=== PATIENT | female | born 1965 | race Hispanic/Latino ===

== ENCOUNTER 2016-06-18 15:50 | Inpatient (IN) | payer MEDICAID ==
[2016-06-18 15:51] VITALS: BMI 28.1
[2016-06-18 17:27] LABS: BASO # 0.1 K/uL (0.0-0.2); BASO % 0.8 % (0.0-2.0); EOS # 0.1 K/uL (0.0-0.7); EOS % 0.7 % (0.0-4.0); HEMATOCRIT 25.2 % (34.0-47.0); LYMPH # 2.2 K/uL (1.0-4.3); LYMPH % 13.2 % (20.0-40.0); MEAN CORPUSCULAR HEMOGLOBIN 32.7 pg (27.0-31.0); MEAN CORPUSCULAR HGB CONC 31.8 g/dL (33.0-37.0); MEAN PLATELET VOLUME 8.5 fL (7.2-11.7); MONO # 1.1 K/uL (0.0-0.8); MONO % 6.5 % (0.0-10.0); RED CELL DISTRIBUTION WIDTH 19.4 % (11.5-14.5)
--- NOTE | 2016-06-18 17:27 | C.PDOC ---
History Of Present Illness 50 year old female with a history of ESRD, DM, HTN, anemia, and CHF, presents to the ED after being sent from [facility] by Dr. Martinez for a hemoglobin of 7.3. Nursing notes also febrile T-max 99.2 and treated with Tylenol. Did not get dialysis today. PT axo x 2, limited information. Pt states she feels "good. " Time Seen by Provider: 06/18/16 16:32 Chief Complaint (Nursing): Abnormal Labs History Per: Other ([facility] papers) History/Exam Limitations: clinical condition Onset/Duration Of Symptoms: Days Current Symptoms Are (Timing): Still Present Severity: Mild Past Medical History Reviewed: Historical Data, Nursing Documentation, Vital Signs Vital Signs: Last Vital Signs Temp 98.1 F 06/18/16 17:55 Pulse 82 06/18/16 17:55 Resp 20 06/18/16 17:55 BP 159/91 H 06/18/16 17:55 Pulse Ox 97 06/18/16 18:13 - Medical History PMH: Anemia, Anxiety, CHF, Dementia, Depression, Diabetes, HTN, Hypercholesterolemia, Peripheral Edema (+2), Pneumonia, End Stage Renal Disease (DIALYSIS MWF), Chronic Kidney Disease Surgical History: Cholecystectomy (04/02/13) - [facility] Procedures BONE MARROW BIOPSY (02/10/13) DILATION OF LEFT CEPHALIC VEIN, PERCUTANEOUS APPROACH (08/20/15) EXTIRPATION OF MATTER FROM LEFT CEPHALIC VEIN, PERC APPROACH (08/20/15) FLUOROSCOPY OF DIALYSIS SHUNT/FISTULA USING OTHER CONTRAST (08/20/15) INJECT ANTICOAGULANT (03/02/14) INSERT INFUSION DEV IN R INT JUGULAR VEIN, PERC (08/20/15) LAPAROSCOPIC CHOLECYSTECTOMY (03/18/13) MAGNETIC RESONANCE IMAGING OF BRAIN AND BRAIN STEM (03/13/06) NEBULIZER THERAPY (01/27/07) OTHER ENDOSCOPY OF SM INTEST (02/10/13) OTHER SKIN & SUBQ I D (07/08/04) PACKED CELL TRANSFUSION (03/02/14) PERFORMANCE OF URINARY FILTRATION, MULTIPLE (08/20/15) PERFORMANCE OF URINARY FILTRATION, SINGLE (02/15/16) TETANUS TOXOID ADMINIST (07/08/04) ULTRASONOGRAPHY OF RIGHT JUGULAR VEINS, GUIDANCE (08/20/15) Family History: States: Unknown Family Hx - Social History Hx Tobacco Use: No Hx Alcohol Use: No Hx Substance Use: No - Immunization History Hx Tetanus Toxoid Vaccination: No Hx Influenza Vaccination: No (04/2015) Hx Pneumococcal Vaccination: Yes (03/2014) Review Of Systems Constitutional: Positive for: Fever, Other (Abnormal labs) Cardiovascular: Negative for: Chest Pain Respiratory: Negative for: Shortness of Breath Gastrointestinal: Negative for: Vomiting, Diarrhea Physical Exam - Physical Exam Appears: Non-toxic, No Acute Distress Skin: Warm, Dry, Other (+Erythematous sacral ulcer- stage 2) Head: Atraumatic, Normacephalic Eye(s): bilateral: Normal Inspection, EOMI Nose: Normal Oral Mucosa: Moist Chest: Symmetrical Cardiovascular: Rhythm Regular Respiratory: Normal Breath Sounds, No Accessory Muscle Use, No Rales, No Rhonchi , No Wheezing Gastrointestinal/Abdominal: Soft, No Tenderness, No Distention, No Guarding, No Rebound Extremity: Other (+Contracture to the left upper extremity) Neurological/Psych: Other (+Alert and oriented x2.) ED Course And Treatment - Laboratory Results Result Diagrams: 06/18/16 17:15 06/18/16 17:15 ECG: Interpreted By Me, Viewed By Me ECG Rhythm: Sinus Rhythm Interpretation Of ECG: No peaked T waves. Rate From EC O2 Sat by Pulse Oximetry: 97 (Room air) Pulse Ox Interpretation: Normal Progress Note: Blood work and urinalysis ordered and reviewed. She is a patient of Dr. Eldridge and will be admitted to the Hospitalist. Case discussed with Dr. Thomas who agreed with plan and admission. Disposition - Disposition Disposition: HOSPITALIZED Disposition Time: 19:22 Condition: STABLE - Clinical Impression Clinical Impression: ESRD (end stage renal disease) on dialysis, Hyperkalemia, Leukocytosis, Sacral decubitus ulcer, stage II - PA / INSPECTOR MECHANICAL / Resident Statement MD/DO has reviewed & agrees with the documentation as recorded. - Scribe Statement The provider has reviewed the documentation as recorded by the Scribe Mildred Yee. All medical record entries made by the Scribe were at my direction and personally dictated by me. I have reviewed the chart and agree that the record accurately reflects my personal performance of the history, physical exam, medical decision making, and the department course for this patient. I have also personally directed, reviewed, and agree with the discharge instructions and disposition.
[2016-06-18 17:34] LABS: POTASSIUM 5.9 mmol/L (3.6-5.2)
[2016-06-18 17:36] LABS: BILIRUBIN,TOTAL 1.1 mg/dL (0.2-1.3); MEAN CELL VOLUME 102.9 fL (81.0-99.0); WHITE BLOOD COUNT 16.8 K/uL (4.8-10.8)
[2016-06-18 17:37] LABS: ALB/GLOB RATIO 1.1 (1.0-2.1); CALCIUM 10.7 mg/dl (8.6-10.4); TOTAL PROTEIN 7.5 g/dL (6.3-8.3)
[2016-06-18 19:59] LABS: IRON 38 ug/dL (37-170)
--- NOTE | 2016-06-18 20:16 | CP.PCM.HP ---
<Sal Napier - Last Filed: 06/18/16 20:11> History of Present Illness - History of Present Illness History of Present Illness: cc: unable to obtain HPI: Patient is a 50 year old female with PMHx of depression, ESRD on HD, htn, HLD, DM, hx of CVAs, hx of Seizures, presenting to the ED after being brought in from [facility] for low grade fever (99.2), leukocytosis, and anemia of 7.3. Patient is a poor historian, AAO x1, disoriented to time and place. Patient does not appear to be in any acute distress and only complains of some dryness in her mouth. Patient is unaware of why she is here. As documented in previous records All: NKDA PMD: Dr. Eldridge, Dr. Mi (nephro) PMH: depression, ESRD on HD, HTN, hyperlipidemia, DM II, old CVA, hx of seizures PSH: cholecystectomy in 2013 Soc Hx: quit tobacco/etoh use in 2010 Present on Admission - Present on Admission Any Indicators Present on Admission: No Review of Systems - Constitutional Constitutional: absent: Chills, Fever, Weight Loss, Weakness - EENT Eyes: absent: Blurred Vision, Other Visual Disturbances, Loss of Vision Nose/Mouth/Throat: Dry Mouth - Cardiovascular Cardiovascular: absent: Chest Pain, Claudication, Irregular Heart Rhythm, Leg Edema, Palpitations, Pedal Edema - Respiratory Respiratory: absent: Cough, Dyspnea, Dyspnea on Exertion, Wheezing - Gastrointestinal Gastrointestinal: absent: Abdominal Pain, Constipation, Diarrhea, Nausea, Vomiting - Musculoskeletal Musculoskeletal: absent: Atrophy, Myalgias, Numbness, Tingling - Integumentary Integumentary: absent: Change in Hair, Skin Ulcer, Sores, Striae, Wounds - Neurological Neurological: absent: Abnormal Movements, Tingling, Weakness - Psychiatric Psychiatric: absent: Anxiety, Panic Attacks, Suicidal Ideation - Endocrine Endocrine: absent: Fatigue, Palpitations Past Patient History - Infectious Disease Hx of Infectious Diseases: None - Tetanus Immunizations Tetanus Immunization: Unknown - Past Medical History & Family History Past Medical History?: Yes - Past Social History Smoking Status: Former Smoker Chewing Tobacco Use: No Cigar Use: No Alcohol: None - CARDIAC Hx Congestive Heart Failure: Yes Hx Hypercholesterolemia: Yes Hx Hypertension: Yes Hx Peripheral Edema: Yes (+2) - PULMONARY Hx Pneumonia: Yes - NEUROLOGICAL Hx Dementia: Yes - HEENT Hx HEENT Problems: Yes (poor vision, blurred right eye) - RENAL Hx Chronic Kidney Disease: Yes - ENDOCRINE/METABOLIC Hx Hyperthyroidism: No Hx Hypothyroidism: No - HEMATOLOGICAL/ONCOLOGICAL Hx Anemia: Yes - INTEGUMENTARY Hx Dermatological Problems: No - MUSCULOSKELETAL/RHEUMATOLOGICAL Hx Arthritis: No Hx Fractures: No Hx Osteoporosis: No - GASTROINTESTINAL Hx Crohn's Disease: No Hx Diverticulitis: No Hx Gall Bladder Disease: No Hx Pancreatitis: No - GENITOURINARY/GYNECOLOGICAL Hx Sexually Transmitted Disorders: No - PSYCHIATRIC Hx Anxiety: Yes Hx Depression: Yes Hx Substance Use: No - SURGICAL HISTORY Hx Cholecystectomy: Yes (04/02/13) - ANESTHESIA Hx Anesthesia: Yes Hx Anesthesia Reactions: No Hx Malignant Hyperthermia: No Meds Allergies/Adverse Reactions: Allergies Allergy/AdvReac Type Severity Reaction Status Date / Time No Known Allergies Allergy Verified 06/18/16 16:03 Physical Exam - Constitutional Appears: Non-toxic, No Acute Distress, Older Than Stated Age - Head Exam Head Exam: ATRAUMATIC, NORMAL INSPECTION, NORMOCEPHALIC - Eye Exam Pupil Exam: NORMAL ACCOMODATION - ENT Exam ENT Exam: Mucous Membranes Dry, Mucous Membranes Moist - Respiratory Exam Respiratory Exam: Clear to Auscultation Bilateral, NORMAL BREATHING PATTERN. absent: Prolonged Expiratory Phase, Rales, Rhonchi, Wheezes - Cardiovascular Exam Cardiovascular Exam: REGULAR RHYTHM, +S1, +S2 - GI/Abdominal Exam GI & Abdominal Exam: Normal Bowel Sounds, Soft. absent: Distended, Firm, Tenderness - Extremities Exam Extremities exam: Positive for: normal capillary refill, pedal pulses present - Neurological Exam Neurological exam: Alert, CN II-XII Intact, Oriented x3 - Psychiatric Exam Psychiatric exam: Normal Affect, Normal Mood - Skin Skin Exam: Dry, Intact, Normal Color, Warm Results - Vital Signs Recent Vital Signs: Last Vital Signs Temp 98.6 F 06/18/16 18:15 Pulse 80 06/18/16 18:15 Resp 18 06/18/16 18:15 BP 173/87 H 06/18/16 18:15 Pulse Ox 97 06/18/16 19:23 - Labs Result Diagrams: 06/18/16 17:15 06/18/16 17:15 Labs: Laboratory Results - last 24 hr 06/18/16 19:42 Iron 38 Assessment & Plan (1) Leukocytosis Status: Acute Comment: WBC 16.8. Afebrile. Tylenol Q6h PRN for fevers. Collected 2 sets of blood cultures. f/u UA, Urine culture, C diff. CXR- followup official read. Repeat CXR tomorrow AM. Given Vanco 1gm IVPB today, started on Vanco 500mg IVPB MWF. started on Zosyn 2.25gm IVPB Q8h. started on Florastor 250mg PO BID (2) Anemia Status: Acute Comment: Hgb 8.0. MCV 102.9. stool occult neg. f/u B12, folate, iron studies , retic. Compared to past records, patients Hgb is relatively stable, will continue to monitor and transfuse as needed (3) Hyperkalemia Status: Acute Comment: K+ 5.9 on admission. Will undergo dialysis. Repeat BMP for later tonight. (4) ESRD (end stage renal disease) on dialysis Status: Chronic Comment: consult nephro- Dr. Mi. HD MWF (5) HTN (hypertension) Status: Chronic Comment: Continue home meds: Norvasc 10mg PO Daily. If elevated, will consider starting clonidine, as [facility] she [facility] on PRN clonidine 0.1mg (6) Hypercholesteremia Status: Chronic Comment: started on Crestor 10mg PO HS (7) Hypercalcemia associated with chronic dialysis Status: Acute Comment: Ca- 10.7. Likely due to prison dialysis. Bone density survey- 12/24- shows patchy demineralization seen at the skull and bilateral femurs and bilateral humeri (Please see full report) (8) Seizure Status: Acute Comment: Continue Trileptal 300mg PO BID. Seizure precautions (9) History of CVA (cerebrovascular accident) Status: Chronic Comment: Continue Plavix 75mg PO Daily. Continue Asa 81mg PO Daily (10) Sacral decubitus ulcer Status: Acute Comment: Wound care nurse referral. Turn pt Q2h (11) History of CHF (congestive heart failure) Status: Acute Comment: ordered 2d echo (12) Prophylactic measure Status: Chronic Comment: Pepcid 20mg PO BID. SCDs. Heparin 5000U SC Q8h <Dorie Murphy V - Last Filed: 06/19/16 07:52> Results - Vital Signs Recent Vital Signs: Last Vital Signs Temp 97.7 F 06/19/16 02:20 Pulse 64 06/19/16 03:00 Resp 20 06/19/16 02:20 BP 125/79 06/19/16 02:20 Pulse Ox 97 06/19/16 02:20 - Labs Result Diagrams: 06/19/16 06:56 06/19/16 06:56 Labs: Laboratory Results - last 24 hr 06/18/16 06/18/16 06/19/16 19:42 22:31 06:18 WBC RBC Hgb Hct MCV MCH MCHC RDW Plt Count MPV Neut % (Auto) Lymph % (Auto) [place] % (Auto) Eos % (Auto) Baso % (Auto) Neut # Lymph # [place] # Eos # Baso # Retic Count Sodium Potassium Chloride POC Glucose (mg/dL) 120 H 107 Iron 38 TIBC 265 % Saturation 15 L Albumin Cholesterol 06/19/16 06:56 WBC 15.3 H RBC 2.49 L Hgb 8.2 L Hct 25.5 L MCV 102.2 H MCH 32.7 H MCHC 32.0 L RDW 19.4 H Plt Count 295 MPV 8.5 Neut % (Auto) 75.4 H Lymph % (Auto) 14.7 L [place] % (Auto) 7.4 Eos % (Auto) 1.4 Baso % (Auto) 1.1 Neut # 11.6 H Lymph # 2.3 [place] # 1.1 H Eos # 0.2 Baso # 0.2 Retic Count 4.3 H D Sodium 138 Potassium 3.9 Chloride 91 L POC Glucose (mg/dL) Iron TIBC % Saturation Albumin 3.7 Cholesterol 157 Attending/Attestation - Attestation I have personally seen and examined this patient.: Yes I have fully participated in the care of the patient.: Yes I have reviewed all pertinent clinical information: Yes Notes (Text): This is late computer entry for 06/18/16 seen during her dialysis session at approximately 6:30PM. Patient is a poor historian unable to explain why she was brought to the hospital. Per transfer paperwork, patient transferred from her [facility] dialysis wherein she had an elevated temperature of 99.2F and anemia of hgb: 7.3. Patient reports she does not feel good. Patient reports she feels dry and does not have much of an appetite. Per review of patient's transfer paperwork and review of EMR, patient has history of diabetes, seizures, ESRD, hyperlipidemia, anemia of chronic disease, and congestive heart failure. Patient unable to tell me if she has taken her medications today. Patient is a poor historian and no family with her at bedside. Upon physical exam, patient is warm to touch, appears dry with white thrush over oral mucosa, heart sounds appear normal and lung sounds appear to have good airway exchange no apparent lung sounds, and pulse is palpable. Unable to turn patient during her dialysis to observe sacral decub noted by ER; will assess patient post dialysis. Upon review of labs, patient comes in with leukocytosis, afebrile, mild anemia but strongly suspecting relating to anemia of chronic disease, and hypekalemia. Patient receiving dialysis at bedside which should correct potassium. Discussed admitting orders with the resident; and transferred patient to telemetry given hyperkalemia and history of congestive heart failure. Nephrology consult (Dr. Martinez/Shmuel) on board Assessment/Plan (1) Leukocytosis Status: Acute Comment: WBC 16.8. Afebrile. Tylenol Q6h PRN for fevers. In the ED, patient had 2 blood cultures collected; repeat blood cultures taken during dialysis f/u UA, Urine culture, C diff. CXR- followup official read. Repeat CXR tomorrow AM post dialysis Given Vanco 1gm IVPB X1 today, Started on Vanco 500mg IVPB MW on dialysis days. Started on Zosyn 2.25gm IVPB Q8h. started on Florastor 250mg PO BID (2) Anemia Status: Acute Comment: Hgb 8.0. MCV 102.9. stool occult neg. f/u B12, folate, iron studies, retic. Compared to past records, patients Hgb is relatively stable, will continue to monitor and transfuse as needed (her prior blood work from 06/14/16 with her on the chart) (3) Hyperkalemia Status: Acute Comment: K+ 5.9 on admission. Will undergo dialysis. Repeat BMP for later tonight. Patient to be monitor on telemetry (4) ESRD (end stage renal disease) on dialysis Status: Chronic Comment: consult nephro- Dr. Mi. HD MWF (5) HTN (hypertension) Status: Chronic Comment: Continue home meds; per review of EMR and transfer paperwork there is discrepancy in her blood pressure medications. Patient undergoing dialysis today. Patient started on Norvasc 10mg PO daily will monitor for rebound hypertension given she [facility] (6) Hypercholesteremia Status: Chronic Comment: started on Crestor 10mg PO HS. Fasting lipid in AM. Lipitor not available on formulary. (7) Hypercalcemia associated with chronic dialysis Status: Acute Comment: Ca- 10.7. Likely due to termination clerk dialysis. Bone density survey- 02/18/16- shows patchy demineralization seen at the skull and bilateral femurs and bilateral humeri (Please see full report) Will follow-up with nephrology Monitor on telemetry (8) Seizure Status: Chronic Comment: Continue Trileptal 300mg PO BID. Seizure precautions (9) History of CVA (cerebrovascular accident) Status: Chronic Comment: Continue Plavix 75mg PO Daily. Continue Asa 81mg PO Daily, continue Crestor 10mg POqHS PT/OT eval (10) Sacral decubitus ulcer Status: Acute Comment: Wound care nurse referral. Turn pt Q2h; will need to monitor site post -dialysis given she currently connected to the dialysis machine rule out sources for leukocytosis (11) History of CHF (congestive heart failure) Status: Chronic Comment: ordered 2d echo for baseline EF Patient started on Aspirin, Plavix, Statin, and currently on norvasc. Monitor daily weights Intake and outputs (12) Prophylactic measure Status: Chronic Comment: Pepcid 20mg PO daily. SCDs. Heparin 5000U SC Q12h PT/OT
[2016-06-18] MEDS: Nystatin 100,000 Units/ml Oral Susp 5 ml UD PO SCH (22:07)
[2016-06-19] MEDS ORDERED: Sodium Chloride 0.9% 1,000 ML IV SCH (01:00)
[2016-06-19] MEDS: Piperacill/Tazo 2.25gm in Dex 50 ML IVPB SCH ×4 (03:00→19:00)
[2016-06-19 07:20] LABS: MEAN PLATELET VOLUME 8.5 fL (7.2-11.7); MONO # 1.1 K/uL (0.0-0.8)
[2016-06-19 07:36] LABS: CHLORIDE 91 mmol/L (98-107); POTASSIUM 3.9 mmol/L (3.6-5.2); SODIUM 138 mmol/L (132-148)
[2016-06-19 07:37] LABS: BASO # 0.2 K/uL (0.0-0.2); BASO % 1.1 % (0.0-2.0); EOS # 0.2 K/uL (0.0-0.7); EOS % 1.4 % (0.0-4.0); HEMATOCRIT 25.5 % (34.0-47.0); LYMPH # 2.3 K/uL (1.0-4.3); LYMPH % 14.7 % (20.0-40.0); MEAN CELL VOLUME 102.2 fL (81.0-99.0); MEAN CORPUSCULAR HEMOGLOBIN 32.7 pg (27.0-31.0); MONO % 7.4 % (0.0-10.0); RED CELL DISTRIBUTION WIDTH 19.4 % (11.5-14.5); RETIC% 4.3 % (0.5-1.5); WHITE BLOOD COUNT 15.3 K/uL (4.8-10.8)
[2016-06-19 07:38] LABS: ALB/GLOB RATIO 1.3 (1.0-2.1); ALKALINE PHOSPHATASE 143 U/L (38-126); AST/SGOT 22 U/L (14-36); BILIRUBIN,TOTAL 0.6 mg/dL (0.2-1.3); BLOOD UREA NITROGEN 28 mg/dL (7-17); CARBON DIOXIDE 27 mmol/L (22-30); CHOLESTEROL 157 mg/dL (0-199); GFR AFRICAN-AMERICAN 16; GLUCOSE,RANDOM 80 mg/dL (65-105); TOTAL PROTEIN 6.6 g/dL (6.3-8.3)
[2016-06-19 07:39] LABS: ALT/SGPT 28 U/L (9-52); CALCIUM 10.1 mg/dl (8.6-10.4)
--- NOTE | 2016-06-19 08:27 | RAD ---
PROCEDURE: CHEST RADIOGRAPH, 1 VIEW HISTORY: fever COMPARISON: 02/15/2016 FINDINGS: LUNGS: Left central venous catheter tip extending into the distal right atrium. No focal infiltrate or effusion. PLEURA: No pneumothorax or pleural fluid seen. CARDIOVASCULAR: Normal. OSSEOUS STRUCTURES: No significant abnormalities. VISUALIZED UPPER ABDOMEN: Normal. OTHER FINDINGS: None. IMPRESSION: Left central venous catheter tip extending into the distal right atrium. No focal infiltrate or effusion.
[2016-06-19 08:29] LABS: FOLATE > 20.0 ng/mL
--- NOTE | 2016-06-19 09:03 | RAD ---
HISTORY: fevers COMPARISON: 06/18/2016 FINDINGS: LUNGS: Lines and tubes in stable position. Mild venous congestion. Right hilar prominence. PLEURA: No significant pleural effusion identified, no pneumothorax apparent. CARDIOVASCULAR: Normal. OSSEOUS STRUCTURES: No significant abnormalities. VISUALIZED UPPER ABDOMEN: Normal. OTHER FINDINGS: None. IMPRESSION: Lines and tubes in stable position. Mild venous congestion. Right hilar prominence.
--- NOTE | 2016-06-19 09:40 | CP.PCM.PN ---
<Nallely Beck - Last Filed: 06/19/16 13:15> Subjective - Date & Time of Evaluation Date of Evaluation: 06/19/16 Time of Evaluation: 09:38 - Subjective Subjective: Patient seen and examined at bedside. Full review of systems unable to be obtained as patient oriented only to herself. She does not know the year, her age, or why she was brought into the hospital. She states she feels horrible but denies fever, chills, chest pain, shortness of breath, abdominal pain, nausea, vomiting, diarrhea, and constipation. Patient states she makes some urine; however, she is notably distended on exam. Objective - Vital Signs/Intake and Output Vital Signs (last 24 hours): Temp Pulse Resp BP Pulse Ox 98.1 F 64 20 171/78 H 98 06/19/16 07:00 06/19/16 09:09 06/19/16 07:00 06/19/16 07:00 06/19/16 07:00 Intake and Output: 06/19/16 06/19/16 06:59 18:59 Intake Total 0 Balance 0 - Medications Medications: Current Medications Acetaminophen (Tylenol 325mg Tab) 650 mg PO Q6 PRN PRN Reason: Fever >100.4 F Amlodipine Besylate (Norvasc) 10 mg PO DAILY [facility] Aspirin (Ecotrin) 81 mg PO DAILY [facility] Clopidogrel Bisulfate (Plavix) 75 mg PO DAILY [facility] Famotidine (Pepcid) 20 mg PO DAILY [facility] Gabapentin (Neurontin) 100 mg PO TID [facility] Heparin Sodium (Porcine) (Heparin) 5,000 units SC Q12 [facility] Piperacillin Sod/Tazobactam Sod (Zosyn 2.25 Gm Iv Premix) 50 mls @ 100 mls/hr IVPB Q8H [facility] Last Admin: 06/19/16 03:00 Dose: Not Given Vancomycin HCl 500 mg/ Sodium (Chloride) 100 mls @ 100 mls/hr IVPB MWF [facility] Sodium Chloride (Sodium Chloride 0.9%) 1,000 mls @ 50 mls/hr IV .Q20H [facility] Last Admin: 06/19/16 00:22 Dose: 50 mls/hr Nystatin (Nystatin Oral Susp) 5 ml PO QID [facility] Last Admin: 06/18/16 22:07 Dose: Not Given Oxcarbazepine (Trileptal) 300 mg PO BID [facility] Rosuvastatin Calcium (Crestor) 10 mg PO HS [facility] Last Admin: 06/18/16 22:04 Dose: 10 mg Saccharomyces Boulardii (Florastor) 250 mg PO BID [facility] - Labs Labs: 06/19/16 06:56 06/19/16 06:56 PT 10.8 SECONDS (9.7-12.2) 06/18/16 17:15 INR 1.0 06/18/16 17:15 APTT 23 SECONDS (21-34) 06/18/16 17:15 - Constitutional Appears: Non-toxic, No Acute Distress, Older Than Stated Age - Head Exam Head Exam: ATRAUMATIC, NORMAL INSPECTION, NORMOCEPHALIC - Eye Exam Eye Exam: PERRL Additional comments: left strabismus. Unable to follow command to perform H in space. - ENT Exam ENT Exam: Mucous Membranes Moist Additional comments: white film noted on dorsum of tongue - Neck Exam Neck Exam: Normal Inspection - Respiratory Exam Respiratory Exam: Clear to Ausculation Bilateral, NORMAL BREATHING PATTERN. absent: Rales, Rhonchi, Wheezes - Cardiovascular Exam Cardiovascular Exam: +S1, +S2. absent: Tachycardia, Murmur - GI/Abdominal Exam GI & Abdominal Exam: Distended, Tenderness, Normal Bowel Sounds Additional comments: bladder distended - Extremities Exam Additional comments: 3/5 strength bilaterally to upper extremities, 2/5 strength bilaterally to lower extremities. Pulses intact , 2+ throughout - Neurological Exam Neurological Exam: Alert Neuro motor strength exam: Left Upper Extremity: 3, Right Upper Extremity: 3, Left Lower Extremity: 2/1, Right Lower Extremity: 2/1 Additional comments: patient only oriented to self - Psychiatric Exam Psychiatric exam: Normal Affect, Normal Mood - Skin Additional comments: Stage I/II Sacral Ulcer Assessment and Plan - Assessment and Plan (Free Text) Assessment: (1) Leukocytosis Status: Acute Likely secondary to urinary tract infection secondary to retention. Patient noted to be distended on exam. Stat order placed for straight cath. Follow-up UA and culture. Procalcitonin 1.49 WBC improved from 16.8 to 15.3. Afebrile. Tylenol Q6h PRN for fevers. In the ED, patient had 2 blood cultures collected; repeat blood cultures taken during dialysis. Will follow-up. C diff. negative CXR (06/18/16)-No focal infiltrate Repeat CXR (06/19/16)-mild venous congestion. Right hilar prominence. Given Vanco 1gm IVPB X1 today, Continue on Vanco 500mg IVPB MW on dialysis days. Continue on Zosyn 2.25gm IVPB Q8h. Continue on Florastor 250mg PO BID (2) Anemia Status: Acute Comment: Hgb improved from 8.0 to 8.2. MCV 102.9. RDW 19.4 tool occult neg. Retic count 4.3, Iron 38, TIBC 265, % Saturation 11, Ferritin 1350 Vit B12 >1000, folate >20.0 Compared to past records, patients Hgb is relatively stable, will continue to monitor and transfuse as needed (her prior blood work from 06/14/16 with her on the chart) Per nephrology, Dr. Mi, will start Epoetin brian 10,000 unit SC MWF (3) Hyperkalemia Status: Acute Comment: Resolved K+ 5.9 on admission. Patient to be monitor on telemetry (4) ESRD (end stage renal disease) on dialysis Status: Chronic Hemodialysis on MWF (5) HTN (hypertension) Status: Chronic Patient undergoing dialysis today. Continue Norvasc 10mg PO daily will monitor for rebound hypertension given she was being given PRN clonidine at the skilled nursing (6) Hypercholesteremia Status: Chronic Comment: Continue Crestor 10mg PO HS. Triglycerides 225 (7) Hypercalcemia associated with chronic dialysis Status: Acute Comment: Ca- 10.7. Likely due to [facility] dialysis. Bone density survey- 02/18/16- shows patchy demineralization seen at the skull and bilateral femurs and bilateral humeri (Please see full report) Will follow-up with nephrology Monitor on telemetry (8) Seizure Status: Chronic Comment: Continue Trileptal 300mg PO BID. Seizure precautions (9) History of CVA (cerebrovascular accident) Status: Chronic Comment: Continue Plavix 75mg PO Daily. Continue Asa 81mg PO Daily, continue Crestor 10mg POqHS PT/OT eval (10) Sacral decubitus ulcer Status: Acute Stage I/II sacral ulcer Wound care nurse referral. Turn pt Q2h; will need to monitor site post- dialysis given she currently connected to the dialysis machine rule out sources for leukocytosis (11) Thrush Status: Acute Continue Nystatin 5 ml po QID (12) History of CHF (congestive heart failure) Status: Chronic Will follow-up echo for baseline EF Patient started on Aspirin, Plavix, Statin, and currently on norvasc. Monitor daily weights Intake and outputs (13) Prophylactic measure Status: Chronic Pepcid 20mg PO daily SCDs Heparin 5000U SC Q12h PT/OT <Dorie Murphy V - Last Filed: 06/20/16 16:34> Objective - Vital Signs/Intake and Output Vital Signs (last 24 hours): Temp Pulse Resp BP Pulse Ox 97.9 F 71 18 149/82 99 06/20/16 15:41 06/20/16 15:41 06/20/16 15:41 06/20/16 15:41 06/20/16 15:41 Intake and Output: 06/20/16 06/20/16 06:59 18:59 Intake Total 24 Balance 24 - Medications Medications: Current Medications Acetaminophen (Tylenol 325mg Tab) 650 mg PO Q6 PRN PRN Reason: Fever >100.4 F Amlodipine Besylate (Norvasc) 10 mg PO DAILY [facility] Last Admin: 06/20/16 12:12 Dose: Not Given Aspirin (Ecotrin) 81 mg PO DAILY [facility] Last Admin: 06/20/16 09:47 Dose: Not Given Clopidogrel Bisulfate (Plavix) 75 mg PO DAILY [facility] Last Admin: 06/20/16 09:48 Dose: Not Given Epoetin Brian (Procrit) 10,000 unit IV MWF [facility] Last Admin: 06/20/16 12:19 Dose: 10,000 unit Famotidine (Pepcid) 20 mg PO DAILY [facility] Last Admin: 06/20/16 09:48 Dose: Not Given Gabapentin (Neurontin) 100 mg PO TID [facility] Last Admin: 06/20/16 14:07 Dose: 100 mg Heparin Sodium (Porcine) (Heparin) 5,000 units SC Q12 [facility] Last Admin: 06/20/16 09:47 Dose: Not Given Piperacillin Sod/Tazobactam Sod (Zosyn 2.25 Gm Iv Premix) 50 mls @ 100 mls/hr IVPB Q8H [facility] Last Admin: 06/20/16 12:13 Dose: Not Given Vancomycin HCl 500 mg/ Sodium (Chloride) 100 mls @ 100 mls/hr IVPB MWF [facility] Last Admin: 06/20/16 10:00 Dose: Not Given Nystatin (Nystatin Oral Susp) 5 ml PO QID [facility] Last Admin: 06/20/16 14:06 Dose: 5 ml Oxcarbazepine (Trileptal) 300 mg PO BID [facility] Last Admin: 06/20/16 09:48 Dose: Not Given Rosuvastatin Calcium (Crestor) 10 mg PO HS [facility] Last Admin: 06/19/16 21:29 Dose: 10 mg Saccharomyces Boulardii (Florastor) 250 mg PO BID [facility] Last Admin: 06/20/16 09:47 Dose: Not Given - Labs Labs: 06/20/16 10:20 06/20/16 10:00 PT 10.8 SECONDS (9.7-12.2) 06/18/16 17:15 INR 1.0 06/18/16 17:15 APTT 23 SECONDS (21-34) 06/18/16 17:15 Attending/Attestation - Attestation I have personally seen and examined this patient.: Yes I have fully participated in the care of the patient.: Yes I have reviewed all pertinent clinical information, including history, physical exam and plan: Yes Notes (Text): This is late computer entry for 06/19/16. Patient seen, examined, and case discussed with day-time resident. Patient is oriented to self only. On physical exam, on patient's bladder appears distended. Patient unable to tell me if she makes urine or not. Advised nursing to straight cath and if unable to perform Bladder scan to see if patient is retaining or not. Visualized patient's sacral ulcer: erythemaous over the gluteal cleft and finger area of whiteness. No bone visualized. Wound care orders advised. Sacral wound growth: gram negative konstantin awaiting speciation; awaiting urine studies. Patient is currently on IV empiric antibiotic therapy until cultures result. Completed echocardiogram today Potassium normalized following dialysis yesterday. Unlikely this is an acute drop in patient's hemoglobin; suspecting anemia of chronic disease Assessment/Plan (1) Leukocytosis Status: Acute Comment: WBC 16.8-->15.3 Tylenol Q6h PRN for fevers. In the ED, patient had 2 blood cultures collected; repeat blood cultures taken during dialysis f/u UA, Urine culture, C diff. CXR (06/19/16): left central venous catheter tip extending into the distal right atrium. No focal infiltrate or effusion. CXR (06/19/16): lines and tubes in stable position. mild venous congestion. right hilar prominence Given Vanco 1gm IVPB X1 on admission Started on Vanco 500mg IVPB MWF on dialysis days. Started on Zosyn 2.25gm IVPB Q8h (active since 06/18/16) started on Florastor 250mg PO BID Procalcitonin: 1.49 (bacterial) Sacral wound: gram negative konstantin prelim (2) Anemia Status: Acute Comment: Hgb 8.2. MCV 102.9. stool occult neg. B12 >1000 Folate: 20.0 Reticulocyte count: 4.3 low percent iron, iron:38, TIBC: 265, high ferritin, occult negative Compared to past records, patients Hgb is relatively stable, will continue to monitor and transfuse as needed (her prior blood work from 06/14/16 with her on the chart) (3) Hyperkalemia Status: Acute Comment: K+ 5.9 on admission; underwent dialysis and normalized Patient to be monitor on telemetry (4) ESRD (end stage renal disease) on dialysis Status: Chronic Comment: consult nephro- Dr. Mi. HD MWF (5) HTN (hypertension) Status: Chronic Comment: Continue home meds; per review of EMR and transfer paperwork there is discrepancy in her blood pressure medications. Patient undergoing dialysis today. Patient started on Norvasc 10mg PO daily will monitor for rebound hypertension given she was being given PRN clonidine at the skilled nursing (6) Hypercholesteremia Status: Chronic Comment: started on Crestor 10mg PO HS. T, chol: 157, LDL: 61, and HDL:49 (7) Hypercalcemia associated with chronic dialysis Status: Acute Comment: Ca- 10.1. Likely due to [facility] dialysis. Bone density survey- 02/18/16- shows patchy demineralization seen at the skull and bilateral femurs and bilateral humeri (Please see full report) Will follow-up with nephrology Monitor on telemetry (8) Seizure Status: Chronic Comment: Continue Trileptal 300mg PO BID. Seizure precautions (9) History of CVA (cerebrovascular accident) Status: Chronic Comment: Continue Plavix 75mg PO Daily. Continue Asa 81mg PO Daily, continue Crestor 10mg POqHS PT/OT eval (10) Sacral decubitus ulcer Status: Acute Comment: Wound care nurse referral. Turn pt Q2h; will need to monitor site post -dialysis given she currently connected to the dialysis machine rule out sources for leukocytosis Sacral wound: gram negative konstantin prelim (11) History of CHF (congestive heart failure) Status: Chronic Comment: Patient started on Aspirin, Plavix, Statin, and currently on norvasc. Monitor daily weights Intake and outputs Echocardiogram (06/19/16): mild concentric left ventricular hypertrophy. left ventricle systolic function is normal EF >70% (12) Prophylactic measure Status: Chronic Comment: Pepcid 20mg PO daily. SCDs. Heparin 5000U SC Q12h PT/OT eval wound care referral
[2016-06-19] MEDS: Saccharomyces Boulardi 250 mg Cap PO SCH ×2 (10:30→18:00)
[2016-06-19] MEDS: Nystatin 100,000 Units/ml Oral Susp 5 ml UD PO SCH ×4 (10:30→21:29)
--- NOTE | 2016-06-19 10:47 | CP.PCM.CON ---
History of Present Illness - History of Present Illness History of Present Illness: 50 y/o female with Hx/o ESRD on maintenance HD, MWF, HTN,DM.,CVA corey disorter was sent to ER from Dialysis center because Pt appeared very weak & pale. Pt had stated that she did not feel well. Pts Hb on out patient blood work was 7.3. Two wks ago Hb was 10.3 Pt also has Hx/o hypercalcemia. Had w/u in the past but etiology remains unclear. Past Patient History - Infectious Disease Hx of Infectious Diseases: None - Tetanus Immunizations Tetanus Immunization: Unknown - Past Medical History & Family History Past Medical History?: Yes - Past Social History Smoking Status: Former Smoker - CARDIAC Hx Congestive Heart Failure: Yes Hx Hypercholesterolemia: Yes Hx Hypertension: Yes Hx Peripheral Edema: Yes (+2) - PULMONARY Hx Pneumonia: Yes - NEUROLOGICAL Hx Dementia: Yes - HEENT Hx HEENT Problems: Yes (poor vision, blurred right eye) - RENAL Hx Chronic Kidney Disease: Yes Type of Dialysis Access: left IJ cath Date of Last Dialysis Treatment: 06/18/16 Hx Renal Failure: Yes - ENDOCRINE/METABOLIC Hx Diabetes Mellitus Type 2: Yes Hx Hyperthyroidism: No Hx Hypothyroidism: No - HEMATOLOGICAL/ONCOLOGICAL Hx Anemia: Yes - INTEGUMENTARY Hx Dermatological Problems: No - MUSCULOSKELETAL/RHEUMATOLOGICAL Hx Falls: No Other/Comment: wheelchairbound - GASTROINTESTINAL Hx Crohn's Disease: No Hx Diverticulitis: No Hx Gall Bladder Disease: No Hx Pancreatitis: No - GENITOURINARY/GYNECOLOGICAL Hx Sexually Transmitted Disorders: No - PSYCHIATRIC Hx Anxiety: Yes Hx Substance Use: No - SURGICAL HISTORY Hx Cholecystectomy: Yes (04/02/13) - ANESTHESIA Hx Anesthesia: Yes Hx Anesthesia Reactions: No Hx Malignant Hyperthermia: No Meds Allergies/Adverse Reactions: Allergies Allergy/AdvReac Type Severity Reaction Status Date / Time No Known Allergies Allergy Verified 06/18/16 16:03 - Medications Medications: Current Medications Acetaminophen (Tylenol 325mg Tab) 650 mg PO Q6 PRN PRN Reason: Fever >100.4 F Amlodipine Besylate (Norvasc) 10 mg PO DAILY [facility] Last Admin: 06/19/16 10:30 Dose: 10 mg Aspirin (Ecotrin) 81 mg PO DAILY [facility] Last Admin: 06/19/16 10:30 Dose: 81 mg Clopidogrel Bisulfate (Plavix) 75 mg PO DAILY [facility] Last Admin: 06/19/16 10:31 Dose: 75 mg Famotidine (Pepcid) 20 mg PO DAILY [facility] Last Admin: 06/19/16 10:30 Dose: 20 mg Gabapentin (Neurontin) 100 mg PO TID [facility] Last Admin: 06/19/16 10:30 Dose: 100 mg Heparin Sodium (Porcine) (Heparin) 5,000 units SC Q12 [facility] Last Admin: 06/19/16 10:30 Dose: 5,000 units Piperacillin Sod/Tazobactam Sod (Zosyn 2.25 Gm Iv Premix) 50 mls @ 100 mls/hr IVPB Q8H [facility] Last Admin: 06/19/16 10:33 Dose: 100 mls/hr Vancomycin HCl 500 mg/ Sodium (Chloride) 100 mls @ 100 mls/hr IVPB MWF [facility] Sodium Chloride (Sodium Chloride 0.9%) 1,000 mls @ 50 mls/hr IV .Q20H [facility] Last Admin: 06/19/16 00:22 Dose: 50 mls/hr Nystatin (Nystatin Oral Susp) 5 ml PO QID [facility] Last Admin: 06/19/16 10:30 Dose: 5 ml Oxcarbazepine (Trileptal) 300 mg PO BID [facility] Last Admin: 06/19/16 10:31 Dose: 300 mg Rosuvastatin Calcium (Crestor) 10 mg PO HS [facility] Last Admin: 06/18/16 22:04 Dose: 10 mg Saccharomyces Boulardii (Florastor) 250 mg PO BID [facility] Last Admin: 06/19/16 10:30 Dose: 250 mg Physical Exam - Constitutional Appears: No Acute Distress - Head Exam Head Exam: ATRAUMATIC, NORMOCEPHALIC - Eye Exam Additional comments: No icterus - ENT Exam ENT Exam: Mucous Membranes Dry - Neck Exam Additional comments: Neck supple - Respiratory Exam Respiratory Exam: NORMAL BREATHING PATTERN Additional comments: Lungs clear - Cardiovascular Exam Cardiovascular Exam: REGULAR RHYTHM - GI/Abdominal Exam Additional comments: Abdomen is soft , nontender - Extremities Exam Additional comments: No edema or cyanosis Results - Vital Signs Recent Vital Signs: Last Vital Signs Temp 98.1 F 06/19/16 07:00 Pulse 64 06/19/16 09:09 Resp 20 06/19/16 07:00 BP 171/78 H 06/19/16 07:00 Pulse Ox 98 06/19/16 07:00 - Labs Result Diagrams: 06/19/16 06:56 06/19/16 06:56 Labs: Laboratory Results - last 24 hr 06/18/16 06/18/16 06/19/16 19:42 22:31 06:18 WBC RBC Hgb Hct MCV MCH MCHC RDW Plt Count MPV Neut % (Auto) Lymph % (Auto) Maries % (Auto) Eos % (Auto) Baso % (Auto) Neut # Lymph # Maries # Eos # Baso # Retic Count Sodium Potassium Chloride Carbon Dioxide Anion Gap BUN Creatinine Est GFR ( Amer) Est GFR (Non-Af Amer) POC Glucose (mg/dL) 120 H 107 Random Glucose Hemoglobin A1c Calcium Iron 38 TIBC 265 % Saturation 15 L Ferritin Total Bilirubin AST ALT Alkaline Phosphatase Total Protein Albumin Globulin Albumin/Globulin Ratio Triglycerides Cholesterol LDL Cholesterol Direct HDL Cholesterol Vitamin B12 Folate 06/19/16 06:56 WBC 15.3 H RBC 2.49 L Hgb 8.2 L Hct 25.5 L MCV 102.2 H MCH 32.7 H MCHC 32.0 L RDW 19.4 H Plt Count 295 MPV 8.5 Neut % (Auto) 75.4 H Lymph % (Auto) 14.7 L Maries % (Auto) 7.4 Eos % (Auto) 1.4 Baso % (Auto) 1.1 Neut # 11.6 H Lymph # 2.3 Maries # 1.1 H Eos # 0.2 Baso # 0.2 Retic Count 4.3 H D Sodium 138 Potassium 3.9 Chloride 91 L Carbon Dioxide 27 Anion Gap 24 H BUN 28 H Creatinine 3.7 H Est GFR ( Amer) 16 Est GFR (Non-Af Amer) 13 POC Glucose (mg/dL) Random Glucose 80 Hemoglobin A1c 5.8 Calcium 10.1 Iron TIBC % Saturation 11 L Ferritin 1350.0 Total Bilirubin 0.6 AST 22 ALT 28 Alkaline Phosphatase 143 H Total Protein 6.6 Albumin 3.7 Globulin 2.9 Albumin/Globulin Ratio 1.3 Triglycerides 225 H D Cholesterol 157 LDL Cholesterol Direct 61 HDL Cholesterol 49 Vitamin B12 > 1000 H Folate > 20.0 Assessment & Plan - Assessment and Plan (Free Text) Assessment: ESRD on HD Fever & Leukocytosis r/o sepsis Anemia HTN DM Plan: Blood cultures were done & pt was given loading dose of Vanco. Continue vanco 500 mg with MWF Start Epogen, cannot start venofer because of high Ferritin
--- NOTE | 2016-06-19 12:02 | CARD ---
APPROVED REPORT EKG Measurement Heart [id number] <Conclusion> Normal sinus rhythm Left axis deviation Cannot rule out Anterior infarct, age undetermined Abnormal ECG
--- NOTE | 2016-06-19 13:11 | CARD ---
APPROVED REPORT EXAM: Two-dimensional and M-mode echocardiogram with Doppler and color Doppler. Other Information Quality : GoodRhythm : NSR INDICATION Syncope Congestive Heart Failure ESRD, ANEMIA, HYPERKALEMIA SAC RISK FACTORS Hypertension Hyperlipidemia Diabetes M-Mode DIMENSIONS RVDd1.62 (2.1-3.2cm)Left Atrium (MM)4.06 (2.5-4.0cm) IVSd1.07 (0.7-1.1cm)Aortic Root2.91 (2.2-3.7cm) LVDd4.13 (4.0-5.6cm)Aortic Cusp Exc.1.18 (1.5-2.0cm) PWd1.73 (0.7-1.1cm)FS (%) 38 % LVDs2.54 (2.0-3.8cm)LVEF (%)69 (>50%) Aortic Valve AoV Peak Hxvrdwgq140.5cm/Akash Peak GR.15mmHg Mitral Valve MV E Ibvequbq93.8cm/sMV A Efuifaub612.5cm/sE/A ratio0.7 TDI E/Lateral E'0.0E/Medial E'0.0 Tricuspid Valve TR Peak Nmevgwzk112rl/sTR Peak Gr.[id number] LEFT VENTRICLE The left ventricle is normal size. There is mild concentric left ventricular hypertrophy. Left ventricle systolic function is normal. The Ejection Fraction is >70%. There is normal LV segmental wall motion. Transmitral Doppler flow pattern is Grade I-abnormal relaxation pattern. There is no ventricular septal defect visualized. RIGHT VENTRICLE The right ventricle is normal size. The right ventricular systolic function is normal. ATRIA The left atrium is mildly dilated. The right atrium size is normal. AORTIC VALVE The aortic valve is mildly to moderately sclerotic. The aortic valve is tri-cuspid. No aortic regurgitation is present. There is no aortic valvular stenosis. MITRAL VALVE The mitral valve is normal in structure. There is no evidence of mitral valve prolapse. There is no mitral valve regurgitation noted. TRICUSPID VALVE The tricuspid valve is normal in structure. There is trace tricuspid regurgitation. Right ventricular systolic pressure is estimated at less than 30 mmHg. There is no pulmonary hypertension. PULMONIC VALVE The pulmonic valve is not well visualized. There is no pulmonic valvular regurgitation. GREAT VESSELS The IVC is normal in size and collapses >50% with inspiration. PERICARDIAL EFFUSION There is no pericardial effusion. <Conclusion> There is mild concentric left ventricular hypertrophy. Left ventricle systolic function is normal. The Ejection Fraction is >70%. Transmitral Doppler flow pattern is Grade I-abnormal relaxation pattern.
[2016-06-20] MEDS: Piperacill/Tazo 2.25gm in Dex 50 ML IVPB SCH ×3 (02:28→18:17)
[2016-06-20] MEDS ORDERED: EPOETIN ALFA 10,000 UNIT/ML ML SC SCH (09:00)
[2016-06-20] MEDS: Nystatin 100,000 Units/ml Oral Susp 5 ml UD PO SCH ×4 (09:47→21:11)
[2016-06-20] MEDS: Saccharomyces Boulardi 250 mg Cap PO SCH ×2 (09:47→17:05)
[2016-06-20] MEDS ORDERED: Albumin Human 25% (12.5 gm/50 ml) IV STA ×2 (10:29→10:35)
[2016-06-20 10:30] LABS: BASO # 0.1 K/uL (0.0-0.2); BASO % 0.7 % (0.0-2.0); EOS # 0.2 K/uL (0.0-0.7); EOS % 2.8 % (0.0-4.0); HEMATOCRIT 21.5 % (34.0-47.0); LYMPH # 1.5 K/uL (1.0-4.3); LYMPH % 18.6 % (20.0-40.0); MEAN CELL VOLUME 101.6 fL (81.0-99.0); MEAN CORPUSCULAR HEMOGLOBIN 33.9 pg (27.0-31.0); MEAN CORPUSCULAR HGB CONC 33.3 g/dL (33.0-37.0); MEAN PLATELET VOLUME 8.1 fL (7.2-11.7); MONO # 0.6 K/uL (0.0-0.8); MONO % 7.2 % (0.0-10.0); RED CELL DISTRIBUTION WIDTH 18.5 % (11.5-14.5); WHITE BLOOD COUNT 7.8 K/uL (4.8-10.8)
[2016-06-20 10:32] LABS: POTASSIUM 2.9 mmol/L (3.6-5.2)
[2016-06-20 10:34] LABS: BILIRUBIN,TOTAL 0.4 mg/dL (0.2-1.3); TOTAL PROTEIN 6.3 g/dL (6.3-8.3)
[2016-06-20 10:35] LABS: CALCIUM 8.9 mg/dl (8.6-10.4); MAGNESIUM 2.2 mg/dL (1.6-2.3)
[2016-06-20] MEDS ORDERED: Epoetin Alfa 10,000 unit/ml Dialysis SC SCH (11:00)
--- NOTE | 2016-06-20 11:37 | CP.PCM.PN ---
<Hugo Beckelle - Last Filed: 06/20/16 17:01> Subjective - Date & Time of Evaluation Date of Evaluation: 06/20/16 Time of Evaluation: 11:34 - Subjective Subjective: Patient seen and examined at bedside. Per nurse, no acute events overnight. Full review of symptoms unable to be obtained as patient only oriented to herself. Patient has no complaints. She denies fever, chills, chest pain, palpitations, shortness of breath, abdominal pain, nausea, vomiting, constipation, and diarrhea. Patient is incontinent. Objective - Vital Signs/Intake and Output Vital Signs (last 24 hours): Temp Pulse Resp BP Pulse Ox 96.9 F L 59 L 16 82/50 L 99 06/20/16 09:20 06/20/16 09:20 06/20/16 09:20 06/20/16 10:15 06/20/16 09:20 Intake and Output: 06/20/16 06/20/16 06:59 18:59 Intake Total 24 Balance 24 - Medications Medications: Current Medications Acetaminophen (Tylenol 325mg Tab) 650 mg PO Q6 PRN PRN Reason: Fever >100.4 F Amlodipine Besylate (Norvasc) 10 mg PO DAILY [facility] Last Admin: 06/19/16 10:30 Dose: 10 mg Aspirin (Ecotrin) 81 mg PO DAILY [facility] Last Admin: 06/20/16 09:47 Dose: Not Given Clopidogrel Bisulfate (Plavix) 75 mg PO DAILY [facility] Last Admin: 06/20/16 09:48 Dose: Not Given Epoetin Brian (Procrit) 10,000 unit IV MWF [facility] Famotidine (Pepcid) 20 mg PO DAILY [facility] Last Admin: 06/20/16 09:48 Dose: Not Given Gabapentin (Neurontin) 100 mg PO TID [facility] Last Admin: 06/20/16 09:47 Dose: Not Given Heparin Sodium (Porcine) (Heparin) 5,000 units SC Q12 [facility] Last Admin: 06/20/16 09:47 Dose: Not Given Piperacillin Sod/Tazobactam Sod (Zosyn 2.25 Gm Iv Premix) 50 mls @ 100 mls/hr IVPB Q8H [facility] Last Admin: 06/20/16 02:28 Dose: 100 mls/hr Vancomycin HCl 500 mg/ Sodium (Chloride) 100 mls @ 100 mls/hr IVPB MWF [facility] Nystatin (Nystatin Oral Susp) 5 ml PO QID [facility] Last Admin: 06/20/16 09:47 Dose: Not Given Oxcarbazepine (Trileptal) 300 mg PO BID [facility] Last Admin: 06/20/16 09:48 Dose: Not Given Rosuvastatin Calcium (Crestor) 10 mg PO HS [facility] Last Admin: 06/19/16 21:29 Dose: 10 mg Saccharomyces Boulardii (Florastor) 250 mg PO BID [facility] Last Admin: 06/20/16 09:47 Dose: Not Given - Labs Labs: 06/20/16 10:20 06/20/16 10:00 PT 10.8 SECONDS (9.7-12.2) 06/18/16 17:15 INR 1.0 06/18/16 17:15 APTT 23 SECONDS (21-34) 06/18/16 17:15 - Constitutional Appears: Non-toxic, No Acute Distress - Head Exam Head Exam: ATRAUMATIC, NORMAL INSPECTION, NORMOCEPHALIC - Eye Exam Eye Exam: EOMI, Normal appearance, PERRL - ENT Exam ENT Exam: Mucous Membranes Moist - Neck Exam Neck Exam: Normal Inspection - Respiratory Exam Respiratory Exam: Clear to Ausculation Bilateral, NORMAL BREATHING PATTERN. absent: Rales, Rhonchi, Wheezes - Cardiovascular Exam Cardiovascular Exam: +S1, +S2. absent: Tachycardia - GI/Abdominal Exam GI & Abdominal Exam: Soft, Normal Bowel Sounds. absent: Firm, Guarding, Tenderness - Extremities Exam Extremities Exam: Normal Inspection. absent: Tenderness Additional comments: trace edema to bilateral lower extremities - Neurological Exam Neurological Exam: Alert, Awake. absent: Oriented x3 Additional comments: Oriented to self Left Upper Extremity: 3, Right Upper Extremity: 3, Left Lower Extremity: 2/1, Right Lower Extremity: 2/1 - Psychiatric Exam Psychiatric exam: Normal Affect, Normal Mood - Skin Additional comments: Sacral ulcer present to coccyx Assessment and Plan - Assessment and Plan (Free Text) Assessment: (1) Leukocytosis Status: Acute 06/20/16: Patient is not distended on exam today. Blood work taken 45 minutes into dialysis. WBC 7.8 down from 15.3. Patient is afebrile Will recheck CBC after dialysis. Procalcitonin ordered for tomorrow. Infection possibly urinary tract infection vs. sacral ulcer infection. 06/19/16: Likely secondary to urinary tract infection secondary to retention. Patient noted to be distended on exam Stat order placed for straight cath. Follow-up UA and culture. Procalcitonin 1.49 WBC improved from 16.8 to 15.3. Afebrile. Tylenol Q6h PRN for fevers. In the ED, patient had 2 blood cultures collected; repeat blood cultures taken during dialysis. Will follow-up. C diff. negative CXR (06/18/16)-No focal infiltrate Repeat CXR (06/19/16)-mild venous congestion. Right hilar prominence. Given Vanco 1gm IVPB X1 today, Continue on Vanco 500mg IVPB MW on dialysis days. Continue on Zosyn 2.25gm IVPB Q8h. Continue on Florastor 250mg PO BID (2) Anemia Status: Acute Comment: 06/20/16: Hemoglobin 7.2 down from 8.2. Will recheck CBC. Hgb improved from 8.0 to 8.2. MCV 102.9. RDW 19.4 tool occult neg. Retic count 4.3, Iron 38, TIBC 265, % Saturation 11, Ferritin 1350 Vit B12 >1000, folate >20.0 Compared to past records, patients Hgb is relatively stable, will continue to monitor and transfuse as needed (her prior blood work from 06/14/16 with her on the chart) Per nephrology, Dr. Mi, will start Epoetin brian 10,000 unit SC [facility] (3) Hyperkalemia Status: Acute Comment: K+ 5.9 on admission. Patient to be monitor on telemetry (4) ESRD (end stage renal disease) on dialysis Status: Chronic Hemodialysis today. Hemodialysis on [facility] Nephrology, Dr. Mi on case. (5) HTN (hypertension) Status: Chronic Patient undergoing dialysis today. Continue Norvasc 10mg PO daily will monitor for rebound hypertension given she [facility] (6) Hypercholesteremia Status: Chronic Comment: Continue Crestor 10mg PO HS. Triglycerides 225 (7) Hypercalcemia associated with chronic dialysis Status: Acute Comment: Ca- 10.7. Likely due to intermediate frame tender dialysis. Bone density survey- 02/18/16- shows patchy demineralization seen at the skull and bilateral femurs and bilateral humeri (Please see full report) Will follow-up with nephrology Monitor on telemetry (8) Seizure Status: Chronic Comment: Continue Trileptal 300mg PO BID. Seizure precautions (9) History of CVA (cerebrovascular accident) Status: Chronic Comment: Continue Plavix 75mg PO Daily. Continue Asa 81mg PO Daily, continue Crestor 10mg POqHS PT/OT eval (10) Sacral decubitus ulcer Status: Acute Stage I/II sacral ulcer 06/20: Wound care nurse to evaluate today. Wound Gram stain positive for gram negative konstantin. Pending final. Wound care nurse referral. Turn pt Q2h; will need to monitor site post- dialysis given she currently connected to the dialysis machine rule out sources for leukocytosis (11) Thrush Status: Acute Continue Nystatin 5 ml po QID (12) History of CHF (congestive heart failure) Status: Chronic Will follow-up echo for baseline EF Continue on Aspirin, Plavix, Statin, and norvasc. Monitor daily weights Intake and outputs (13) Prophylactic measure Status: Chronic Pepcid 20mg PO daily [facility] Heparin 5000U SC Q12h PT/OT <Dorie Murphy V - Last Filed: 06/21/16 18:03> Objective - Vital Signs/Intake and Output Vital Signs (last 24 hours): Temp Pulse Resp BP Pulse Ox 97.9 F 72 18 142/83 100 06/21/16 16:00 06/21/16 16:00 06/21/16 16:00 06/21/16 16:00 06/21/16 16:00 Intake and Output: 06/21/16 06/21/16 06:59 18:59 Intake Total 310 250 Balance 310 250 - Medications Medications: Current Medications Acetaminophen (Tylenol 325mg Tab) 650 mg PO Q6 PRN PRN Reason: Fever >100.4 F Aspirin (Ecotrin) 81 mg PO DAILY [facility] Last Admin: 06/21/16 09:26 Dose: 81 mg Clopidogrel Bisulfate (Plavix) 75 mg PO DAILY [facility] Last Admin: 06/21/16 09:26 Dose: 75 mg Epoetin Brian (Procrit) 10,000 unit IV MWF [facility] Last Admin: 06/20/16 12:19 Dose: 10,000 unit Famotidine (Pepcid) 20 mg PO DAILY [facility] Last Admin: 06/21/16 09:26 Dose: 20 mg Gabapentin (Neurontin) 100 mg PO TID [facility] Last Admin: 06/21/16 13:41 Dose: 100 mg Heparin Sodium (Porcine) (Heparin) 5,000 units SC Q12 [facility] Last Admin: 06/21/16 09:27 Dose: 5,000 units Piperacillin Sod/Tazobactam Sod (Zosyn 2.25 Gm Iv Premix) 50 mls @ 100 mls/hr IVPB Q8H [facility] Last Admin: 06/21/16 10:42 Dose: 100 mls/hr Vancomycin HCl 500 mg/ Sodium (Chloride) 100 mls @ 100 mls/hr IVPB MWF [facility] Last Admin: 06/20/16 17:05 Dose: 100 mls/hr Nystatin (Nystatin Oral Susp) 5 ml PO QID [facility] Last Admin: 06/21/16 13:41 Dose: 5 ml Oxcarbazepine (Trileptal) 300 mg PO BID [facility] Last Admin: 06/21/16 09:27 Dose: 300 mg Rosuvastatin Calcium (Crestor) 10 mg PO HS [facility] Last Admin: 06/20/16 21:11 Dose: 10 mg Saccharomyces Boulardii (Florastor) 250 mg PO BID [facility] Last Admin: 06/21/16 09:26 Dose: 250 mg - Labs Labs: 06/21/16 07:04 06/21/16 07:04 PT 10.8 SECONDS (9.7-12.2) 06/18/16 17:15 INR 1.0 06/18/16 17:15 APTT 23 SECONDS (21-34) 06/18/16 17:15 Attending/Attestation - Attestation I have personally seen and examined this patient.: Yes I have fully participated in the care of the patient.: Yes I have reviewed all pertinent clinical information, including history, physical exam and plan: Yes Notes (Text): This is late computer entry for 06/20/16. Patient seen, examined, and case discussed with day-time resident. Patient seen and evaluated during dialysis. Patient recalls me from yesterday and understands she is at the hospital. Sacral wound: gram negative konstantin awaiting speciation and sensitivity. Discussed with wound care nurseinder who will see the patient. Labs drawn during dialysis appeared questionable given improving white count and hypokalemia; put in for repeat blood work for today.\ Discontinued Norvasc given patient was mildly hypotensive during the day but improved after order of albumin by nephrology. Will continue IV abx given elevated procalcitonin likely secondary to sacral wound Asssessment/Plan (1) Leukocytosis Status: Acute Comment: WBC 16.8-->15.3--7.8 Tylenol Q6h PRN for fevers. In the ED, patient had 2 blood cultures collected; repeat blood cultures taken during dialysis f/u UA, Urine culture, C diff. CXR (06/19/16): left central venous catheter tip extending into the distal right atrium. No focal infiltrate or effusion. CXR (06/19/16): lines and tubes in stable position. mild venous congestion. right hilar prominence Blood cultures: negative for 24 hours X2 Given Vanco 1gm IVPB X1 on admission Started on Vanco 500mg IVPB MWF on dialysis days. Started on Zosyn 2.25gm IVPB Q8h (active since 06/18/16) started on Florastor 250mg PO BID Procalcitonin: 1.49 (bacterial) (2) Anemia Status: Chronic Comment: stool occult neg. B12 >1000 Folate: 20.0 Reticulocyte count: 4.3 low percent iron, iron:38, TIBC: 265, high ferritin, occult negative Compared to past records, patients Hgb is relatively stable, will continue to monitor and transfuse as needed (her prior blood work from 06/14/16 with her on the chart) hgb: 7.2 Procrit 10,000 unit IV MWF (3) Hyperkalemia Status: Acute Comment: Hypokalemia but drawn during her dialysis; repeat blood work order Patient to be monitor on telemetry (4) ESRD (end stage renal disease) on dialysis Status: Chronic Comment: consult nephro- Dr. Mi. HD MWF (5) HTN (hypertension) Status: Chronic Comment: Continue home meds; per review of EMR and transfer paperwork there is discrepancy in her blood pressure medications. Patient undergoing dialysis today. discontinued Norvasc 10mg PO daily will monitor for rebound hypertension given she [facility] (6) Hypercholesteremia Status: Chronic Comment: started on Crestor 10mg PO HS. T, chol: 157, LDL: 61, and HDL:49 (7) Hypercalcemia associated with chronic dialysis Status: Chronic Comment: Ca- 10.1. Likely due to intermediate frame tender dialysis. Bone density survey- 02/18/16- shows patchy demineralization seen at the skull and bilateral femurs and bilateral humeri (Please see full report) Will follow-up with nephrology Monitor on telemetry (8) Seizure Status: Chronic Comment: Continue Trileptal 300mg PO BID. Seizure precautions (9) History of CVA (cerebrovascular accident) Status: Chronic Comment: Continue Plavix 75mg PO Daily. Continue Asa 81mg PO Daily, continue Crestor 10mg POqHS PT/OT eval (10) Sacral decubitus ulcer Status: Acute Comment: Wound care nurse referral. Turn pt Q2h; will need to monitor site post -dialysis given she currently connected to the dialysis machine rule out sources for leukocytosis Sacral wound: gram negative konstantin prelim On IV antibiotics (11) History of CHF (congestive heart failure) Status: Chronic Comment: Patient started on Aspirin, Plavix, Statin, and currently on norvasc. Monitor daily weights Intake and outputs Echocardiogram (06/19/16): mild concentric left ventricular hypertrophy. left ventricle systolic function is normal EF >70% (12) Prophylactic measure Status: Chronic Comment: Pepcid 20mg PO daily. SCDs. Heparin 5000U SC Q12h PT/OT eval wound care referral
[2016-06-20] MEDS: Epoetin Alfa 10,000 unit/ml Dialysis IV SCH (12:19)
--- NOTE | 2016-06-20 16:02 | CP.PCM.PN ---
Subjective - Date & Time of Evaluation Date of Evaluation: 06/20/16 Time of Evaluation: 03:25 - Subjective Subjective: Appears more comfortable today Objective - Vital Signs/Intake and Output Vital Signs (last 24 hours): Temp Pulse Resp BP Pulse Ox 97.9 F 71 18 149/82 99 06/20/16 15:41 06/20/16 15:41 06/20/16 15:41 06/20/16 15:41 06/20/16 15:41 Intake and Output: 06/20/16 06/20/16 06:59 18:59 Intake Total 24 Balance 24 - Medications Medications: Current Medications Acetaminophen (Tylenol 325mg Tab) 650 mg PO Q6 PRN PRN Reason: Fever >100.4 F Amlodipine Besylate (Norvasc) 10 mg PO DAILY [facility] Last Admin: 06/20/16 12:12 Dose: Not Given Aspirin (Ecotrin) 81 mg PO DAILY [facility] Last Admin: 06/20/16 09:47 Dose: Not Given Clopidogrel Bisulfate (Plavix) 75 mg PO DAILY [facility] Last Admin: 06/20/16 09:48 Dose: Not Given Epoetin Nemesio (Procrit) 10,000 unit IV MWF [facility] Last Admin: 06/20/16 12:19 Dose: 10,000 unit Famotidine (Pepcid) 20 mg PO DAILY [facility] Last Admin: 06/20/16 09:48 Dose: Not Given Gabapentin (Neurontin) 100 mg PO TID [facility] Last Admin: 06/20/16 14:07 Dose: 100 mg Heparin Sodium (Porcine) (Heparin) 5,000 units SC Q12 [facility] Last Admin: 06/20/16 09:47 Dose: Not Given Piperacillin Sod/Tazobactam Sod (Zosyn 2.25 Gm Iv Premix) 50 mls @ 100 mls/hr IVPB Q8H [facility] Last Admin: 06/20/16 12:13 Dose: Not Given Vancomycin HCl 500 mg/ Sodium (Chloride) 100 mls @ 100 mls/hr IVPB MWF [facility] Last Admin: 06/20/16 10:00 Dose: Not Given Nystatin (Nystatin Oral Susp) 5 ml PO QID [facility] Last Admin: 06/20/16 14:06 Dose: 5 ml Oxcarbazepine (Trileptal) 300 mg PO BID [facility] Last Admin: 06/20/16 09:48 Dose: Not Given Rosuvastatin Calcium (Crestor) 10 mg PO [facility] Last Admin: 06/19/16 21:29 Dose: 10 mg Saccharomyces Boulardii (Florastor) 250 mg PO BID [facility] Last Admin: 06/20/16 09:47 Dose: Not Given - Labs Labs: 06/20/16 10:20 06/20/16 10:00 PT 10.8 SECONDS (9.7-12.2) 06/18/16 17:15 INR 1.0 06/18/16 17:15 APTT 23 SECONDS (21-34) 06/18/16 17:15 - Respiratory Exam Additional comments: Lungs clear - Cardiovascular Exam Cardiovascular Exam: REGULAR RHYTHM - Extremities Exam Additional comments: No edema Assessment and Plan - Assessment and Plan (Free Text) Assessment: ESRD/HDD Infected decubitus wound ( E.coli) Anemia Plan: Completed dialysis today Labs to be repeated today
[2016-06-20 19:52] LABS: POTASSIUM 3.5 mmol/L (3.6-5.2)
[2016-06-20 19:56] LABS: CALCIUM 8.9 mg/dl (8.6-10.4)
[2016-06-21] MEDS: Piperacill/Tazo 2.25gm in Dex 50 ML IVPB SCH ×2 (02:19→10:42)
[2016-06-21 07:28] LABS: BASO # 0.1 K/uL (0.0-0.2); BASO % 0.7 % (0.0-2.0); EOS # 0.2 K/uL (0.0-0.7); EOS % 2.7 % (0.0-4.0); HEMATOCRIT 23.9 % (34.0-47.0); LYMPH # 2.3 K/uL (1.0-4.3); LYMPH % 30.1 % (20.0-40.0); MEAN CELL VOLUME 101.7 fL (81.0-99.0); MEAN CORPUSCULAR HGB CONC 32.4 g/dL (33.0-37.0); MEAN PLATELET VOLUME 8.4 fL (7.2-11.7); MONO # 0.8 K/uL (0.0-0.8); MONO % 9.9 % (0.0-10.0); NRBC % 0.1 % (0.0-2.0); RED CELL DISTRIBUTION WIDTH 18.2 % (11.5-14.5); WHITE BLOOD COUNT 7.6 K/uL (4.8-10.8)
[2016-06-21 07:58] LABS: POTASSIUM 3.7 mmol/L (3.6-5.2)
[2016-06-21 08:00] LABS: ALB/GLOB RATIO 1.2 (1.0-2.1); BILIRUBIN,TOTAL 0.5 mg/dL (0.2-1.3); TOTAL PROTEIN 6.1 g/dL (6.3-8.3)
[2016-06-21 08:01] LABS: CALCIUM 9.2 mg/dl (8.6-10.4); MAGNESIUM 2.3 mg/dL (1.6-2.3)
[2016-06-21] MEDS: Saccharomyces Boulardi 250 mg Cap PO SCH ×2 (09:26→17:52)
[2016-06-21] MEDS: Nystatin 100,000 Units/ml Oral Susp 5 ml UD PO SCH ×4 (09:36→21:25)
--- NOTE | 2016-06-21 11:25 | CP.PCM.PN ---
Subjective - Date & Time of Evaluation Date of Evaluation: 06/21/16 Time of Evaluation: 11:15 - Subjective Subjective: Appears comfortable Objective - Vital Signs/Intake and Output Vital Signs (last 24 hours): Temp Pulse Resp BP Pulse Ox 98.3 F 80 20 154/81 H 97 06/21/16 08:00 06/21/16 08:00 06/21/16 08:00 06/21/16 08:00 06/21/16 08:00 Intake and Output: 06/21/16 06/21/16 06:59 18:59 Intake Total 310 Balance 310 - Medications Medications: Current Medications Acetaminophen (Tylenol 325mg Tab) 650 mg PO Q6 PRN PRN Reason: Fever >100.4 F Aspirin (Ecotrin) 81 mg PO DAILY [facility] Last Admin: 06/21/16 09:26 Dose: 81 mg Clopidogrel Bisulfate (Plavix) 75 mg PO DAILY [facility] Last Admin: 06/21/16 09:26 Dose: 75 mg Epoetin Nemesio (Procrit) 10,000 unit IV MWF [facility] Last Admin: 06/20/16 12:19 Dose: 10,000 unit Famotidine (Pepcid) 20 mg PO DAILY [facility] Last Admin: 06/21/16 09:26 Dose: 20 mg Gabapentin (Neurontin) 100 mg PO TID [facility] Last Admin: 06/21/16 09:26 Dose: 100 mg Heparin Sodium (Porcine) (Heparin) 5,000 units SC Q12 [facility] Last Admin: 06/21/16 09:27 Dose: 5,000 units Piperacillin Sod/Tazobactam Sod (Zosyn 2.25 Gm Iv Premix) 50 mls @ 100 mls/hr IVPB Q8H [facility] Last Admin: 06/21/16 10:42 Dose: 100 mls/hr Vancomycin HCl 500 mg/ Sodium (Chloride) 100 mls @ 100 mls/hr IVPB MWF [facility] Last Admin: 06/20/16 17:05 Dose: 100 mls/hr Nystatin (Nystatin Oral Susp) 5 ml PO QID [facility] Last Admin: 06/21/16 09:36 Dose: 5 ml Oxcarbazepine (Trileptal) 300 mg PO BID [facility] Last Admin: 06/21/16 09:27 Dose: 300 mg Rosuvastatin Calcium (Crestor) 10 mg PO HS [facility] Last Admin: 06/20/16 21:11 Dose: 10 mg Saccharomyces Boulardii (Florastor) 250 mg PO BID [facility] Last Admin: 06/21/16 09:26 Dose: 250 mg - Labs Labs: 06/21/16 07:04 06/21/16 07:04 PT 10.8 SECONDS (9.7-12.2) 06/18/16 17:15 INR 1.0 06/18/16 17:15 APTT 23 SECONDS (21-34) 06/18/16 17:15 - Respiratory Exam Respiratory Exam: NORMAL BREATHING PATTERN Additional comments: Lungd clear - Extremities Exam Additional comments: No edema Assessment and Plan - Assessment and Plan (Free Text) Assessment: ESRD Anemia Hb remains low. Needs transfusion Infected decubitus wound Plan: HD as ordered. Transfuse with HD
--- NOTE | 2016-06-21 12:44 | CP.PCM.PN ---
<DevonteNallely boston - Last Filed: 06/21/16 12:59> Subjective - Date & Time of Evaluation Date of Evaluation: 06/21/16 Time of Evaluation: 12:45 - Subjective Subjective: Patient seen and examined at bedside. Per nursing, no acute events overnight. Patient is emotional today and wanting to leave hospital. She is unaware that she is in hospital and only oriented to her name. She denies all symptoms, however, full review of symptoms cannot be performed due to patient status. Of note, patient sacral ulcer wound culture positive for proteus mirabilis and corynebacterium species. Objective - Vital Signs/Intake and Output Vital Signs (last 24 hours): Temp Pulse Resp BP Pulse Ox 98.3 F 80 20 154/81 H 97 06/21/16 08:00 06/21/16 08:00 06/21/16 08:00 06/21/16 08:00 06/21/16 08:00 Intake and Output: 06/21/16 06/21/16 06:59 18:59 Intake Total 310 Balance 310 - Medications Medications: Current Medications Acetaminophen (Tylenol 325mg Tab) 650 mg PO Q6 PRN PRN Reason: Fever >100.4 F Aspirin (Ecotrin) 81 mg PO DAILY [facility] Last Admin: 06/21/16 09:26 Dose: 81 mg Clopidogrel Bisulfate (Plavix) 75 mg PO DAILY [facility] Last Admin: 06/21/16 09:26 Dose: 75 mg Epoetin Brian (Procrit) 10,000 unit IV MWF [facility] Last Admin: 06/20/16 12:19 Dose: 10,000 unit Famotidine (Pepcid) 20 mg PO DAILY [facility] Last Admin: 06/21/16 09:26 Dose: 20 mg Gabapentin (Neurontin) 100 mg PO TID [facility] Last Admin: 06/21/16 09:26 Dose: 100 mg Heparin Sodium (Porcine) (Heparin) 5,000 units SC Q12 [facility] Last Admin: 06/21/16 09:27 Dose: 5,000 units Piperacillin Sod/Tazobactam Sod (Zosyn 2.25 Gm Iv Premix) 50 mls @ 100 mls/hr IVPB Q8H [facility] Last Admin: 06/21/16 10:42 Dose: 100 mls/hr Vancomycin HCl 500 mg/ Sodium (Chloride) 100 mls @ 100 mls/hr IVPB MWF [facility] Last Admin: 06/20/16 17:05 Dose: 100 mls/hr Nystatin (Nystatin Oral Susp) 5 ml PO QID [facility] Last Admin: 06/21/16 09:36 Dose: 5 ml Oxcarbazepine (Trileptal) 300 mg PO BID [facility] Last Admin: 06/21/16 09:27 Dose: 300 mg Rosuvastatin Calcium (Crestor) 10 mg PO HS [facility] Last Admin: 06/20/16 21:11 Dose: 10 mg Saccharomyces Boulardii (Florastor) 250 mg PO BID [facility] Last Admin: 06/21/16 09:26 Dose: 250 mg - Labs Labs: 06/21/16 07:04 06/21/16 07:04 PT 10.8 SECONDS (9.7-12.2) 06/18/16 17:15 INR 1.0 06/18/16 17:15 APTT 23 SECONDS (21-34) 06/18/16 17:15 - Constitutional Appears: Non-toxic, No Acute Distress - Head Exam Head Exam: ATRAUMATIC, NORMAL INSPECTION, NORMOCEPHALIC - Eye Exam Eye Exam: EOMI, Normal appearance, PERRL - ENT Exam ENT Exam: Mucous Membranes Moist - Neck Exam Neck Exam: Normal Inspection - Respiratory Exam Respiratory Exam: Clear to Ausculation Bilateral, NORMAL BREATHING PATTERN. absent: Rales, Rhonchi, Wheezes - Cardiovascular Exam Cardiovascular Exam: +S1, +S2 - GI/Abdominal Exam GI & Abdominal Exam: Soft, Normal Bowel Sounds. absent: Guarding, Rigid, Tenderness - Extremities Exam Extremities Exam: absent: Pedal Edema, Tenderness - Neurological Exam Neurological Exam: Alert, Awake. absent: Oriented x3 Additional comments: oriented to self - Psychiatric Exam Psychiatric exam: Normal Affect, Normal Mood - Skin Additional comments: sacral decubitis ulcer Assessment and Plan - Assessment and Plan (Free Text) Assessment: (1) Leukocytosis Status: Acute 06/21/16: Leukocytosis decreased to 7.6. Source of infection: sacral decubitus ulcer culture positive for Proteus Mirabilis and Corynebacterium species . Will check sensitivity to Zosyn. 06/20/16: Patient is not distended on exam today. Blood work taken 45 minutes into dialysis. WBC 7.8 down from 15.3. Patient is afebrile Will recheck CBC after dialysis. Procalcitonin ordered for tomorrow. Infection possibly urinary tract infection vs. sacral ulcer infection. 06/19/16: Likely secondary to urinary tract infection secondary to retention. Patient noted to be distended on exam Stat order placed for straight cath. Follow-up UA and culture. Procalcitonin 1.49 WBC improved from 16.8 to 15.3. Afebrile. Tylenol Q6h PRN for fevers. In the ED, patient had 2 blood cultures collected; repeat blood cultures taken during dialysis. Will follow-up. C diff. negative CXR (06/18/16)-No focal infiltrate Repeat CXR (06/19/16)-mild venous congestion. Right hilar prominence. Given Vanco 1gm IVPB X1 today, Continue on Vanco 500mg IVPB MW on dialysis days. Continue on Zosyn 2.25gm IVPB Q8h. Continue on Florastor 250mg PO BID (2) Anemia Status: Acute Comment: 06/21/16: Hemoglobin of 7.7. Plan to transfuse patient on hemodialysis tomorrow. 06/20/16: Hemoglobin 7.2 down from 8.2. Will recheck CBC. Hgb improved from 8.0 to 8.2. MCV 102.9. RDW 19.4 tool occult neg. Retic count 4.3, Iron 38, TIBC 265, % Saturation 11, Ferritin 1350 Vit B12 >1000, folate >20.0 Compared to past records, patients Hgb is relatively stable, will continue to monitor and transfuse as needed (her prior blood work from 06/14/16 with her on the chart) Per nephrology, Dr. Mi, will start Epoetin brian 10,000 unit SC [facility] (3) Hyperkalemia Status: Acute Comment: Resolved K+ 5.9 on admission. Patient to be monitor on telemetry (4) ESRD (end stage renal disease) on dialysis Status: Chronic Will transfuse patient tomorrow during hemodialysis Hemodialysis on [facility] Nephrology, Dr. Mi on case. (5) HTN (hypertension) Status: Chronic Continue Norvasc 10mg PO daily will monitor for rebound hypertension given she was being given PRN clonidine at the [facility] (6) Hypercholesteremia Status: Chronic Comment: Continue Crestor 10mg PO HS. Triglycerides 225 (7) Hypercalcemia associated with chronic dialysis Status: Acute Comment: Ca- 10.7. Likely due to snf dialysis. Bone density survey- 02/18/16- shows patchy demineralization seen at the skull and bilateral femurs and bilateral humeri (Please see full report) Will follow-up with nephrology Monitor on telemetry (8) Seizure Status: Chronic Comment: Continue Trileptal 300mg PO BID. Seizure precautions (9) History of CVA (cerebrovascular accident) Status: Chronic Comment: Continue Plavix 75mg PO Daily. Continue Asa 81mg PO Daily, continue Crestor 10mg POqHS PT/OT eval (10) Sacral decubitus ulcer Status: Acute Stage I/II sacral ulcer 06/21: Sacral decubitus ulcer culture positive for Proteus Mirabilis and Corynebacterium species . Will check sensitivity to Zosyn. 06/20: Wound care nurse to evaluate today. Wound Gram stain positive for gram negative konstantin. Pending final. Wound care nurse referral. Turn pt Q2h; will need to monitor site post- dialysis given she currently connected to the dialysis machine rule out sources for leukocytosis (11) Thrush Status: Acute Continue Nystatin 5 ml po QID (12) History of CHF (congestive heart failure) Status: Chronic Will follow-up echo for baseline EF Continue on Aspirin, Plavix, Statin, and norvasc. Monitor daily weights Intake and outputs (13) Prophylactic measure Status: Chronic Pepcid 20mg PO daily [facility] Heparin 5000U SC Q12h PT/OT <Dorie Murphy V - Last Filed: 06/21/16 18:08> Objective - Vital Signs/Intake and Output Vital Signs (last 24 hours): Temp Pulse Resp BP Pulse Ox 97.9 F 72 18 142/83 100 06/21/16 16:00 06/21/16 16:00 06/21/16 16:00 06/21/16 16:00 06/21/16 16:00 Intake and Output: 06/21/16 06/21/16 06:59 18:59 Intake Total 310 250 Balance 310 250 - Medications Medications: Current Medications Acetaminophen (Tylenol 325mg Tab) 650 mg PO Q6 PRN PRN Reason: Fever >100.4 F Aspirin (Ecotrin) 81 mg PO DAILY [facility] Last Admin: 06/21/16 09:26 Dose: 81 mg Clopidogrel Bisulfate (Plavix) 75 mg PO DAILY [facility] Last Admin: 06/21/16 09:26 Dose: 75 mg Epoetin Brian (Procrit) 10,000 unit IV MWF [facility] Last Admin: 06/20/16 12:19 Dose: 10,000 unit Famotidine (Pepcid) 20 mg PO DAILY [facility] Last Admin: 06/21/16 09:26 Dose: 20 mg Gabapentin (Neurontin) 100 mg PO TID [facility] Last Admin: 06/21/16 17:52 Dose: 100 mg Heparin Sodium (Porcine) (Heparin) 5,000 units SC Q12 [facility] Last Admin: 06/21/16 09:27 Dose: 5,000 units Piperacillin Sod/Tazobactam Sod (Zosyn 2.25 Gm Iv Premix) 50 mls @ 100 mls/hr IVPB Q8H [facility] Last Admin: 06/21/16 10:42 Dose: 100 mls/hr Vancomycin HCl 500 mg/ Sodium (Chloride) 100 mls @ 100 mls/hr IVPB MWF [facility] Last Admin: 06/20/16 17:05 Dose: 100 mls/hr Nystatin (Nystatin Oral Susp) 5 ml PO QID [facility] Last Admin: 06/21/16 17:53 Dose: 5 ml Oxcarbazepine (Trileptal) 300 mg PO BID [facility] Last Admin: 06/21/16 17:53 Dose: 300 mg Rosuvastatin Calcium (Crestor) 10 mg PO HS [facility] Last Admin: 06/20/16 21:11 Dose: 10 mg Saccharomyces Boulardii (Florastor) 250 mg PO BID [facility] Last Admin: 06/21/16 17:52 Dose: 250 mg - Labs Labs: 06/21/16 07:04 06/21/16 07:04 PT 10.8 SECONDS (9.7-12.2) 06/18/16 17:15 INR 1.0 06/18/16 17:15 APTT 23 SECONDS (21-34) 06/18/16 17:15 Attending/Attestation - Attestation I have personally seen and examined this patient.: Yes I have fully participated in the care of the patient.: Yes I have reviewed all pertinent clinical information, including history, physical exam and plan: Yes Notes (Text): Patient seen, examined, and case discussed with day-time resident. Patient seen and evaluated. Patient remembers me but not well. Patient upset she is still in the hospital. Explained that she is likely sick from her sacral infection which is why she is here. Sacral wound finalized; Klbsiella and Corneybacterium-->sensitive to everything ; will change to Ciprofloxcin given better JULIETA Will continue IV abx given elevated procalcitonin likely secondary to sacral wound Patient to be transfused one 1 unit of PRBC during dialysis tomorrow. Asssessment/Plan (1) Leukocytosis Status: Acute Comment: WBC 16.8-->15.3--7.8-->7.2 Tylenol Q6h PRN for fevers. In the ED, patient had 2 blood cultures collected; repeat blood cultures taken during dialysis f/u UA, Urine culture, C diff. CXR (06/19/16): left central venous catheter tip extending into the distal right atrium. No focal infiltrate or effusion. CXR (06/19/16): lines and tubes in stable position. mild venous congestion. right hilar prominence Blood cultures: negative for 48 hours X2 Given Vanco 1gm IVPB X1 on admission Started on Vanco 500mg IVPB MWF on dialysis days. Started on Zosyn 2.25gm IVPB Q8h (active since 06/18/16) started on Florastor 250mg PO BID Procalcitonin: 1.49 (bacterial)-->1.85 (2) Anemia Status: Chronic Comment: stool occult neg. B12 >1000 Folate: 20.0 Reticulocyte count: 4.3 low percent iron, iron:38, TIBC: 265, high ferritin, occult negative Compared to past records, patients Hgb is relatively stable, will continue to monitor and transfuse as needed (her prior blood work from 06/14/16 with her on the chart) hgb: 7.7 Procrit 10,000 unit IV MWF Will transfuse 1 unit of PRBC during dialysis tomorrow (3) Hyperkalemia Status: Acute Comment: normalized Patient to be monitor on telemetry (4) ESRD (end stage renal disease) on dialysis Status: Chronic Comment: consult nephro- Dr. Mi. HD MWF (5) HTN (hypertension) Status: Chronic Comment: Continue home meds; per review of EMR and transfer paperwork there is discrepancy in her blood pressure medications. Patient undergoing dialysis today. discontinued Norvasc 10mg PO daily will monitor for rebound hypertension given she was being given PRN clonidine at the [facility] (6) Hypercholesteremia Status: Chronic Comment: started on Crestor 10mg PO HS. T, chol: 157, LDL: 61, and HDL:49 (7) Hypercalcemia associated with chronic dialysis Status: Chronic Comment: Ca- 9.2. Likely due to snf dialysis. Bone density survey- 02/18/16- shows patchy demineralization seen at the skull and bilateral femurs and bilateral humeri (Please see full report) Will follow-up with nephrology Monitor on telemetry (8) Seizure Status: Chronic Comment: Continue Trileptal 300mg PO BID. Seizure precautions (9) History of CVA (cerebrovascular accident) Status: Chronic Comment: Continue Plavix 75mg PO Daily. Continue Asa 81mg PO Daily, continue Crestor 10mg POqHS PT/OT eval (10) Sacral decubitus ulcer Status: Acute Comment: Wound care nurse referral. Turn pt Q2h; will need to monitor site post -dialysis given she currently connected to the dialysis machine rule out sources for leukocytosis Sacral wound: gram negative konstantin prelim On IV antibiotics (11) History of CHF (congestive heart failure) Status: Chronic Comment: Patient started on Aspirin, Plavix, Statin, and currently on norvasc. Monitor daily weights Intake and outputs Echocardiogram (06/19/16): mild concentric left ventricular hypertrophy. left ventricle systolic function is normal EF >70% (12) Prophylactic measure Status: Chronic Comment: Pepcid 20mg PO daily. SCDs. Heparin 5000U SC Q12h PT/OT eval wound care referral
[2016-06-21] MEDS: Ciprofloxacin 400mg/200ml D5W 200 ML IVPB SCH (19:13)
[2016-06-22 07:27] LABS: BASO # 0.1 K/uL (0.0-0.2); BASO % 1.1 % (0.0-2.0); EOS # 0.2 K/uL (0.0-0.7); EOS % 2.9 % (0.0-4.0); HEMATOCRIT 23.1 % (34.0-47.0); LYMPH # 1.7 K/uL (1.0-4.3); LYMPH % 21.9 % (20.0-40.0); MEAN CELL VOLUME 101.2 fL (81.0-99.0); MEAN CORPUSCULAR HEMOGLOBIN 33.7 pg (27.0-31.0); MEAN CORPUSCULAR HGB CONC 33.3 g/dL (33.0-37.0); MEAN PLATELET VOLUME 8.5 fL (7.2-11.7); MONO # 0.6 K/uL (0.0-0.8); RED CELL DISTRIBUTION WIDTH 17.9 % (11.5-14.5)
[2016-06-22 07:56] LABS: POTASSIUM 4.1 mmol/L (3.6-5.2)
[2016-06-22 07:58] LABS: BILIRUBIN,TOTAL 0.5 mg/dL (0.2-1.3)
[2016-06-22 07:59] LABS: MAGNESIUM 2.3 mg/dL (1.6-2.3); TOTAL PROTEIN 6.2 g/dL (6.3-8.3)
[2016-06-22 08:11] LABS: ALB/GLOB RATIO 1.3 (1.0-2.1)
[2016-06-22] MEDS: Saccharomyces Boulardi 250 mg Cap PO SCH ×3 (09:07→19:00)
[2016-06-22] MEDS: Nystatin 100,000 Units/ml Oral Susp 5 ml UD PO SCH ×5 (09:08→22:08)
--- NOTE | 2016-06-22 11:37 | CP.PCM.PN ---
Subjective - Date & Time of Evaluation Date of Evaluation: 06/22/16 Time of Evaluation: 10:40 - Subjective Subjective: Appears comfortable in bed Objective - Vital Signs/Intake and Output Vital Signs (last 24 hours): Temp Pulse Resp BP Pulse Ox 97.6 F 78 20 138/80 97 06/22/16 07:00 06/22/16 07:00 06/22/16 07:00 06/22/16 07:00 06/22/16 07:00 Intake and Output: 06/22/16 06/22/16 06:59 18:59 Intake Total 750 Balance 750 - Medications Medications: Current Medications Acetaminophen (Tylenol 325mg Tab) 650 mg PO Q6 PRN PRN Reason: Fever >100.4 F Aspirin (Ecotrin) 81 mg PO DAILY [facility] Last Admin: 06/22/16 09:07 Dose: 81 mg Clopidogrel Bisulfate (Plavix) 75 mg PO DAILY [facility] Last Admin: 06/22/16 09:07 Dose: 75 mg Epoetin Nemesio (Procrit) 10,000 unit IV MWF [facility] Last Admin: 06/20/16 12:19 Dose: 10,000 unit Famotidine (Pepcid) 20 mg PO DAILY [facility] Last Admin: 06/22/16 09:07 Dose: 20 mg Gabapentin (Neurontin) 100 mg PO TID [facility] Last Admin: 06/22/16 09:07 Dose: 100 mg Heparin Sodium (Porcine) (Heparin) 5,000 units SC Q12 [facility] Last Admin: 06/22/16 09:07 Dose: 5,000 units Ciprofloxacin (Cipro 400mg/200ml Dsw) 200 mls @ 133 mls/hr IVPB Q24H [facility] Last Admin: 06/21/16 19:13 Dose: 133 mls/hr Nystatin (Nystatin Oral Susp) 5 ml PO QID [facility] Last Admin: 06/22/16 09:08 Dose: 5 ml Oxcarbazepine (Trileptal) 300 mg PO BID [facility] Last Admin: 06/22/16 10:52 Dose: 300 mg Rosuvastatin Calcium (Crestor) 10 mg PO HS [facility] Last Admin: 06/21/16 21:24 Dose: 10 mg Saccharomyces Boulardii (Florastor) 250 mg PO BID [facility] Last Admin: 06/22/16 09:07 Dose: 250 mg - Labs Labs: 06/22/16 07:00 06/22/16 07:00 PT 10.8 SECONDS (9.7-12.2) 06/18/16 17:15 INR 1.0 06/18/16 17:15 APTT 23 SECONDS (21-34) 06/18/16 17:15 - Respiratory Exam Additional comments: Lungs clear - Cardiovascular Exam Cardiovascular Exam: REGULAR RHYTHM - Extremities Exam Additional comments: No edema Assessment and Plan - Assessment and Plan (Free Text) Assessment: ESRD on HD Anemia for transfusion with HD HTN Infected decubitus ulcer Plan: Continue HD per schedule Increase UF goal Monitor Hb
--- NOTE | 2016-06-22 16:24 | CP.PCM.PN ---
<Joy Denney - Last Filed: 06/22/16 16:21> Subjective - Date & Time of Evaluation Date of Evaluation: 06/22/16 Time of Evaluation: 07:50 - Subjective Subjective: Internal medicine progress note for Hospitalist service- Joy Denney, PGY-1 Pt S & E at bedside. Pt w/o complaints overnight. Per nursing- pt with verbalizations at night, possibly . Denies N/V/F/C, SOB, CP, abdominal pain. For HD today. Objective - Vital Signs/Intake and Output Vital Signs (last 24 hours): Temp Pulse Resp BP Pulse Ox 97.8 F 69 18 128/75 98 06/22/16 15:39 06/22/16 15:39 06/22/16 15:39 06/22/16 15:45 06/22/16 14:15 Intake and Output: 06/22/16 06/22/16 06:59 18:59 Intake Total 750 350 Balance 750 350 - Medications Medications: Current Medications Acetaminophen (Tylenol 325mg Tab) 650 mg PO Q6 PRN PRN Reason: Fever >100.4 F Albumin Human (Albumin Human 25% (12.5 Gm/50 Ml)) 12.5 gm IV MWF [facility] Aspirin (Ecotrin) 81 mg PO DAILY [facility] Last Admin: 06/22/16 09:07 Dose: 81 mg Clopidogrel Bisulfate (Plavix) 75 mg PO DAILY [facility] Last Admin: 06/22/16 09:07 Dose: 75 mg Epoetin Nemesio (Procrit) 10,000 unit IV MWF [facility] Last Admin: 06/20/16 12:19 Dose: 10,000 unit Famotidine (Pepcid) 20 mg PO DAILY [facility] Last Admin: 06/22/16 09:07 Dose: 20 mg Gabapentin (Neurontin) 100 mg PO TID [facility] Last Admin: 06/22/16 13:25 Dose: 100 mg Heparin Sodium (Porcine) (Heparin) 5,000 units SC Q12 [facility] Last Admin: 06/22/16 09:07 Dose: 5,000 units Ciprofloxacin (Cipro 400mg/200ml Dsw) 200 mls @ 133 mls/hr IVPB Q24H [facility] Last Admin: 06/21/16 19:13 Dose: 133 mls/hr Nystatin (Nystatin Oral Susp) 5 ml PO QID [facility] Last Admin: 06/22/16 13:25 Dose: 5 ml Oxcarbazepine (Trileptal) 300 mg PO BID [facility] Last Admin: 06/22/16 10:52 Dose: 300 mg Rosuvastatin Calcium (Crestor) 10 mg PO HS [facility] Last Admin: 06/21/16 21:24 Dose: 10 mg Saccharomyces Boulardii (Florastor) 250 mg PO BID [facility] Last Admin: 06/22/16 09:07 Dose: 250 mg - Labs Labs: 06/22/16 07:00 06/22/16 07:00 PT 10.8 SECONDS (9.7-12.2) 06/18/16 17:15 INR 1.0 06/18/16 17:15 APTT 23 SECONDS (21-34) 06/18/16 17:15 - Constitutional Appears: Non-toxic, No Acute Distress - Head Exam Head Exam: ATRAUMATIC, NORMAL INSPECTION, NORMOCEPHALIC - Eye Exam Eye Exam: EOMI, Normal appearance, PERRL Pupil Exam: NORMAL ACCOMODATION, PERRL - ENT Exam ENT Exam: Mucous Membranes Moist, Normal Exam - Neck Exam Neck Exam: Full ROM, Normal Inspection - Respiratory Exam Respiratory Exam: Clear to Ausculation Bilateral, NORMAL BREATHING PATTERN. absent: Rales, Rhonchi, Wheezes, Respiratory Distress, Stridor - Cardiovascular Exam Cardiovascular Exam: REGULAR RHYTHM, +S1, +S2 - GI/Abdominal Exam GI & Abdominal Exam: Soft, Normal Bowel Sounds. absent: Distended, Firm, Guarding, Rigid, Tenderness - Extremities Exam Extremities Exam: Pedal Edema (slight B/L). absent: Full ROM, Normal Inspection (pt w/contracture of left hand) - Neurological Exam Neurological Exam: Alert, Awake. absent: Oriented x3 (AOx 1 (self)) - Psychiatric Exam Psychiatric exam: Normal Affect, Normal Mood - Skin Skin Exam: Dry, Intact, Normal Color, Warm Assessment and Plan - Assessment and Plan (Free Text) Assessment: Leukocytosis - resolved No leukocytosis Afebrile over 24H Wound care recs as per wound care nursing: Optiform and medihoney daily to sacral DU Sacral wound pos for Proteus Mirabilis and Corynebacterium species Tylenol Q6h PRN fevers. C diff. negative Cont cipro Vanc d/c'd Cont Florastor 250mg PO BID Anemia Hgb 7.7 Given 1 unit pRBcs during dialysis today Adam FU CBC in AM ESRD (end stage renal disease) on dialysis HD MWF Nephrology, Dr. Mi following HTN (hypertension) Continue Norvasc 10mg PO daily Hypercholesteremia Continue Crestor 10mg PO HS. Triglycerides 225 Hypercalcemia associated with chronic dialysis- resolved Ca 9 Bone density survey- 02/18/16- shows patchy demineralization seen at the skull and bilateral femurs and bilateral humeri (Please see full report) Monitor on telemetry Seizure d/o Continue Trileptal 300mg PO BID. Seizure precautions Hx CVA (cerebrovascular accident) Continue Plavix 75mg PO Daily. Continue Asa 81mg PO Daily, continue Crestor 10mg POqHS PT/OT eval Sacral decubitus ulcer Stage I/II sacral ulcer Wound care as per wound care nursing recs- medihoney daily with optiform Thrush Continue Nystatin 5 ml po QID History of CHF (congestive heart failure) Will follow-up echo for baseline EF Continue on Aspirin, Plavix, Statin, and norvasc. Monitor daily weights Intake and outputs Prophylactic measure Pepcid 20mg PO daily SCDs Heparin 5000U SC Q12h PT/OT Dispo Transfer pt to LTAC tomorrow after CBC DW attending <Dorie Murphy V - Last Filed: 06/22/16 20:46> Objective - Vital Signs/Intake and Output Vital Signs (last 24 hours): Temp Pulse Resp BP Pulse Ox 97.9 F 72 18 120/81 98 06/22/16 17:15 06/22/16 17:15 06/22/16 17:15 06/22/16 17:15 06/22/16 17:15 Intake and Output: 06/22/16 06/23/16 18:59 06:59 Intake Total 725 Balance 725 - Medications Medications: Current Medications Acetaminophen (Tylenol 325mg Tab) 650 mg PO Q6 PRN PRN Reason: Fever >100.4 F Albumin Human (Albumin Human 25% (12.5 Gm/50 Ml)) 12.5 gm [place] [facility] [place]irin (Ecotrin) 81 mg PO DAILY [facility] Last Admin: 06/22/16 09:07 Dose: 81 mg Clopidogrel Bisulfate (Plavix) 75 mg PO DAILY [facility] Last Admin: 06/22/16 09:07 Dose: 75 mg Epoetin Nemesio (Procrit) 10,000 unit IV MWF [facility] Last Admin: 06/22/16 16:30 Dose: 10,000 unit Famotidine (Pepcid) 20 mg PO DAILY [facility] Last Admin: 06/22/16 09:07 Dose: 20 mg Gabapentin (Neurontin) 100 mg PO TID [facility] Last Admin: 06/22/16 18:42 Dose: 100 mg Heparin Sodium (Porcine) (Heparin) 5,000 units SC Q12 [facility] Last Admin: 06/22/16 09:07 Dose: 5,000 units Ciprofloxacin (Cipro 400mg/200ml Dsw) 200 mls @ 133 mls/hr IVPB Q24H [facility] Last Admin: 06/22/16 18:40 Dose: 133 mls/hr Nystatin (Nystatin Oral Susp) 5 ml PO QID [facility] Last Admin: 06/22/16 18:42 Dose: 5 ml Oxcarbazepine (Trileptal) 300 mg PO BID [facility] Last Admin: 06/22/16 18:43 Dose: 300 mg Rosuvastatin Calcium (Crestor) 10 mg PO HS [facility] Last Admin: 06/21/16 21:24 Dose: 10 mg Saccharomyces Boulardii (Florastor) 250 mg PO BID [facility] Last Admin: 06/22/16 18:42 Dose: 250 mg - Labs Labs: 06/22/16 07:00 06/22/16 07:00 PT 10.8 SECONDS (9.7-12.2) 06/18/16 17:15 INR 1.0 06/18/16 17:15 APTT 23 SECONDS (21-34) 06/18/16 17:15 Attending/Attestation - Attestation I have personally seen and examined this patient.: Yes I have fully participated in the care of the patient.: Yes I have reviewed all pertinent clinical information, including history, physical exam and plan: Yes Notes (Text): Patient seen, examined, and case discussed with day-time resident. Patient seen and evaluated. Patient remembers me. Patient upset she is still in the hospital. Explained that she is likely sick from her sacral infection which is why she is here. Sacral wound finalized; Klbsiella and Corneybacterium-->sensitive to everything ; Patient is currently on IV Ciprofloxocin. Repeat procalcitonin tomorrow Transfused one 1 unit of PRBC during dialysis via administrative consent; unable to reach family inspite of multiple attempts throughout the day; hgb: 7.7 (prior has been high as 10; in light of cardiac hx) Asssessment/Plan (1) Leukocytosis Status: Acute Comment: WBC 16.8-->15.3--7.8-->7.2--> 8.0 Tylenol Q6h PRN for fevers. In the ED, patient had 2 blood cultures collected; repeat blood cultures taken during dialysis f/u UA, Urine culture, C diff. CXR (06/19/16): left central venous catheter tip extending into the distal right atrium. No focal infiltrate or effusion. CXR (06/19/16): lines and tubes in stable position. mild venous congestion. right hilar prominence Blood cultures: negative for 3 days; 4 days Given Vanco 1gm IVPB X1 on admission discontinue Vanco 500mg IVPB MWF on dialysis days. Started Ciprofloxcin 400mg IV qdaily (active since 06/21/16) started on Florastor 250mg PO BID Procalcitonin: 1.49 (bacterial)-->1.85 (2) Anemia Status: Chronic Comment: stool occult neg. B12 >1000 Folate: 20.0 Reticulocyte count: 4.3 low percent iron, iron:38, TIBC: 265, high ferritin, occult negative hgb: 7.7 Procrit 10,000 unit IV MWF Transfused 1 unit of PRBC today via administrative consent (3) Hyperkalemia Status: Acute Comment: normalized Patient to be monitor on telemetry (4) ESRD (end stage renal disease) on dialysis Status: Chronic Comment: consult nephro- Dr. Mi. HD MWF (5) HTN (hypertension) Status: Chronic Comment: Continue home meds; per review of EMR and transfer paperwork there is discrepancy in her blood pressure medications. Patient undergoing dialysis today. discontinued Norvasc 10mg PO daily will monitor for rebound hypertension given she was being given PRN clonidine at the senior living (6) Hypercholesteremia Status: Chronic Comment: started on Crestor 10mg PO HS. T, chol: 157, LDL: 61, and HDL:49 (7) Hypercalcemia associated with chronic dialysis Status: Chronic Comment: Ca- 9.2. Likely due to termite helper dialysis. Bone density survey- 02/18/16- shows patchy demineralization seen at the skull and bilateral femurs and bilateral humeri (Please see full report) Will follow-up with nephrology Monitor on telemetry (8) Seizure Status: Chronic Comment: Continue Trileptal 300mg PO BID. Seizure precautions (9) History of CVA (cerebrovascular accident) Status: Chronic Comment: Continue Plavix 75mg PO Daily. Continue Asa 81mg PO Daily, continue Crestor 10mg POqHS PT/OT eval (10) Sacral decubitus ulcer Status: Acute Comment: Wound care nurse referral. Turn pt Q2h; will need to monitor site post -dialysis given she currently connected to the dialysis machine rule out sources for leukocytosis Sacral wound finalized; Kelbsiella and Corneybacterium--->Ciprofloxcin 400mg IV qdaily (active since 06/21/16) On IV antibiotics (11) History of CHF (congestive heart failure) Status: Chronic Comment: Patient started on Aspirin, Plavix, Statin, off norvasc given hypotension Monitor daily weights Intake and outputs Echocardiogram (06/19/16): mild concentric left ventricular hypertrophy. left ventricle systolic function is normal EF >70% (12) Prophylactic measure Status: Chronic Comment: Pepcid 20mg PO daily. SCDs. Heparin 5000U SC Q12h PT/OT eval wound care referral 06/22/16 20:44 06/22/16 20:45
[2016-06-22] MEDS: Epoetin Alfa 10,000 unit/ml Dialysis IV SCH (16:30)
[2016-06-22] MEDS: Ciprofloxacin 400mg/200ml D5W 200 ML IVPB SCH ×2 (18:40→19:00)
[2016-06-23 00:59] VITALS: RESP 20
[2016-06-23 02:40] LABS: TOTAL PROTEIN, SERUM 5.8 g/dL (6.1-8.1)
[2016-06-23 06:37] LABS: BASO # 0.1 K/uL (0.0-0.2); BASO % 1.3 % (0.0-2.0); EOS # 0.2 K/uL (0.0-0.7); EOS % 2.7 % (0.0-4.0); HEMATOCRIT 27.8 % (34.0-47.0); LYMPH # 2.5 K/uL (1.0-4.3); MEAN CELL VOLUME 97.8 fL (81.0-99.0); MEAN CORPUSCULAR HEMOGLOBIN 32.5 pg (27.0-31.0); MEAN CORPUSCULAR HGB CONC 33.2 g/dL (33.0-37.0); MEAN PLATELET VOLUME 8.5 fL (7.2-11.7); MONO # 0.9 K/uL (0.0-0.8); MONO % 10.5 % (0.0-10.0); RED CELL DISTRIBUTION WIDTH 20.5 % (11.5-14.5); WHITE BLOOD COUNT 8.7 K/uL (4.8-10.8)
[2016-06-23 06:59] LABS: POTASSIUM 4.2 mmol/L (3.6-5.2)
[2016-06-23 07:01] LABS: ALB/GLOB RATIO 1.2 (1.0-2.1); TOTAL PROTEIN 6.7 g/dL (6.3-8.3)
[2016-06-23 07:02] LABS: CALCIUM 8.8 mg/dl (8.6-10.4); MAGNESIUM 2.1 mg/dL (1.6-2.3)
[2016-06-23] MEDS: Saccharomyces Boulardi 250 mg Cap PO SCH ×2 (10:19→18:17)
[2016-06-23] MEDS: Nystatin 100,000 Units/ml Oral Susp 5 ml UD PO SCH ×3 (10:20→18:18)
--- NOTE | 2016-06-23 11:32 | CP.PCM.PN ---
<Joy Denney - Last Filed: 06/23/16 11:25> Subjective - Date & Time of Evaluation Date of Evaluation: 06/23/16 Time of Evaluation: 07:00 - Subjective Subjective: Internal medicine progress note for Hospitalist service- Joy Denney, PGY-1 Pt S & E at bedside. Pt w/o complaints overnight. Denies N/V/F/C, SOB, CP, abdominal pain. Had HD yesterday w/1 unit pRBcs transfused. Objective - Vital Signs/Intake and Output Vital Signs (last 24 hours): Temp Pulse Resp BP Pulse Ox 98.5 F 72 20 148/83 97 06/23/16 08:46 06/23/16 08:46 06/23/16 08:46 06/23/16 08:46 06/23/16 08:46 Intake and Output: 06/23/16 06/23/16 06:59 18:59 Intake Total 0 Output Total 1 Balance -1 - Medications Medications: Current Medications Acetaminophen (Tylenol 325mg Tab) 650 mg PO Q6 PRN PRN Reason: Fever >100.4 F Albumin Human (Albumin Human 25% (12.5 Gm/50 Ml)) 12.5 gm IV MWF [facility] Aspirin (Ecotrin) 81 mg PO DAILY [facility] Last Admin: 06/23/16 10:18 Dose: 81 mg Clopidogrel Bisulfate (Plavix) 75 mg PO DAILY [facility] Last Admin: 06/23/16 10:18 Dose: 75 mg Epoetin Nemesio (Procrit) 10,000 unit IV MWF [facility] Last Admin: 06/22/16 16:30 Dose: 10,000 unit Famotidine (Pepcid) 20 mg PO DAILY [facility] Last Admin: 06/23/16 10:18 Dose: 20 mg Gabapentin (Neurontin) 100 mg PO TID [facility] Last Admin: 06/23/16 10:18 Dose: 100 mg Heparin Sodium (Porcine) (Heparin) 5,000 units SC Q12 [facility] Last Admin: 06/23/16 10:18 Dose: 5,000 units Ciprofloxacin (Cipro 400mg/200ml Dsw) 200 mls @ 133 mls/hr IVPB Q24H [facility] Last Admin: 06/22/16 19:00 Dose: Not Given Nystatin (Nystatin Oral Susp) 5 ml PO QID [facility] Last Admin: 06/23/16 10:20 Dose: 5 ml Oxcarbazepine (Trileptal) 300 mg PO BID [facility] Last Admin: 06/23/16 10:19 Dose: 300 mg Rosuvastatin Calcium (Crestor) 10 mg PO HS [facility] Last Admin: 06/22/16 22:08 Dose: 10 mg Saccharomyces Boulardii (Florastor) 250 mg PO BID [facility] Last Admin: 06/23/16 10:19 Dose: 250 mg - Labs Labs: 06/23/16 06:28 06/23/16 06:28 PT 10.8 SECONDS (9.7-12.2) 06/18/16 17:15 INR 1.0 06/18/16 17:15 APTT 23 SECONDS (21-34) 06/18/16 17:15 - Constitutional Appears: Non-toxic, No Acute Distress - Head Exam Head Exam: ATRAUMATIC, NORMAL INSPECTION, NORMOCEPHALIC - Eye Exam Eye Exam: EOMI, Normal appearance, PERRL Pupil Exam: NORMAL ACCOMODATION, PERRL - ENT Exam ENT Exam: Mucous Membranes Moist, Normal Exam - Neck Exam Neck Exam: Full ROM, Normal Inspection - Respiratory Exam Respiratory Exam: Clear to Ausculation Bilateral, NORMAL BREATHING PATTERN - Cardiovascular Exam Cardiovascular Exam: REGULAR RHYTHM, +S1, +S2 - GI/Abdominal Exam GI & Abdominal Exam: Soft, Normal Bowel Sounds. absent: Tenderness - Extremities Exam Extremities Exam: absent: Full ROM (decreased ROM), Normal Inspection (B/L hands are contracted), Pedal Edema, Tenderness - Neurological Exam Neurological Exam: Alert, Awake. absent: Oriented x3 (only oriented to self) - Psychiatric Exam Psychiatric exam: Normal Affect, Normal Mood - Skin Skin Exam: Dry, Intact, Normal Color, Warm Assessment and Plan - Assessment and Plan (Free Text) Assessment: Leukocytosis - resolved No leukocytosis Afebrile over 24H Wound care recs as per wound care nursing: Optiform and medihoney daily to sacral DU Sacral wound pos for Proteus Mirabilis and Corynebacterium species Tylenol Q6h PRN fevers. C diff. negative Cont cipro Cont Florastor 250mg PO BID Anemia- resolving Hgb 9.2 from 7.7 s/p 1 unit pRBcs during HD on 06/22 ESRD (end stage renal disease) on dialysis HD MWF Nephrology, Dr. Mi following HTN (hypertension) Continue Norvasc 10mg PO daily Hypercholesteremia Continue Crestor 10mg PO HS. Triglycerides 225 Hypercalcemia associated with chronic dialysis- resolved Ca 8.8 Bone density survey- 02/18/16- shows patchy demineralization seen at the skull and bilateral femurs and bilateral humeri (Please see full report) Monitor on telemetry Seizure d/o Continue Trileptal 300mg PO BID. Seizure precautions Hx CVA (cerebrovascular accident) Continue Plavix 75mg PO Daily. Continue Asa 81mg PO Daily, continue Crestor 10mg POqHS PT/OT eval Sacral decubitus ulcer Stage I/II sacral ulcer Wound care as per wound care nursing recs- medihoney daily with optifoam dressing Continue Nystatin 5 ml po QID History of CHF (congestive heart failure) Echo w/findings of EF >70%, mild concentric LVH, LV systolic function normal Continue on Aspirin, Plavix, Statin, and norvasc. Monitor daily weights Intake and outputs Prophylactic measure Pepcid 20mg PO daily SCDs Heparin 5000U SC Q12h PT/OT Dispo SW eval for discharge planning back to LTAC Per SW - pt needs ins auth prior to transfer back - closed on weekends WIll follow until pt can be transferred back on Saturday DW attending <Dorie Murphy V - Last Filed: 06/23/16 15:22> Objective - Vital Signs/Intake and Output Vital Signs (last 24 hours): Temp Pulse Resp BP Pulse Ox 98.5 F 72 20 148/83 97 06/23/16 08:46 06/23/16 08:46 06/23/16 08:46 06/23/16 08:46 06/23/16 08:46 Intake and Output: 06/23/16 06/23/16 06:59 18:59 Intake Total 0 480 Output Total 1 Balance -1 480 - Medications Medications: Current Medications Acetaminophen (Tylenol 325mg Tab) 650 mg PO Q6 PRN PRN Reason: Fever >100.4 F Albumin Human (Albumin Human 25% (12.5 Gm/50 Ml)) 12.5 gm IV MWF [facility] Aspirin (Ecotrin) 81 mg PO DAILY [facility] Last Admin: 06/23/16 10:18 Dose: 81 mg Ciprofloxacin (Cipro) 500 mg PO DAILY [facility] Stop: 07/04/16 10:01 Clopidogrel Bisulfate (Plavix) 75 mg PO DAILY [facility] Last Admin: 06/23/16 10:18 Dose: 75 mg Epoetin Nemesio (Procrit) 10,000 unit IV MWF [facility] Last Admin: 06/22/16 16:30 Dose: 10,000 unit Famotidine (Pepcid) 20 mg PO DAILY [facility] Last Admin: 06/23/16 10:18 Dose: 20 mg Gabapentin (Neurontin) 100 mg PO TID [facility] Last Admin: 06/23/16 13:14 Dose: 100 mg Heparin Sodium (Porcine) (Heparin) 5,000 units SC Q12 [facility] Last Admin: 06/23/16 10:18 Dose: 5,000 units Nystatin (Nystatin Oral Susp) 5 ml PO QID [facility] Last Admin: 06/23/16 13:15 Dose: 5 ml Oxcarbazepine (Trileptal) 300 mg PO BID [facility] Last Admin: 06/23/16 10:19 Dose: 300 mg Rosuvastatin Calcium (Crestor) 10 mg PO HS [facility] Last Admin: 06/22/16 22:08 Dose: 10 mg Saccharomyces Boulardii (Florastor) 250 mg PO BID [facility] Last Admin: 06/23/16 10:19 Dose: 250 mg - Labs Labs: 06/23/16 06:28 06/23/16 06:28 PT 10.8 SECONDS (9.7-12.2) 06/18/16 17:15 INR 1.0 06/18/16 17:15 APTT 23 SECONDS (21-34) 06/18/16 17:15 Attending/Attestation - Attestation I have personally seen and examined this patient.: Yes I have fully participated in the care of the patient.: Yes I have reviewed all pertinent clinical information, including history, physical exam and plan: Yes Notes (Text): Patient seen, examined, and case discussed with day-time resident. Patient seen and evaluated. Patient remembers me. Oriented to self. Appears at baseline. Patient is afebrile, normalized leukocytosis, and hemoglobin improved to 9.2 following 1 unit of PRBC during dialysis. Patient to complete 10 day course of Ciprofloxcin 500mg PO daily for sacral wound and advocated for aggresive local wound care and to have local wound care upon discharge. Asssessment/Plan (1) Leukocytosis Status: Acute Comment: WBC 16.8-->15.3--7.8-->7.2--> 8.0-->8.7 Tylenol Q6h PRN for fevers. In the ED, patient had 2 blood cultures collected; repeat blood cultures taken during dialysis CXR (06/19/16): left central venous catheter tip extending into the distal right atrium. No focal infiltrate or effusion. CXR (06/19/16): lines and tubes in stable position. mild venous congestion. right hilar prominence Blood cultures: negative for 4 days X2 Given Vanco 1gm IVPB X1 on admission discontinue Vanco 500mg IVPB MWF on dialysis days. Started Ciprofloxcin 400mg IV qdaily (active since 06/21/16)-->switched to Ciprofloxcin 500mg PO daily for ten days started on Florastor 250mg PO BID (2) Anemia Status: Chronic Comment: stool occult neg. B12 >1000 Folate: 20.0 Reticulocyte count: 4.3 low percent iron, iron:38, TIBC: 265, high ferritin, occult negative hgb: 9.2 Procrit 10,000 unit IV MWF Transfused 1 unit of PRBC 06/23 via administrative consent Will need outpatient colonoscopy upon completing abx for infected sacral wound (3) Hyperkalemia Status: Acute Comment: normalized Patient to be monitor on telemetry (4) ESRD (end stage renal disease) on dialysis Status: Chronic Comment: consult nephro- Dr. Mi. HD MWF (5) HTN (hypertension) Status: Chronic Comment: Continue home meds; per review of EMR and transfer paperwork there is discrepancy in her blood pressure medications. Patient undergoing dialysis today. discontinued Norvasc 10mg PO daily will monitor for rebound hypertension given she was being given PRN clonidine at the intermediate (6) Hypercholesteremia Status: Chronic Comment: started on Crestor 10mg PO HS. T, chol: 157, LDL: 61, and HDL:49 (7) Hypercalcemia associated with chronic dialysis Status: Chronic Comment: Ca- 9.2. Likely due to intermediate manager dialysis. Bone density survey- 02/18/16- shows patchy demineralization seen at the skull and bilateral femurs and bilateral humeri (Please see full report) Will follow-up with nephrology Monitor on telemetry (8) Seizure Status: Chronic Comment: Continue Trileptal 300mg PO BID. Seizure precautions (9) History of CVA (cerebrovascular accident) Status: Chronic Comment: Continue Plavix 75mg PO Daily. Continue Asa 81mg PO Daily, continue Crestor 10mg POqHS PT/OT eval (10) Sacral decubitus ulcer Status: improving Comment: Wound care nurse referral. Turn pt Q2h Sacral wound finalized; Kelbsiella and Corneybacterium--->Ciprofloxcin 400mg IV qdaily (active since 06/21/16) Ordered for Ciprofloxcin 500mg PO daily for ten days Aggresive local wound care patient is both incontinent to bowel and bladder (11) History of CHF (congestive heart failure) Status: Chronic Comment: Patient started on Aspirin, Plavix, Statin, off norvasc given hypotension Monitor daily weights Intake and outputs Echocardiogram (06/19/16): mild concentric left ventricular hypertrophy. left ventricle systolic function is normal EF >70% (12) Prophylactic measure Status: Chronic Comment: Pepcid 20mg PO daily. SCDs. Heparin 5000U SC Q12h PT/OT eval wound care referral
--- NOTE | 2016-06-23 14:42 | PCM.HF ---
Heart Failure Core Measure - Heart Failure Ejection Fraction: 40 % or Greater (EF >70%) JEROME Inhibitor Prescribed: No Contraindication/Reason for not providing: ESRD Beta-Cady Prescribed: None Contraindication/Reason for not providing: HYPOTENSIVE Angiotensin II Receptor Cady Prescribed: No Contraindication/Reason for not providing: LOW BP AnticoagulationTherapy for Atrial Fibrillation/Atrialflutter: No Contraindication/Reason for not providing: no afib Aldosterone Antagonist Prescribed: No Contraindication/Reason for not providing: low BP Hydralazine Nitrate Prescribed: No Contraindication/Reason for not providing: discontinued due to low BP Implantable Cardioverter Defibrillator Therapy: No Contraindication/Reason for not providing: EF>70% Cardiac Resynchronization Therapy Prescribed: No Contraindication/Reason for not providing: not indicated - Follow up Will be discharged to: Nursing Home Facility ([facility]
--- NOTE | 2016-06-23 15:03 | CP.PCM.DIS ---
<Joy Denney - Last Filed: 06/23/16 16:39> Provider - Provider Date of Admission: 06/18/16 18:24 Attending physician: Dorie Murphy DO Primary care physician: None Consults: Heme/onc- Jeanine Wound care nurse Nephgiana-Shmuel Time Spent in preparation of Discharge (in minutes): 60 Hospital Course - Lab Results Lab Results: Micro Results 06/18/16 19:00 Blood Blood Culture - Preliminary NO GROWTH AFTER 4 DAYS 06/19/16 08:45 Sacral Gram Stain - Final 06/19/16 08:45 Sacral Wound Culture - Final Proteus Mirabilis Corynebacterium Species Most Recent Lab Values WBC 8.7 K/uL (4.8-10.8) 06/23/16 06:28 RBC 2.84 Mil/uL (3.80-5.20) L 06/23/16 06:28 Hgb 9.2 g/dL (11.0-16.0) L 06/23/16 06:28 Hct 27.8 % (34.0-47.0) L 06/23/16 06:28 MCV 97.8 fL (81.0-99.0) D 06/23/16 06:28 MCH 32.5 pg (27.0-31.0) H 06/23/16 06:28 MCHC 33.2 g/dL (33.0-37.0) 06/23/16 06:28 RDW 20.5 % (11.5-14.5) H 06/23/16 06:28 Plt Count 335 K/uL (130-400) 06/23/16 06:28 MPV 8.5 fL (7.2-11.7) 06/23/16 06:28 Neut % (Auto) 56.5 % (50.0-75.0) 06/23/16 06:28 Lymph % (Auto) 29.0 % (20.0-40.0) 06/23/16 06:28 [place] % (Auto) 10.5 % (0.0-10.0) H 06/23/16 06:28 Eos % (Auto) 2.7 % (0.0-4.0) 06/23/16 06:28 Baso % (Auto) 1.3 % (0.0-2.0) 06/23/16 06:28 Neut # 4.9 K/uL (1.8-7.0) 06/23/16 06:28 Lymph # 2.5 K/uL (1.0-4.3) 06/23/16 06:28 [place] # 0.9 K/uL (0.0-0.8) H 06/23/16 06:28 Eos # 0.2 K/uL (0.0-0.7) 06/23/16 06:28 Baso # 0.1 K/uL (0.0-0.2) 06/23/16 06:28 Retic Count 4.3 % (0.5-1.5) H D 06/19/16 06:56 PT 10.8 SECONDS (9.7-12.2) 06/18/16 17:15 INR 1.0 06/18/16 17:15 APTT 23 SECONDS (21-34) 06/18/16 17:15 Sodium 134 mmol/L (132-148) 06/23/16 06:28 Potassium 4.2 mmol/L (3.6-5.2) 06/23/16 06:28 Chloride 94 mmol/L (98-107) L 06/23/16 06:28 Carbon Dioxide 27 mmol/L (22-30) 06/23/16 06:28 Anion Gap 17 (10-20) 06/23/16 06:28 BUN 20 mg/dL (7-17) H 06/23/16 06:28 Creatinine 3.0 MG/DL (0.7-1.2) H 06/23/16 06:28 Est GFR ( Amer) 20 06/23/16 06:28 Est GFR (Non-Af Amer) 17 06/23/16 06:28 POC Glucose (mg/dL) 171 mg/dL (65-110) H 06/23/16 11:26 Random Glucose 118 mg/dL (65-105) H 06/23/16 06:28 Hemoglobin A1c 5.8 % (4.2-6.5) 06/19/16 06:56 Calcium 8.8 mg/dl (8.6-10.4) 06/23/16 06:28 Magnesium 2.1 mg/dL (1.6-2.3) 06/23/16 06:28 Iron 38 ug/dL (37-170) 06/18/16 19:42 TIBC 265 ug/dL (250-450) 06/18/16 19:42 % Saturation 11 (20-55) L 06/19/16 06:56 Ferritin 1350.0 ng/mL 06/19/16 06:56 Total Bilirubin 1.0 mg/dL (0.2-1.3) 06/23/16 06:28 AST 37 U/L (14-36) H D 06/23/16 06:28 ALT 32 U/L (9-52) 06/23/16 06:28 Alkaline Phosphatase 126 U/L (38-126) 06/23/16 06:28 Total Protein 6.7 g/dL (6.3-8.3) 06/23/16 06:28 Total Protein (PEP) 5.8 g/dL (6.1-8.1) L 06/22/16 07:00 Albumin 3.7 g/dL (3.5-5.0) 06/23/16 06:28 Globulin 3.0 gm/dL (2.2-3.9) 06/23/16 06:28 Albumin/Globulin Ratio 1.2 (1.0-2.1) 06/23/16 06:28 Triglycerides 225 mg/dL (0-149) H D 06/19/16 06:56 Cholesterol 157 mg/dL (0-199) 06/19/16 06:56 LDL Cholesterol Direct 61 mg/dL (0-129) 06/19/16 06:56 HDL Cholesterol 49 mg/dL (30-70) 06/19/16 06:56 Vitamin B12 > 1000 pg/mL (239-931) H 06/19/16 06:56 Folate > 20.0 ng/mL 06/19/16 06:56 Procalcitonin 1.50 NG/ML (0.19-0.49) H 06/23/16 06:28 Stool Occult Blood Negative (NEGATIVE) 06/18/16 17:39 C. difficile Ag & Toxin Negative (NEGATIVE) 06/18/16 08:45 HIV 1&2 Antibody Screen Negative (NEGATIVE) 06/22/16 07:00 Blood Type B POSITIVE 06/21/16 12:27 Antibody Screen Negative 04/13/17 12:27 - Hospital Course Hospital Course: On hospital course Pt admitted to hospital for anemia from [facility] with fevers. Pt started on antibiotics, cultures negative. Pt seen/evaluated by nephro with continuance of dialysis. Echo done with mild concentric LVH, LV systolic functoin normal, EF >70%. Procalcitonin downtrended over course of hospitalization. Pt w/transient electrolyte imbalances - addressed with replacement and monitored. HIV and C diff were negative. Stool occult blood neg. Leukocytosis resolved over course of hospitalization with antibiotics. Pt with sacral wound, positive for Proteus Mirabilis. Pt seen/evaluated by wound care nurse with recommendations for medihoney and optifoam wound dressings daily. Pt w/anemia during hospitlization- given 1 unit pRBCs with good response. Pt medically stable for discharge back to [facility], to contine all meds and to complete a course of antibiotics. Immunological work up as per heme/onc was pending at time of discharge. On hospital discharge Patient medically stable for transfer to [facility]. Please continue all medications as specified in EMR. Per wound care nurse- please apply medihoney daily to sacral decubitus ulcer with optifoam dressing. Please follow up with your primary care physician within 1 week after discharge from hospital. Please return to hospital if you have a recurrence of symptoms. Diagnoses Leukocytosis Anemia Hyperkalemia HTN Hypercholesterolemia Hypercalcemia associated w/chronic dialysis Hx Seizure disorder Hx CVA Sacral decubitus ulcer Hx CHF Thrush Medications Ciprofloxacin [Cipro] 500 mg PO DAILY #10 tab Saccharomyces Boulardi [Florastor] 250 mg PO BID #20 cap Crestor 10mg PO HS ASA 81mg PO Daily Floraster 250mg BID Heparin 5,000 Units SC Q12 Neurontin 100mg PO TID Nystatin 5mL PO QID Pepcid 20mg PO Daily Plavix 75mg PO Daily Procrit 10,000 unit MWF oxycarbazepine 300mg PO BID Tylenol 650mg PO Q6H PRN - Date & Time of H&P Date of H&P: 06/18/16 Time of H&P: 20:11 Discharge Exam - Head Exam Head Exam: ATRAUMATIC, NORMAL INSPECTION, NORMOCEPHALIC - Eye Exam Eye Exam: EOMI, Normal appearance, PERRL Pupil Exam: NORMAL ACCOMODATION, PERRL - ENT Exam ENT Exam: Mucous Membranes Moist, Normal Exam - Neck Exam Neck exam: Full Rom, Normal Inspection - Respiratory Exam Respiratory Exam: Clear to PA & Lateral, NORMAL BREATHING PATTERN, UNREMARKABLE. absent: Accessory Muscle Use - Cardiovascular Exam Cardiovascular Exam: REGULAR RHYTHM, +S1, +S2 - GI/Abdominal Exam GI & Abdominal Exam: Normal Bowel Sounds, Soft, Unremarkable. absent: Tenderness - Extremities Exam Additional comments: Pt w/contractures of hands B/L, does not have full ROM - Neurological Exam Neurological exam: Alert Additional comments: Pt only oriented to self - Psychiatric Exam Psychiatric exam: Normal Affect, Normal Mood - Skin Skin Exam: Dry, Intact, Normal Color, Warm Discharge Plan - Discharge Medications Prescriptions: Ciprofloxacin [Cipro] 500 mg PO DAILY #10 tab Saccharomyces Boulardi [Florastor] 250 mg PO BID #20 cap - Follow Up Plan Condition: STABLE Disposition: NURSING FACILITY MEDICAID CERT Instructions: Hyperkalemia (DC), Leukocytosis (DC), Anemia (DC), End Stage Kidney Disease (DC) Additional Instructions: Patient medically stable for transfer to [facility]. Please continue all medications as specified in EMR. Per wound care nurse- please apply medihoney daily to sacral decubitus ulcer with optifoam dressing. Please follow up with your primary care physician within 1 week after discharge from hospital. Please return to hospital if you have a recurrence of symptoms. <Dorie Murphy V - Last Filed: 06/25/16 04:11> Provider - Provider Date of Admission: 06/18/16 18:24 Attending physician: Dorie Murphy, DO Hospital Course - Lab Results Lab Results: Micro Results 06/18/16 19:00 Blood Blood Culture - Final NO GROWTH AFTER 5 DAYS 06/18/16 19:00 Blood Gram Stain - Final TEST NOT PERFORMED 06/19/16 08:45 Sacral Gram Stain - Final 06/19/16 08:45 Sacral Wound Culture - Final Proteus Mirabilis Corynebacterium Species Most Recent Lab Values WBC 8.7 K/uL (4.8-10.8) 06/23/16 06:28 RBC 2.84 Mil/uL (3.80-5.20) L 06/23/16 06:28 Hgb 9.2 g/dL (11.0-16.0) L 06/23/16 06:28 Hct 27.8 % (34.0-47.0) L 06/23/16 06:28 MCV 97.8 fL (81.0-99.0) D 06/23/16 06:28 MCH 32.5 pg (27.0-31.0) H 06/23/16 06:28 MCHC 33.2 g/dL (33.0-37.0) 06/23/16 06:28 RDW 20.5 % (11.5-14.5) H 06/23/16 06:28 Plt Count 335 K/uL (130-400) 06/23/16 06:28 MPV 8.5 fL (7.2-11.7) 06/23/16 06:28 Neut % (Auto) 56.5 % (50.0-75.0) 06/23/16 06:28 Lymph % (Auto) 29.0 % (20.0-40.0) 06/23/16 06:28 [place] % (Auto) 10.5 % (0.0-10.0) H 06/23/16 06:28 Eos % (Auto) 2.7 % (0.0-4.0) 06/23/16 06:28 Baso % (Auto) 1.3 % (0.0-2.0) 06/23/16 06:28 Neut # 4.9 K/uL (1.8-7.0) 06/23/16 06:28 Lymph # 2.5 K/uL (1.0-4.3) 06/23/16 06:28 [place] # 0.9 K/uL (0.0-0.8) H 06/23/16 06:28 Eos # 0.2 K/uL (0.0-0.7) 06/23/16 06:28 Baso # 0.1 K/uL (0.0-0.2) 06/23/16 06:28 Retic Count 4.3 % (0.5-1.5) H D 06/19/16 06:56 PT 10.8 SECONDS (9.7-12.2) 06/18/16 17:15 INR 1.0 06/18/16 17:15 APTT 23 SECONDS (21-34) 06/18/16 17:15 Sodium 134 mmol/L (132-148) 06/23/16 06:28 Potassium 4.2 mmol/L (3.6-5.2) 06/23/16 06:28 Chloride 94 mmol/L (98-107) L 06/23/16 06:28 Carbon Dioxide 27 mmol/L (22-30) 06/23/16 06:28 Anion Gap 17 (10-20) 06/23/16 06:28 BUN 20 mg/dL (7-17) H 06/23/16 06:28 Creatinine 3.0 MG/DL (0.7-1.2) H 06/23/16 06:28 Est GFR ( Amer) 20 06/23/16 06:28 Est GFR (Non-Af Amer) 17 06/23/16 06:28 POC Glucose (mg/dL) 139 mg/dL (65-110) H 06/23/16 17:05 Random Glucose 118 mg/dL (65-105) H 06/23/16 06:28 Hemoglobin A1c 5.8 % (4.2-6.5) 06/19/16 06:56 Calcium 8.8 mg/dl (8.6-10.4) 06/23/16 06:28 Magnesium 2.1 mg/dL (1.6-2.3) 06/23/16 06:28 Iron 38 ug/dL (37-170) 06/18/16 19:42 TIBC 265 ug/dL (250-450) 06/18/16 19:42 % Saturation 11 (20-55) L 06/19/16 06:56 Ferritin 1350.0 ng/mL 06/19/16 06:56 Total Bilirubin 1.0 mg/dL (0.2-1.3) 06/23/16 06:28 AST 37 U/L (14-36) H D 06/23/16 06:28 ALT 32 U/L (9-52) 06/23/16 06:28 Alkaline Phosphatase 126 U/L (38-126) 06/23/16 06:28 Total Protein 6.7 g/dL (6.3-8.3) 06/23/16 06:28 Total Protein (PEP) 5.8 g/dL (6.1-8.1) L 06/22/16 07:00 Albumin 3.7 g/dL (3.5-5.0) 06/23/16 06:28 Globulin 3.0 gm/dL (2.2-3.9) 06/23/16 06:28 Albumin/Globulin Ratio 1.2 (1.0-2.1) 06/23/16 06:28 Triglycerides 225 mg/dL (0-149) H D 06/19/16 06:56 Cholesterol 157 mg/dL (0-199) 06/19/16 06:56 LDL Cholesterol Direct 61 mg/dL (0-129) 06/19/16 06:56 HDL Cholesterol 49 mg/dL (30-70) 06/19/16 06:56 Vitamin B12 > 1000 pg/mL (239-931) H 06/19/16 06:56 Folate > 20.0 ng/mL 06/19/16 06:56 Procalcitonin 1.50 NG/ML (0.19-0.49) H 06/23/16 06:28 Stool Occult Blood Negative (NEGATIVE) 06/18/16 17:39 Free [place] Light Chains 147.5 mg/L (3.3-19.4) H 06/22/16 07:00 Free [place] Light Chain 99.9 mg/L (5.7-26.3) H 06/22/16 07:00 Free [place]/Lambda Ratio 1.48 (0.26-1.65) 06/22/16 07:00 C. difficile Ag & Toxin Negative (NEGATIVE) 06/18/16 08:45 HIV 1&2 Antibody Screen Negative (NEGATIVE) 06/22/16 07:00 Blood Type B POSITIVE 06/21/16 12:27 Antibody Screen Negative 06/21/16 12:27 Attending/Attestation - Attestation I have personally seen and examined this patient.: Yes I have fully participated in the care of the patient.: Yes I have reviewed all pertinent clinical information, including history, physical exam and plan: Yes Notes (Text): This is a late computer entry for 06/23/16. Patient seen, examined, and case discussed with day-time resident. Patient is clinically stable for discharge, will need to continue PO Ciprofloxcin for sacral wound, stage 2. Note: patient is incontinent of bowel and urine which is a contributing factor and will require wound care and constant turning to help offload pressure on the wound. Patient is oriented to self at baseline. Appreciate recommendation by heme-onc. Patient's hemoglobin improved to 9.2. Patient recommended for outpatient colonoscopy. Please see details from my progress note from 06/23/16. This is a summary of patient's hospitalization. Please refer to EMR for further details
--- NOTE | 2016-06-23 17:36 | CP.PCM.CON ---
History of Present Illness - History of Present Illness History of Present Illness: Hematology Consult Referred by Dr. Murphy for evaluation of anemia HPI- Ms Carrillo is 50 y/o F with multiple medical problems including HTN, DM, CVA , seizure, ESRD on HD, depression who was admitted on 06/18 with low grade fever and leucocytosis. She was treated with UTI and WBC improved. She has chronic anemia with Hb ranging from 9 -11. During this admission, Hb had dropped to 7.2 but today is 9.2. Stool ocult was negative and no h/o bleeding. Other work up showed iron def (% iron sats of 11%), normal B12 and Folate. SPEP is pending. She is clinically stable today and will be discharged to [facility]. Review of Systems - Review of Systems All systems: reviewed and no additional remarkable complaints except Review of Systems: as listed in HPI Past Patient History - Infectious Disease Hx of Infectious Diseases: None - Tetanus Immunizations Tetanus Immunization: Unknown - Past Medical History & Family History Past Medical History?: Yes - Past Social History Smoking Status: Former Smoker - CARDIAC Hx Congestive Heart Failure: Yes Hx Hypercholesterolemia: Yes Hx Hypertension: Yes - PULMONARY Hx Pneumonia: Yes - NEUROLOGICAL HX Cerebrovascular Accident: Yes - HEENT Hx HEENT Problems: Yes (poor vision, blurred right eye) - RENAL Hx Renal Failure: Yes - ENDOCRINE/METABOLIC Hx Diabetes Mellitus Type 2: Yes - HEMATOLOGICAL/ONCOLOGICAL Hx Anemia: Yes - INTEGUMENTARY Hx Dermatological Problems: No - MUSCULOSKELETAL/RHEUMATOLOGICAL Hx Falls: No Other/Comment: wheelchairbound - GASTROINTESTINAL Hx Crohn's Disease: No Hx Diverticulitis: No Hx Gall Bladder Disease: No Hx Pancreatitis: No - GENITOURINARY/GYNECOLOGICAL Hx Sexually Transmitted Disorders: No - PSYCHIATRIC Hx Anxiety: Yes Hx Substance Use: No - SURGICAL HISTORY Hx Cholecystectomy: Yes (04/02/13) - ANESTHESIA Hx Anesthesia: Yes Hx Anesthesia Reactions: No Hx Malignant Hyperthermia: No Meds Home Medications: Home Medication List Medication Instructions Recorded Confirmed Type Aspirin [Ecotrin] 81 mg PO DAILY tabec 06/23/16 Rx Ciprofloxacin [Cipro] 500 mg PO DAILY #10 tab 06/23/16 Rx Nystatin [Nystatin Oral Susp] 5 ml PO QID udc 06/23/16 Rx Saccharomyces Boulardi [Florastor] 250 mg PO BID #20 cap 06/23/16 Rx Allergies/Adverse Reactions: Allergies Allergy/AdvReac Type Severity Reaction Status Date / Time No Known Allergies Allergy Verified 06/18/16 16:03 - Medications Medications: Current Medications Acetaminophen (Tylenol 325mg Tab) 650 mg PO Q6 PRN PRN Reason: Fever >100.4 F Albumin Human (Albumin Human 25% (12.5 Gm/50 Ml)) 12.5 gm IV MWF [facility] Aspirin (Ecotrin) 81 mg PO DAILY [facility] Last Admin: 06/23/16 10:18 Dose: 81 mg Ciprofloxacin (Cipro) 500 mg PO DAILY [facility] Stop: 07/04/16 10:01 Clopidogrel Bisulfate (Plavix) 75 mg PO DAILY [facility] Last Admin: 06/23/16 10:18 Dose: 75 mg Epoetin Nemesio (Procrit) 10,000 unit IV [facility] Last Admin: 06/22/16 16:30 Dose: 10,000 unit Famotidine (Pepcid) 20 mg PO DAILY [facility] Last Admin: 06/23/16 10:18 Dose: 20 mg Gabapentin (Neurontin) 100 mg PO TID [facility] Last Admin: 06/23/16 13:14 Dose: 100 mg Heparin Sodium (Porcine) (Heparin) 5,000 units SC Q12 [facility] Last Admin: 06/23/16 10:18 Dose: 5,000 units Nystatin (Nystatin Oral Susp) 5 ml PO QID [facility] Last Admin: 06/23/16 13:15 Dose: 5 ml Oxcarbazepine (Trileptal) 300 mg PO BID [facility] Last Admin: 06/23/16 10:19 Dose: 300 mg Rosuvastatin Calcium (Crestor) 10 mg PO HS [facility] Last Admin: 06/22/16 22:08 Dose: 10 mg Saccharomyces Boulardii (Florastor) 250 mg PO BID [facility] Last Admin: 06/23/16 10:19 Dose: 250 mg Physical Exam - Eye Exam Eye Exam: EOMI, PERRL - ENT Exam ENT Exam: Mucous Membranes Moist - Respiratory Exam Respiratory Exam: Clear to Auscultation Bilateral - Cardiovascular Exam Cardiovascular Exam: REGULAR RHYTHM - GI/Abdominal Exam GI & Abdominal Exam: Normal Bowel Sounds, Soft. absent: Tenderness - Extremities Exam Extremities exam: Negative for: pedal edema Results - Vital Signs Recent Vital Signs: Last Vital Signs Temp 98.5 F 06/23/16 08:46 Pulse 72 06/23/16 08:46 Resp 20 04/15/17 08:46 BP 148/83 06/23/16 08:46 Pulse Ox 97 06/23/16 08:46 - Labs Result Diagrams: 06/23/16 06:28 06/23/16 06:28 Labs: Laboratory Results - last 24 hr 06/22/16 06/23/16 06/23/16 07:00 06:06 06:28 WBC 8.7 RBC 2.84 L Hgb 9.2 L Hct 27.8 L MCV 97.8 D MCH 32.5 H MCHC 33.2 RDW 20.5 H Plt Count 335 MPV 8.5 Neut % (Auto) 56.5 Lymph % (Auto) 29.0 [place] % (Auto) 10.5 H Eos % (Auto) 2.7 Baso % (Auto) 1.3 Neut # 4.9 Lymph # 2.5 [place] # 0.9 H Eos # 0.2 Baso # 0.1 Sodium 134 Potassium 4.2 Chloride 94 L Carbon Dioxide 27 Anion Gap 17 BUN 20 H Creatinine 3.0 H Est GFR ( Amer) 20 Est GFR (Non-Af Amer) 17 POC Glucose (mg/dL) 128 H Random Glucose 118 H Calcium 8.8 Magnesium 2.1 Total Bilirubin 1.0 AST 37 H D ALT 32 Alkaline Phosphatase 126 Total Protein 6.7 Total Protein (PEP) 5.8 L Albumin 3.7 Globulin 3.0 Albumin/Globulin Ratio 1.2 Procalcitonin 1.50 H 06/23/16 06/23/16 11:26 17:05 WBC RBC Hgb Hct MCV MCH MCHC RDW Plt Count MPV Neut % (Auto) Lymph % (Auto) [place] % (Auto) Eos % (Auto) Baso % (Auto) Neut # Lymph # [place] # Eos # Baso # Sodium Potassium Chloride Carbon Dioxide Anion Gap BUN Creatinine Est GFR ( Amer) Est GFR (Non-Af Amer) POC Glucose (mg/dL) 171 H 139 H Random Glucose Calcium Magnesium Total Bilirubin AST ALT Alkaline Phosphatase Total Protein Total Protein (PEP) Albumin Globulin Albumin/Globulin Ratio Procalcitonin Assessment & Plan - Assessment and Plan (Free Text) Assessment: Chronic anemia Some of the differentials include iron def anemia, anemia of CKD, GI blood loss , bone marrow dysfunction (e.g. MDS), bone marrow suppression etc. I agree with procrit supplementation. We could also start her on low dose oral iron supplement (ferrous sulfate 325 mg once daily) for now. She needs screening colonoscopy if not performed recently (for iron deficiency) . F/U SPEP/SIFE Continue to routinely monitor other cell counts. In future, if anemia worsens or other cell lines get affected, we could consider bone marrow biopsy. Thank you for the consult Inocente Solorzano MD - Date & Time Date: 06/23/16 Time: 17:36
[2016-06-23 18:38] VITALS: PULSE 71; TEMP 98.1; O2SAT 100
[2016-06-23 18:56] VITALS: BP 166/92
[2016-06-25 03:01] LABS: FREE KAPPA SERUM 147.5 mg/L (3.3-19.4); FREE LAMBDA SERUM 99.9 mg/L (5.7-26.3)
[2016-06-25] MEDS ORDERED: Albumin Human 25% (12.5 gm/50 ml) IV SCH (09:00)
[2016-06-25 18:38] LABS: BETA 1 GLOBULIN 0.4 g/dL (0.4-0.6); BETA 2 GLOBULIN 0.4 g/dL (0.2-0.5); GAMMA GLOBULIN 0.8 g/dL (0.8-1.7)
== END 2016-06-23 20:06 | DRG 566 ==
LOC: C.ER 15:50 → C.9E 18:24 → C.3T 21:36 → C.6T 06-19 02:20
PROVIDERS: ADMIT Hospitalist; ATTEND Hospitalist
PROC: 5A1D60Z (ICD-10-PCS; principal; 2016-06-18)
DX: E11.622 Type 2 diabetes mellitus with other skin ulcer (principal); L89.152 Pressure ulcer of sacral region, stage 2; I13.2 Hypertensive heart and chronic kidney disease with heart failure and with stage 5 chronic kidney disease, or end stage renal disease; N18.6 End stage renal disease; B37.0 Candidal stomatitis; E83.52 Hypercalcemia; E87.5 Hyperkalemia; I50.9 Heart failure, unspecified; R32 Unspecified urinary incontinence; N39.0 Urinary tract infection, site not specified; B96.4 Proteus (mirabilis) (morganii) as the cause of diseases classified elsewhere; Z99.2 Dependence on renal dialysis; D63.1 Anemia in chronic kidney disease; E78.00 Pure hypercholesterolemia, unspecified; G40.909 Epilepsy, unspecified, not intractable, without status epilepticus; F32.9 Major depressive disorder, single episode, unspecified; Z86.73 Personal history of transient ischemic attack (TIA), and cerebral infarction without residual deficits; Z87.01 Personal history of pneumonia (recurrent); Z87.891 Personal history of nicotine dependence; H54.7 Unspecified visual loss; Z68.23 Body mass index [BMI] 23.0-23.9, adult; R33.9 Retention of urine, unspecified

== ENCOUNTER 2016-08-08 06:52 | Inpatient (IN) | payer MEDICAID ==
[2016-08-08 06:52] VITALS: BMI 28.1
[2016-08-08 07:41] LABS: BASO # 0.1 K/uL (0.0-0.2); NRBC % 0.1 % (0.0-2.0)
--- NOTE | 2016-08-08 07:49 | C.PDOC ---
History Of Present Illness Patient BERENICE from [facility] for evaluation of generalized weakness, fever. Patient has h/o CVA, DM, HTN, ESRD ON HD (M,W,F) seizure disorder. She is unable to provide history/info due to clinical condition, history is as per PA form and EMS. Time Seen by Provider: 08/08/16 07:10 Chief Complaint (Nursing): Weakness/Neurological Deficit History Per: EMS, Other (PA papers) History/Exam Limitations: clinical condition Onset/Duration Of Symptoms: Unknown Current Symptoms Are (Timing): Still Present Severity: Moderate Past Medical History Reviewed: Historical Data, Nursing Documentation, Vital Signs Vital Signs: Last Vital Signs Temp 98.7 F 08/14/16 16:00 Pulse 64 08/14/16 16:00 Resp 18 08/14/16 16:00 BP 166/71 H 08/14/16 16:00 Pulse Ox 97 08/14/16 16:00 - Medical History PMH: Anemia, Anxiety, CHF, Dementia, Depression, Diabetes, HTN, Hypercholesterolemia, Peripheral Edema (+2), Pneumonia, End Stage Renal Disease (DIALYSIS MWF), Chronic Kidney Disease Surgical History: Cholecystectomy (04/02/13) - [facility] Procedures BONE MARROW BIOPSY (02/10/13) DILATION OF LEFT CEPHALIC VEIN, PERCUTANEOUS APPROACH (08/20/15) EXTIRPATION OF MATTER FROM LEFT CEPHALIC VEIN, PERC APPROACH (08/20/15) FLUOROSCOPY OF DIALYSIS SHUNT/FISTULA USING OTHER CONTRAST (08/20/15) INJECT ANTICOAGULANT (03/02/14) INSERT INFUSION DEV IN R INT JUGULAR VEIN, PERC (08/20/15) LAPAROSCOPIC CHOLECYSTECTOMY (03/18/13) MAGNETIC RESONANCE IMAGING OF BRAIN AND BRAIN STEM (03/13/06) NEBULIZER THERAPY (01/27/07) OTHER ENDOSCOPY OF SM INTEST (02/10/13) OTHER SKIN & SUBQ I D (07/08/04) PACKED CELL TRANSFUSION (03/02/14) PERFORMANCE OF URINARY FILTRATION, MULTIPLE (06/18/16) PERFORMANCE OF URINARY FILTRATION, SINGLE (02/15/16) TETANUS TOXOID ADMINIST (07/08/04) ULTRASONOGRAPHY OF RIGHT JUGULAR VEINS, GUIDANCE (08/20/15) Family History: States: Unknown Family Hx - Social History Hx Tobacco Use: No Hx Alcohol Use: No Hx Substance Use: No - Immunization History Hx Tetanus Toxoid Vaccination: No Hx Influenza Vaccination: No (04/2015) Hx Pneumococcal Vaccination: Yes (03/2014) Review Of Systems Review Of Systems: ROS cannot be obtained secondary to pt's inabilty to answer questions. Physical Exam - Physical Exam Appears: Non-toxic, Other (awake, alert, nonverbal, moaning) Skin: Warm (warm to the touch ) Oral Mucosa: Moist Cardiovascular: Rhythm Regular (tachycardic ) Respiratory: Rales (B/L bases), No Rhonchi, No Wheezing Gastrointestinal/Abdominal: Normal Exam, Bowel Sounds, Soft, No Tenderness Extremity: Normal ROM, No Pedal Edema, No Calf Tenderness Pulses: Left Dorsalis Pedis: Normal, Right Dorsalis Pedis: Normal ED Course And Treatment - Laboratory Results Result Diagrams: 08/14/16 12:15 08/14/16 12:15 ECG: Interpreted By Me, Viewed By Me (sinus tachycardia 103 bpm, left axis deivation, no acute ST/T wave changes) ECG Interpretation: Abnormal (mild tachycardia ) O2 Sat by Pulse Oximetry: 95 (ra) Pulse Ox Interpretation: Normal - Radiology CXR: Interpreted by Me, Viewed By Me (no infiltrates/effusions) Progress Note: Blood work, EKG, CXR, UA ordered and reviewed. Patient given tylenol for fever, and broad spectrum antibiotics. 9:35am - Patient still mildly tachycardic, but BP stable, lactate WNL - stable for telemetry at this time. - Physician Consult Information Physician Contacted: Humberto Garcia Outcome Of Conversation: Discussed patient with hospitalist, agrees with admission for UTI, fever, ESRD on HD, fluid overload, AMS, tachycardia. Medical Decision Making Medical Decision Making: differential diagnoses considered: UTI, pneumonia, cellulitis/decubitus ulcer infection, intraabdominal infection, bacteremia/infected catheter, dehydration Disposition - Disposition Disposition: HOSPITALIZED Disposition Time: 09:39 Condition: FAIR - Clinical Impression Clinical Impression: Fever, UTI (urinary tract infection), ESRD (end stage renal disease) on dialysis, Altered mental status, Fluid overload Decision To Admit - Pt Status Changed To: Hospital Disposition Of: Inpatient - Admit Certification Admit to Inpatient:: After my assessment, the patient will require hospitalization for at least two midnights. This is because of the severity of symptoms shown, intensity of services needed, and/or the medical risk in this patient being treated as an outpatient. - InPatient: Physician Admission Certification: I certify that this patient requires 2 or more midnights of care for the following reason:: see notes - . Bed Request Type: Telemetry Admitting Physician: Humberto Garcia Patient Diagnosis: Fever, UTI (urinary tract infection), ESRD (end stage renal disease) on dialysis, Altered mental status, Fluid overload
[2016-08-08 07:51] LABS: BASO % 0.3 % (0.0-2.0); HEMATOCRIT 44.1 % (34.0-47.0); LYMPH # 1.3 K/uL (1.0-4.3); LYMPH % 4.3 % (20.0-40.0); MEAN CORPUSCULAR HEMOGLOBIN 32.2 pg (27.0-31.0); MEAN CORPUSCULAR HGB CONC 31.4 g/dL (33.0-37.0); MEAN PLATELET VOLUME 9.9 fL (7.2-11.7); MONO # 1.6 K/uL (0.0-0.8); MONO % 5.1 % (0.0-10.0); PLATELET COUNT 252 K/uL (130-400); RED CELL DISTRIBUTION WIDTH 16.6 % (11.5-14.5)
[2016-08-08 07:52] LABS: MEAN CELL VOLUME 102.4 fL (81.0-99.0); WHITE BLOOD COUNT 30.1 K/uL (4.8-10.8)
[2016-08-08] MEDS ORDERED: Sodium Chloride 0.9% 250 ML IV ONE ×2 (07:55→11:21)
[2016-08-08 08:11] LABS: VENOUS BLOOD GAS BASE EXCESS -8.1 mmol/L (0.0-2.0); VENOUS BLOOD GAS PCO2 37 mmHg (40-60); VENOUS BLOOD PH 7.29 (7.32-7.43)
[2016-08-08 08:21] LABS: CHLORIDE 96 mmol/L (98-107); SODIUM 140 mmol/L (132-148)
[2016-08-08 08:23] LABS: AST/SGOT 42 U/L (14-36); BILIRUBIN,TOTAL 1.6 mg/dL (0.2-1.3); CARBON DIOXIDE 18 mmol/L (22-30); GFR AFRICAN-AMERICAN 8; TOTAL PROTEIN 7.7 g/dL (6.3-8.3)
[2016-08-08 08:24] LABS: ALKALINE PHOSPHATASE 154 U/L (38-126); BLOOD UREA NITROGEN 69 mg/dL (7-17); GLUCOSE,RANDOM 296 mg/dL (65-105)
[2016-08-08 08:25] LABS: ALT/SGPT 36 U/L (9-52); CALCIUM 9.7 mg/dl (8.6-10.4)
[2016-08-08 08:29] LABS: POTASSIUM 5.6 mmol/L (3.6-5.2)
[2016-08-08 08:42] LABS: NEUTROPHIL 92 % (50-75); TOTAL CELLS COUNTED 100
[2016-08-08 08:58] LABS: RBC URINE 5 /hpf (0-3); URINE BACTERIA MOD (<OCC); URINE BILIRUBIN NEGATIVE (NEGATIVE); URINE BLOOD 1+ (NEGATIVE); URINE COLOR Yellow (YELLOW); URINE GLUCOSE (UA) 3+ mg/dL (Normal); URINE KETONE NEGATIVE (NEGATIVE); URINE LEUKOCYTE ESTERASE 3+ Leu/uL (Negative); URINE PROTEIN 2+ mg/dL (NEGATIVE); URINE UROBILINOGEN NORMAL mg/dL (0.2-1.0)
[2016-08-08 09:00] LABS: WBC URINE 106 /hpf (0-5)
[2016-08-08] MEDS ORDERED: Cefepime 1 GM in Sodium Chloride 0.9% 50 ML IVPB ONE (09:03)
[2016-08-08] MEDS ORDERED: Moxifloxacin IV 400mg/250ml NS 400 MG/250 ML BAG IV ONE (09:03)
[2016-08-08] MEDS ORDERED: Moxifloxacin IV 400mg/250ml NS 400 MG/250 ML BAG IVPB ONE (09:18)
--- NOTE | 2016-08-08 09:23 | RAD ---
PROCEDURE: CHEST RADIOGRAPH, 1 VIEW HISTORY: WEAK, FEVER COMPARISON: 06/19/2016 FINDINGS: LUNGS: Lines and tubes stable position. Mild right hilar prominence. No focal infiltrate or effusion. PLEURA: No pneumothorax or pleural fluid seen. CARDIOVASCULAR: Normal. OSSEOUS STRUCTURES: No significant abnormalities. VISUALIZED UPPER ABDOMEN: Surgical clips in the upper abdomen. Gaseous distention of bowel loops. OTHER FINDINGS: None. IMPRESSION: Lines and tubes stable position. Mild right hilar prominence. No focal infiltrate or effusion.
[2016-08-08] MEDS ORDERED: Cefepime IV 1 gm in Dextrose 1 GM/50 ML BAG IVPB ONE (12:00)
[2016-08-08] MEDS: Sodium Chloride 0.9% 1,000 ML IV SCH (12:51)
[2016-08-08] MEDS: Vancomycin 1 gm/NS 200 ml 1 GM/200 ML BAG IVPB SCH (12:51)
--- NOTE | 2016-08-08 14:03 | CP.PCM.HP ---
<Zaida Mercedes - Last Filed: 08/08/16 14:10> History of Present Illness - History of Present Illness History of Present Illness: cc: unable to obtain HPI: Patient BERENICE from [facility] for evaluation of generalized weakness, fever. Patient has h/o CVA, DM, HTN, ESRD ON HD (M,W,F) seizure disorder. She is unable to provide history/info due to clinical condition, history is as per [place] form and EMS. Call placed to Alphonse and daughter but no response received. Baseline mental stsus unknown. Coded sepsis called in ED. NG tube placed. Patient given abx IV. (As documented in previous records) All: NKDA PMD: Dr. Eldridge, Dr. Mi (nephro) PMH: depression, ESRD on HD, HTN, hyperlipidemia, DM II, old CVA, hx of seizures Meds: Asa, plavix, floraster, Repaglinide 0.5 mg AC, Oxcarbazepine 300mg PO BID , Gabapentin 100 mg PO TID, Duloxetine 60mg PO daily, Vit C 500 mg PO Daily PSH: cholecystectomy in 2013 Soc Hx: quit tobacco/etoh use in 2010 Present on Admission - Present on Admission Any Indicators Present on Admission: No Review of Systems - Review of Systems Systems not reviewed;Unavailable: Acuity of Condition, Altered Mental Status Past Patient History - Infectious Disease Hx of Infectious Diseases: None - Tetanus Immunizations Tetanus Immunization: Unknown - Past Medical History & Family History Past Medical History?: Yes - Past Social History Smoking Status: Former Smoker - CARDIAC Hx Congestive Heart Failure: Yes Hx Hypercholesterolemia: Yes Hx Hypertension: Yes Hx Peripheral Edema: Yes (+2) - PULMONARY Hx Pneumonia: Yes - NEUROLOGICAL Hx Dementia: Yes - HEENT Hx HEENT Problems: Yes (poor vision, blurred right eye) - RENAL Hx Chronic Kidney Disease: Yes - ENDOCRINE/METABOLIC Hx Hyperthyroidism: No Hx Hypothyroidism: No - HEMATOLOGICAL/ONCOLOGICAL Hx Anemia: Yes - INTEGUMENTARY Hx Dermatological Problems: No - MUSCULOSKELETAL/RHEUMATOLOGICAL Hx Arthritis: No Hx Fractures: No Hx Osteoporosis: No - GASTROINTESTINAL Hx Gall Bladder Disease: No - GENITOURINARY/GYNECOLOGICAL Hx Sexually Transmitted Disorders: No - PSYCHIATRIC Hx Anxiety: Yes Hx Depression: Yes Hx Substance Use: No - SURGICAL HISTORY Hx Cholecystectomy: Yes (04/02/13) - ANESTHESIA Hx Anesthesia: Yes Hx Anesthesia Reactions: No Hx Malignant Hyperthermia: No Meds Allergies/Adverse Reactions: Allergies Allergy/AdvReac Type Severity Reaction Status Date / Time No Known Allergies Allergy Verified 06/18/16 16:03 Physical Exam - Constitutional Appears: Toxic, In Acute Distress - Head Exam Head Exam: ATRAUMATIC, NORMAL INSPECTION - Eye Exam Eye Exam: EOMI. absent: PERRL (less reactive, no nystagmus) Pupil Exam: NORMAL ACCOMODATION - ENT Exam ENT Exam: Mucous Membranes Dry - Respiratory Exam Respiratory Exam: Clear to Auscultation Bilateral, Rales (minimal at bases), NORMAL BREATHING PATTERN. absent: Accessory Muscle Use, Respiratory Distress - Cardiovascular Exam Cardiovascular Exam: Tachycardia, REGULAR RHYTHM, +S1, +S2 - GI/Abdominal Exam GI & Abdominal Exam: Normal Bowel Sounds, Soft, Tenderness. absent: Distended, Firm, Guarding Additional comments: grimaces when abdomen is palpated - Extremities Exam Extremities exam: Positive for: normal inspection, pedal edema - Neurological Exam Additional comments: not alert not oriented or responding to questions - Skin Skin Exam: Dry, Normal Color, Warm Results - Vital Signs Recent Vital Signs: Last Vital Signs Temp 101.9 F H 08/08/16 12:53 Pulse 100 H 08/08/16 13:46 Resp 22 08/08/16 13:46 BP 103/68 08/08/16 13:46 Pulse Ox 97 08/08/16 13:46 - Labs Result Diagrams: 08/08/16 07:36 08/08/16 08:04 Labs: Laboratory Results - last 24 hr 08/08/16 13:25 Lactic Acid 1.7 Assessment & Plan - Assessment and Plan (Free Text) Assessment: Sepsis (code sepsis) with altered mental status, baseline unknown Leukocytosis 30.1 with left shit and 2 bands VBG (ph 7.29, p02 33, pC02 37, pHCo3 17.5) VBG lactate 2, repeat lactate 1.7 ID consulted, Dr. Martinez - help appreciated ICU eval , Dr. Ansari, no need for ICU admission f/u urine and blood cultures EKG - NSr tachycardia, LVH no acute changes Chest X ray - mild right hilar prominence, no infiltrates f/u Head, chest, abd, pelvis CT f/u am labs ESRD on dialysis MWF, will get dialysis today Dr. Mi consulted, help appreciated CVA hx of CVA hold home ASA and plavix until CT results Seizures Oxcarbazepine 300mg PO BID f/u serum level seizure/aspiration precautions HLD f/u lipid panel HTN controlled - normotensive monitor BP Prophylactic Measures NPO - NG tube placed on low suction hold anticoagulation until CT results Nichols in place - monitor In/Outs <Humberto Garcia H - Last Filed: 08/09/16 07:52> Results - Vital Signs Recent Vital Signs: Last Vital Signs Temp 99.7 F H 08/09/16 04:36 Pulse 98 H 08/09/16 04:36 Resp 20 08/09/16 04:36 BP 148/82 08/09/16 04:36 Pulse Ox 100 08/09/16 04:36 - Labs Result Diagrams: 08/08/16 07:36 08/08/16 08:04 Labs: Laboratory Results - last 24 hr 08/08/16 08/08/16 08/08/16 13:25 14:04 15:13 POC Glucose (mg/dL) 283 H Lactic Acid 1.7 Total Creatine Kinase 31 CK-MB (Mass) 0.29 Troponin I, Quant 0.0940 Urine Color Urine Clarity Urine pH Ur Specific Eden Urine Protein Urine Glucose (UA) Urine Ketones Urine Blood Urine Nitrate Urine Bilirubin Urine Urobilinogen Ur Leukocyte Esterase Urine WBC (Auto) Urine RBC (Auto) Urine WBC Clumps (Auto) Ur Squamous Epith Cells Ur Renal Epithelial Cell Urine Bacteria 08/08/16 08/08/16 08/08/16 15:54 21:24 21:44 POC Glucose (mg/dL) 290 H 189 H Lactic Acid Total Creatine Kinase CK-MB (Mass) Troponin I, Quant Urine Color Yellow Urine Clarity Turbid Urine pH 8.0 Ur Specific Eden 1.012 Urine Protein 2+ H Urine Glucose (UA) 3+ H Urine Ketones Negative Urine Blood 3+ H Urine Nitrate Negative Urine Bilirubin Negative Urine Urobilinogen Normal Ur Leukocyte Esterase 3+ H Urine WBC (Auto) 295 H Urine RBC (Auto) 124 H Urine WBC Clumps (Auto) Few H Ur Squamous Epith Cells 37 H Ur Renal Epithelial Cell 1 Urine Bacteria Mod H 08/08/16 21:44 POC Glucose (mg/dL) Lactic Acid Total Creatine Kinase 39 CK-MB (Mass) < 0.22 Troponin I, Quant 0.0570 Urine Color Urine Clarity Urine pH Ur Specific Eden Urine Protein Urine Glucose (UA) Urine Ketones Urine Blood Urine Nitrate Urine Bilirubin Urine Urobilinogen Ur Leukocyte Esterase Urine WBC (Auto) Urine RBC (Auto) Urine WBC Clumps (Auto) Ur Squamous Epith Cells Ur Renal Epithelial Cell Urine Bacteria Attending/Attestation - Attestation I have personally seen and examined this patient.: Yes I have fully participated in the care of the patient.: Yes I have reviewed all pertinent clinical information: Yes Notes (Text): 08/09/16 07:47 Medical attending: Patient was seen and examined by me with the medical appointment clerk in ER bed 12. Agrees the above note by medical appointment clerk. From what I understand the patient has an extensive history of strokes in the past, the CT scan done by the emergency room shows that there is a lot of changes on the right side of the brain. When compared to previous CAT scans done here as well as MRI done here it's difficult to say if she's having further changes on the right side of her brain only because in the past imaging she is ready had so much damage there it's difficult to say what her baseline mental status is, currently she was nonresponsive and nonverbal when I saw her. Per review of old notes it says that she was somewhat talking the last time she was here however she did not know who she was the place or the time. She has a very large white blood cell count with some bandemia left shift as well. She does have end-stage renal disease and recently had a hemodialysis access. Imaging of the chest suggests that it might have some difficulty with that access. There is a potential for line infection. So she may or she may not need new hemodialysis access. By the time I came down to the ER she already had a new Nichols catheter. It's not clear to me if she had a Nichols catheter at the alf. They did take a urine sample it does appear to have infection. On exam she did have abdominal pain, when pressing on her abdomen she seemed to make a lot of facial grimaces. Because the patient was nonverbal and nonresponsive and in no condition to swallow we placed NG tube down. He did a little bit of suctioning reported out about 150 mL of dark purulent like material did not appear to have any blood in it. Later on a CT scan of the abdomen and pelvis was done it suggested that she might have some impaction of feet fecal material very low in the GI tract. Received to give some fleets enema as well as a oral laxity of via the NG tube Overall the prognosis looks poor. We might get new additional MRI imaging of the brain. Furthermore we need to watch the blood cultures. She's can be on IV into biotics Resident has tried to reach out to the family member however currently we have had a response yet we'll continue to try to reach out Thank you very much Humberto Garcia
[2016-08-08] MEDS ORDERED: Albumin Human 25% (12.5 gm/50 ml) IV ONE ×2 (14:55→15:57)
--- NOTE | 2016-08-08 15:09 | CT ---
PROCEDURE: CT HEAD WITHOUT CONTRAST. HISTORY: altered mental status COMPARISON: Noncontrast head CT performed 02/15/16 TECHNIQUE: Axial computed tomography images were obtained through the head/brain without intravenous contrast. Radiation dose: Total exam DLP = 873.09 mGy-cm. This CT exam was performed using one or more of the following dose reduction techniques: Automated exposure control, adjustment of the mA and/or kV according to patient size, and/or use of iterative reconstruction technique. FINDINGS: Streak artifact from dental hardware. HEMORRHAGE: No intracranial hemorrhage. BRAIN: Moderate diffuse atrophy with prominence of the ventricles and sulci noted. No mass effect or edema. Scattered periventricular and subcortical white matter hypodensities, which are nonspecific, but often seen with chronic microvascular ischemic disease. Multiple regions of encephalomalacia noted within the right frontal lobe and right occipital lobe. Encephalomalacia is also noted within the right cerebellar hemisphere. VENTRICLES: Dilated ventricular system likely resultant from adjacent volume loss. CALVARIUM: Unremarkable. PARANASAL SINUSES: Unremarkable as visualized. No significant inflammatory changes. MASTOID AIR CELLS: Unremarkable as visualized. No inflammatory changes. OTHER FINDINGS: Partial opacification of the left external auditory canal. Partially imaged nasogastric tube Age indeterminate nondisplaced right nasal bone fracture. IMPRESSION: Multiple regions of encephalomalacia involving the right frontal lobe, right occipital lobe, and right cerebellar hemisphere. Moderate diffuse generalized atrophy. Enlargement of the ventricular system, presumed secondary to atrophy. Age indeterminate nondisplaced right nasal bone fracture. Correlate clinically. Additional findings as above. Please note that MRI with diffusion imaging is more sensitive in the detection of acute ischemic event.
--- NOTE | 2016-08-08 16:42 | CT ---
A 1 CT chest, abdomen, and pelvis without IV contrast Indication: abd tenderness, altered Technique: Contiguous axial images of the chest, abdomen, and pelvis without oral or IV contrast. Coronal and Sagittal reformats generated and reviewed. This CT exam was performed using 1 or more of the falling dose reduction techniques: Automated exposure control, adjustment of the MAA and/or kV according to patient size, and/or use of iterative reconstruction technique. Radiation dose: Total exam DLP = 1110.21 MGy-cm. Comparison: Chest x-ray performed 08/08/16, CT abdomen and pelvis without IV contrast performed 03/19/13 Findings: Nasogastric tube extends to the stomach. Left-sided dialysis catheter extends to the proximal right ventricle. Visualized portions of the inferior thyroid gland appear unremarkable. The noncontrast mediastinal and hilar vascular structures appear grossly unremarkable. The heart appears within normal limits of size. Coronary artery calcifications. Mild bibasilar atelectasis. No focal consolidation. No pleural effusion. No pneumothorax. No suspicious pulmonary nodules measuring greater than 5 mm. Cholecystectomy. Bilateral atrophic kidneys. No evidence of hydronephrosis. Numerous bilateral renal calcifications several of which appear vascular. No obstructing calculi. Mild bilateral adrenal gland hypertrophy. Atrophic pancreas. The noncontrast liver appears grossly unremarkable. 14 mm probable splenule. Numerous punctate splenic calcifications, likely granulomas. The stomach is nondistended. Lack of oral contrast limits evaluation for bowel pathology. No evidence of small bowel obstruction Severe retained colonic fecal material with evidence of impaction involving the rectosigmoid colon. No secondary signs of acute appendicitis. There is no definite free air. The uterus is present. Nichols catheter within a decompressed urinary bladder which contains air, likely secondary to instrumentation. Multilevel degenerative changes. Osseous demineralization. Impression: Left-sided dialysis catheter extends to the level of the proximal right ventricle. The should be repositioned to terminate near the cavoatrial junction. Nasogastric tube extends to the stomach. Mild bibasilar atelectasis. Cholecystectomy. Bilateral atrophic kidneys. Numerous bilateral renal calcifications several of which appear vascular. No obstructing calculi. Mild bilateral adrenal gland hypertrophy. Atrophic pancreas. Numerous punctate splenic calcifications, likely granulomas. Severe retained colonic fecal material with evidence of impaction involving the rectosigmoid colon. Nichols catheter within a decompressed urinary bladder which contains air, likely secondary to instrumentation. Emergent findings discussed with SYLVIE Lawrence on 08/08/16 at 430pm.
--- NOTE | 2016-08-08 16:50 | CP.PCM.CON ---
History of Present Illness - History of Present Illness History of Present Illness: 51 y/o female with ESRD on maintenance HD, CVA,seizures,depression & chronic hypercalcemia was sent to ER from [place] because of generalized weakness & fever Pt is on MWF schedule & receives dialysis via Lt IJ permanent catheter Work up for hypercalcemia was unremarkable in the past Past Patient History - Infectious Disease Hx of Infectious Diseases: None - Tetanus Immunizations Tetanus Immunization: Unknown - Past Medical History & Family History Past Medical History?: Yes - Past Social History Smoking Status: Former Smoker - CARDIAC Hx Congestive Heart Failure: Yes Hx Hypercholesterolemia: Yes Hx Hypertension: Yes Hx Peripheral Edema: Yes (+2) - PULMONARY Hx Pneumonia: Yes - NEUROLOGICAL Hx Dementia: Yes - HEENT Hx HEENT Problems: Yes (poor vision, blurred right eye) - RENAL Hx Chronic Kidney Disease: Yes - ENDOCRINE/METABOLIC Hx Hyperthyroidism: No Hx Hypothyroidism: No - HEMATOLOGICAL/ONCOLOGICAL Hx Anemia: Yes - INTEGUMENTARY Hx Dermatological Problems: No - MUSCULOSKELETAL/RHEUMATOLOGICAL Hx Arthritis: No Hx Fractures: No Hx Osteoporosis: No - GASTROINTESTINAL Hx Gall Bladder Disease: No - GENITOURINARY/GYNECOLOGICAL Hx Sexually Transmitted Disorders: No - PSYCHIATRIC Hx Anxiety: Yes Hx Depression: Yes Hx Substance Use: No - SURGICAL HISTORY Hx Cholecystectomy: Yes (04/02/13) - ANESTHESIA Hx Anesthesia: Yes Hx Anesthesia Reactions: No Hx Malignant Hyperthermia: No Meds Allergies/Adverse Reactions: Allergies Allergy/AdvReac Type Severity Reaction Status Date / Time No Known Allergies Allergy Verified 06/18/16 16:03 - Medications Medications: Current Medications Sodium Chloride (Sodium Chloride 0.9%) 1,000 mls @ 80 mls/hr IV .[id number] [facility] Last Admin: 08/08/16 12:51 Dose: 80 mls/hr Cefepime HCl 1 gm/ Dextrose 50 mls @ 100 mls/hr IVPB Q12H [facility] Vancomycin/Sodium Chloride (Vancocin) 1 gm in 200 mls @ 133 mls/hr IVPB DAILY [facility] Stop: 08/13/16 13:31 Last Admin: 08/08/16 12:51 Dose: Not Given Albumin Human (Albumin Human 25% (12.5 Gm/50 Ml)) 50 mls @ 50 mls/hr IV ONCE ONE Stop: 08/08/16 17:59 Last Admin: 08/08/16 16:13 Dose: 50 mls/hr Physical Exam - Constitutional Additional comments: Appears weak - Head Exam Head Exam: ATRAUMATIC, NORMOCEPHALIC - Eye Exam Additional comments: No icterus - ENT Exam ENT Exam: Mucous Membranes Dry - Respiratory Exam Additional comments: Lungs clear - Cardiovascular Exam Cardiovascular Exam: REGULAR RHYTHM - GI/Abdominal Exam GI & Abdominal Exam: Soft - Extremities Exam Additional comments: No edema Results - Vital Signs Recent Vital Signs: Last Vital Signs Temp 100.7 F H 08/08/16 14:30 Pulse 97 H 08/08/16 15:37 Resp 20 08/08/16 15:37 BP 112/79 08/08/16 15:37 Pulse Ox 100 08/08/16 14:30 - Labs Result Diagrams: 08/08/16 07:36 08/08/16 08:04 Labs: Laboratory Results - last 24 hr 08/08/16 08/08/16 08/08/16 13:25 14:04 15:13 POC Glucose (mg/dL) 283 H Lactic Acid 1.7 Total Creatine Kinase 31 CK-MB (Mass) 0.29 Troponin I, Quant 0.0940 08/08/16 15:54 POC Glucose (mg/dL) 290 H Lactic Acid Total Creatine Kinase CK-MB (Mass) Troponin I, Quant Assessment & Plan - Assessment and Plan (Free Text) Assessment: Sepsis, severe leukocytosis. R/o line infection ESRD Hypotension Hx/o CVA & seizures Plan: Blood cultures were done On Vanco & Cefepime Hd support per schedule
--- NOTE | 2016-08-08 17:17 | CP.PCM.CON ---
History of Present Illness - History of Present Illness History of Present Illness: Patient from [facility] for evaluation of generalized weakness, fever. Patient has h/o CVA, DM, HTN, ESRD ON HD (M,W,F) seizure disorder. She is unable to provide history/info due to clinical condition, history is as per [place] form and EMS. . Patient given abx IV. Vanco/Cefepime All: NKDA PMD: Dr. Eldridge, Dr. Mi (nephro) PMH: depression, ESRD on HD, HTN, hyperlipidemia, DM II, old CVA, hx of seizures Meds: Asa, plavix, floraster, Repaglinide 0.5 mg AC, Oxcarbazepine 300mg PO BID , Gabapentin 100 mg PO TID, Duloxetine 60mg PO daily, Vit C 500 mg PO Daily PSH: cholecystectomy in 2013 Soc Hx: quit tobacco/etoh use in 2010 Review of Systems - Review of Systems Systems not reviewed;Unavailable: Altered Mental Status - Constitutional Constitutional: absent: As Per HPI, Anorexia, Chills, Daytime Sleepiness, Excessive Sweating, Fatigue, Fever, Frequent Falls, Headache, Increased Appetite , Lethargy, Malaise, Night Sweats, Snoring, Sleep Apnea, Weight Gain, Weight Loss, Weakness, Other - EENT Eyes: absent: As Per HPI, Blind Spots, Blurred Vision, Change in Vision, Decreased Night Vision, Diplopia, Discharge, Dry Eye, Exophthalmos, Floaters, Irritation, Itchy Eyes, Loss of Peripheral Vision, Pain, Photophobia, Requires Corrective Lenses, Sees Flashes, Spots in Vision, Tunnel Vision, Other Visual Disturbances, Loss of Vision, Other Ears: absent: As Per HPI, Decreased Hearing, Ear Discharge, Ear Pain, Tinnitus, Abnormal Hearing, Disequilibrium, Dizziness, Other Nose/Mouth/Throat: absent: As Per HPI, Epistaxis, Nasal Congestion, Nasal Discharge, Nasal Obstruction, Nasal Trauma, Nose Pain, Post Nasal Drip, Sinus Pain, Sinus Pressure, Bleeding Gums, Change in Voice, Dental Pain, Dry Mouth, Dysphagia, Halitosis, Hoarsness, Lip Swelling, Mouth Lesions, Mouth Pain, Odynophagia, Sore Throat, Throat Swelling, Tongue Swelling, Facial Pain, Neck Pain, Neck Mass, Other - Breasts Breasts: absent: As Per HPI, Change in Shape, Mass, Pain, Nipple Discharge, Nipple Inversion, Skin Changes, Swelling, Other - Cardiovascular Cardiovascular: absent: As Per HPI, Acrocyanosis, Chest Pain, Chest Pain at Rest , Chest Pain with Activity, Claudication, Diaphoresis, Dyspnea, Dyspnea on Exertion, Edema, Irregular Heart Rhythm, Pain Radiating to Arm/Neck/Jaw, Leg Edema, Leg Ulcers, Lightheadedness, Orthopnea, Palpitations, Paroxysmal Nocturnal Dyspnea, Pedal Edema, Radiating Pain, Rapid Heart Rate, Slow Heart Rate, Syncope, Other - Respiratory Respiratory: absent: As Per HPI, Cough, Dyspnea, Hemoptysis, Dyspnea on Exertion , Wheezing, Snoring, Stridor, Pain on Inspiration, Chest Congestion, Excessive Mucous Production, Change in Mucous Color, Pain with Coughing, Other - Gastrointestinal Gastrointestinal: absent: As Per HPI, Abdominal Pain, Belching, Bloating, Change in Bowel Habits, Change in Stool Character, Coffee Ground Emesis, Constipation, Cramping, Diarrhea, Dyspepsia, Dysphagia, Early Satiety, Excessive Flatus, Fecal Incontinence, Heartburn, Hematemesis, Hematochezia, Loose Stools, Melena, Nausea, Odynophagia, Temesmus, Vomiting, Other - Genitourinary Genitourinary: absent: As Per HPI, Change in Urinary Stream, Difficulty Urinating, Dysuria, Flank Pain, Hematuria, Pyuria, Nocturia, Urinary Incontinence, Urinary Frequency, Urinary Hesitance, Urinary Urgency, Voiding Freq/Small Amts, Freq UTI, Hx Renal/Bladder Calculi, Hx /Renal Surgery, Bladder Distension, Other - Reproductive: Female Reproductive:Female: absent: As Per HPI, Amenorrhea, Amenorrhea/ Control, Currently Menstual, Cycle <21 Days, Cycle >35 Days, Cycle Variable, Menses 1-7 Days, Menses >/= 8 Days, Menses Variable, Cycle > 4 Weeks Between, No Menses for 6 Months, Heavy Menses, Light Menses, Normal Menses, Spotting Between Cycles , S/P Hysterectomy, Menopausal, Post Menopausal, Premenarche, Abnormal Vaginal Bleeding, Dysmenorrhea, Dyspareunia, Genital Lesions, Genital Pruritis, Pelvic Pain, Prolapse Symptoms, Sexual Dysfunction, Vaginal Discharge, Vaginal Dryness , Vaginal Odor, Vaginal Pruritis, Other - Menstruation Menstruation: absent: As Per HPI, Amenorrhea, Amenorrhea/ Control, Currently Menstual, Cycle <21 Days, Cycle >35 Days, Cycle Variable, Menses 1-7 Days, Menses >/= 8 Days, Menses Variable, Cycle > 4 Weeks Between, No Menses for 6 Months, Heavy Menses, Light Menses, Normal Menses, Spotting Between Cycles , S/P Hysterectomy, Menopausal, Post Menopausal, Premenarche, Abnormal Vaginal Bleeding, Dysmenorrhea, Other - Musculoskeletal Musculoskeletal: absent: As Per HPI, Abnormal Gait, Arthralgias, Atrophy, Back Pain, Deformity, Joint Swelling, Limited Range of Motion, Loss of Height, Muscle Cramps, Muscle Weakness, Myalgias, Neck Pain, Numbness, Radiating Pain into Limb, Stiffness, Tingling, Other - Integumentary Integumentary: absent: As Per HPI, Acne, Alopecia, Bleeding Lesions, Change in Hair, Change in Nails, Change in Pigmentation, Changing Lesions, Dry Skin, Erythema, Furuncle, Hirsutism, Lesions, New Lesions, Non-Healing Lesions, Photosensitivity, Pruritus, Rash, Skin Pain, Skin Ulcer, Sores, Striae, Swelling , Unusual Bruising, Wounds, Jaundice, Other - Neurological Neurological: absent: As Per HPI, Abnormal Gait, Abnormal Hearing, Abnormal Movements, Abnormal Speech, Behavioral Changes, Burning Sensations, Confusion, Convulsions, Disequilibrium, Dizziness, Numbness, Focal Weakness, Frequent Falls , Headaches, Lack of Coordination, Loss of Vision, Memory Loss, Paresthesias, Radicular Pain, Restless Legs, Sensory Deficit, Syncope, Tingling, Tremor, Vertigo, Weakness, Other Visual Disturbances, Other - Psychiatric Psychiatric: absent: As Per HPI, Abnormal Sleep Pattern, Anhedonia, Anxiety, Auditory Hallucinations, Behavioral Changes, Change in Appetite, Change in Libido, Confusion, Depression, Difficulty Concentrating, Hallucinations, Homicidal Ideation, Hopelessness, Irritability, Memory Loss, Mood Swings, Panic Attacks, Paranoia, Suicidal Ideation, Visual Hallucinations, Tactile Hallucinations, Other - Endocrine Endocrine: absent: As Per HPI, Change in Body Appearance, Change in Libido, Cold Intolorance, Deepening of Voice, Excessive Sweating, Fatigue, Flushing, Heat Intolorance, Increase in Ring/Shoe/Hat Size, Palpitations, Polydipsia, Polyphagia, Polyuria, Other - Hematologic/Lymphatic Hematologic: absent: As Per HPI, Easy Bleeding, Easy Bruising, Lymphadenopathy, Other Past Patient History - Infectious Disease Hx of Infectious Diseases: None - Tetanus Immunizations Tetanus Immunization: Unknown - Past Medical History & Family History Past Medical History?: Yes - Past Social History Smoking Status: Former Smoker - CARDIAC Hx Congestive Heart Failure: Yes Hx Hypercholesterolemia: Yes Hx Hypertension: Yes Hx Peripheral Edema: Yes (+2) - PULMONARY Hx Pneumonia: Yes - NEUROLOGICAL Hx Dementia: Yes - HEENT Hx HEENT Problems: Yes (poor vision, blurred right eye) - RENAL Hx Chronic Kidney Disease: Yes - ENDOCRINE/METABOLIC Hx Hyperthyroidism: No Hx Hypothyroidism: No - HEMATOLOGICAL/ONCOLOGICAL Hx Anemia: Yes - INTEGUMENTARY Hx Dermatological Problems: No - MUSCULOSKELETAL/RHEUMATOLOGICAL Hx Arthritis: No Hx Fractures: No Hx Osteoporosis: No - GASTROINTESTINAL Hx Gall Bladder Disease: No - GENITOURINARY/GYNECOLOGICAL Hx Sexually Transmitted Disorders: No - PSYCHIATRIC Hx Anxiety: Yes Hx Depression: Yes Hx Substance Use: No - SURGICAL HISTORY Hx Cholecystectomy: Yes (04/02/13) - ANESTHESIA Hx Anesthesia: Yes Hx Anesthesia Reactions: No Hx Malignant Hyperthermia: No Meds Allergies/Adverse Reactions: Allergies Allergy/AdvReac Type Severity Reaction Status Date / Time No Known Allergies Allergy Verified 06/18/16 16:03 - Medications Medications: Current Medications Sodium Chloride (Sodium Chloride 0.9%) 1,000 mls @ 80 mls/hr IV .[id number] [facility] Last Admin: 08/08/16 12:51 Dose: 80 mls/hr Cefepime HCl 1 gm/ Dextrose 50 mls @ 100 mls/hr IVPB Q12H [facility] Vancomycin/Sodium Chloride (Vancocin) 1 gm in 200 mls @ 133 mls/hr IVPB DAILY [facility] Stop: 08/13/16 13:31 Last Admin: 08/08/16 12:51 Dose: Not Given Albumin Human (Albumin Human 25% (12.5 Gm/50 Ml)) 50 mls @ 50 mls/hr IV ONCE ONE Stop: 08/08/16 17:59 Last Admin: 08/08/16 16:13 Dose: 50 mls/hr Physical Exam - Constitutional Appears: Toxic, Confused, Cachectic, Chronically Ill - Head Exam Head Exam: ATRAUMATIC, NORMAL INSPECTION, NORMOCEPHALIC - Eye Exam Eye Exam: PERRL. absent: Scleral icterus - ENT Exam ENT Exam: Mucous Membranes Dry, Normal External Ear Exam - Neck Exam Neck exam: Negative for: Lymphadenopathy, Thyromegaly - Respiratory Exam Respiratory Exam: Decreased Breath Sounds, Rhonchi - Cardiovascular Exam Cardiovascular Exam: Tachycardia, REGULAR RHYTHM, +S1, +S2 - GI/Abdominal Exam GI & Abdominal Exam: Diminished Bowel Sounds, Soft. absent: Tenderness - Rectal Exam Rectal Exam: Deferred - Exam Exam: NORMAL INSPECTION - Extremities Exam Extremities exam: Negative for: calf tenderness, pedal edema - Back Exam Back exam: absent: CVA tenderness (L), CVA tenderness (R) - Neurological Exam Neurological exam: Altered - Psychiatric Exam Psychiatric exam: Depressed - Skin Skin Exam: Dry Results - Vital Signs Recent Vital Signs: Last Vital Signs Temp 100.7 F H 08/08/16 14:30 Pulse 97 H 08/08/16 15:37 Resp 20 08/08/16 15:37 BP 112/79 08/08/16 15:37 Pulse Ox 100 08/08/16 14:30 - Labs Result Diagrams: 08/09/16 11:52 08/09/16 11:52 Labs: Laboratory Results - last 24 hr 08/08/16 08/08/16 08/08/16 13:25 14:04 15:13 POC Glucose (mg/dL) 283 H Lactic Acid 1.7 Total Creatine Kinase 31 CK-MB (Mass) 0.29 Troponin I, Quant 0.0940 08/08/16 15:54 POC Glucose (mg/dL) 290 H Lactic Acid Total Creatine Kinase CK-MB (Mass) Troponin I, Quant Assessment & Plan (1) AV fistula occlusion Status: Acute (2) Abdominal pain Status: Acute (3) Acute renal failure syndrome Status: Acute (4) Anemia Status: Acute (5) History of CHF (congestive heart failure) Status: Acute (6) Hypercalcemia associated with chronic dialysis Status: Acute (7) Leukocytosis Status: Acute (8) Uncontrolled diabetes mellitus with complications Status: Acute (9) ESRD (end stage renal disease) on dialysis Status: Chronic (10) HTN (hypertension) Status: Chronic (11) History of CVA (cerebrovascular accident) Status: Chronic - Assessment and Plan (Free Text) Plan: cont iv rx await cultures
[2016-08-08] MEDS ORDERED: Magnesium Oxide 400 mg Tab UD PO STA (17:23)
[2016-08-08 22:06] LABS: RBC URINE 124 /hpf (0-3); RENAL EPITHELIAL 1 /hpf (0-3); URINE BACTERIA MOD (<OCC); URINE BILIRUBIN NEGATIVE (NEGATIVE); URINE COLOR YELLOW (YELLOW); URINE GLUCOSE (UA) 3+ mg/dL (Normal); URINE KETONE NEGATIVE (NEGATIVE); URINE LEUKOCYTE ESTERASE 3+ Leu/uL (Negative); URINE PROTEIN 2+ mg/dL (NEGATIVE); URINE UROBILINOGEN NORMAL mg/dL (0.2-1.0); WBC CLUMPS FEW /hpf; WBC URINE 295 /hpf (0-5)
[2016-08-08 22:07] LABS: URINE BLOOD 3+ (NEGATIVE)
[2016-08-09] MEDS: Sodium Chloride 0.9% 1,000 ML IV SCH ×2 (00:34→02:30)
--- NOTE | 2016-08-09 01:26 | CP.PCM.CON ---
History of Present Illness - History of Present Illness History of Present Illness: Surgery: Dr. Castaneda CC: Sepsis HPI: History obtained by review of medical chart. 51F w. pmh of CVA, DM, HTN, seizure disorder, ESRD ON HD (M,W,F) via [facility] arcadio presents from [facility] for evaluation of generalized weakness, fever. She is unable to provide history /info due to clinical condition. Baseline mental status unknown. Coded sepsis called in ED. NG tube placed. Patient given abx IV. Vanco/Cefepime. Surgery has been consulted for replacement of dialysis access. PMH: depression, ESRD on HD, HTN, hyperlipidemia, DM II, old CVA, hx of seizures Meds: Asa, plavix, floraster, Repaglinide 0.5 mg AC, Oxcarbazepine 300mg PO BID , Gabapentin 100 mg PO TID, Duloxetine 60mg PO daily, Vit C 500 mg PO Daily PSH: cholecystectomy in 2013 NKDA Soc Hx: quit tobacco/etoh use in 2010 Fhx: Non-contributory Review of Systems - Review of Systems Systems not reviewed;Unavailable: Acuity of Condition, Altered Mental Status Past Patient History - Infectious Disease Hx of Infectious Diseases: None - Tetanus Immunizations Tetanus Immunization: Unknown - Past Medical History & Family History Past Medical History?: Yes - Past Social History Smoking Status: Former Smoker - CARDIAC Hx Congestive Heart Failure: Yes Hx Hypercholesterolemia: Yes Hx Hypertension: Yes Hx Peripheral Edema: Yes (+2) - PULMONARY Hx Pneumonia: Yes - NEUROLOGICAL Hx Dementia: Yes - HEENT Hx HEENT Problems: Yes (poor vision, blurred right eye) - RENAL Hx Chronic Kidney Disease: Yes - ENDOCRINE/METABOLIC Hx Hyperthyroidism: No Hx Hypothyroidism: No - HEMATOLOGICAL/ONCOLOGICAL Hx Anemia: Yes - INTEGUMENTARY Hx Dermatological Problems: No - MUSCULOSKELETAL/RHEUMATOLOGICAL Hx Arthritis: No Hx Fractures: No Hx Osteoporosis: No - GASTROINTESTINAL Hx Gall Bladder Disease: No - GENITOURINARY/GYNECOLOGICAL Hx Sexually Transmitted Disorders: No - PSYCHIATRIC Hx Anxiety: Yes Hx Depression: Yes Hx Substance Use: No - SURGICAL HISTORY Hx Cholecystectomy: Yes (04/02/13) - ANESTHESIA Hx Anesthesia: Yes Hx Anesthesia Reactions: No Hx Malignant Hyperthermia: No Has any member of the family had a problem w/ anesthesia?: No Meds Allergies/Adverse Reactions: Allergies Allergy/AdvReac Type Severity Reaction Status Date / Time No Known Allergies Allergy Verified 06/18/16 16:03 - Medications Medications: Current Medications Aspirin (Ecotrin) 81 mg PO DAILY [facility] Last Admin: 08/08/16 19:27 Dose: 81 mg Clopidogrel Bisulfate (Plavix) 75 mg PO DAILY [facility] Last Admin: 08/08/16 19:27 Dose: 75 mg Heparin Sodium (Porcine) (Heparin) 5,000 units SC Q8H [facility] Last Admin: 08/09/16 00:35 Dose: 5,000 units Sodium Chloride (Sodium Chloride 0.9%) 1,000 mls @ 80 mls/hr IV .[id number] [facility] Last Admin: 08/09/16 00:34 Dose: Not Given Cefepime HCl 1 gm/ Dextrose 50 mls @ 100 mls/hr IVPB Q12H [facility] Last Admin: 08/09/16 00:35 Dose: 100 mls/hr Vancomycin/Sodium Chloride (Vancocin) 1 gm in 200 mls @ 133 mls/hr IVPB DAILY [facility] Stop: 08/13/16 13:31 Last Admin: 08/08/16 12:51 Dose: Not Given Lactulose (Enulose) 20 gm PO TID [facility] Physical Exam - Constitutional Appears: Non-toxic, No Acute Distress, Older Than Stated Age, Confused - Head Exam Head Exam: ATRAUMATIC, NORMOCEPHALIC - Eye Exam Eye Exam: EOMI. absent: Scleral icterus - ENT Exam ENT Exam: Mucous Membranes Moist Additional comments: NGT in place, output appears feculent - Neck Exam Neck exam: Positive for: Full Rom - Respiratory Exam Respiratory Exam: NORMAL BREATHING PATTERN. absent: Accessory Muscle Use, Respiratory Distress - GI/Abdominal Exam GI & Abdominal Exam: Soft, Tenderness (mild, diffuse). absent: Distended, Firm , Guarding, Hernia, Rebound, Rigid - Extremities Exam Extremities exam: Negative for: calf tenderness, pedal edema - Neurological Exam Neurological exam: Alert Results - Vital Signs Recent Vital Signs: Last Vital Signs Temp 98 F 08/08/16 23:40 Pulse 94 H 08/08/16 23:40 Resp 20 08/08/16 23:40 BP 143/83 08/08/16 23:40 Pulse Ox 100 08/08/16 23:40 - Labs Result Diagrams: 08/08/16 07:36 08/08/16 08:04 Labs: Laboratory Results - last 24 hr 08/08/16 08/08/16 08/08/16 13:25 14:04 15:13 POC Glucose (mg/dL) 283 H Lactic Acid 1.7 Total Creatine Kinase 31 CK-MB (Mass) 0.29 Troponin I, Quant 0.0940 Urine Color Urine Clarity Urine pH Ur Specific [place] Urine Protein Urine Glucose (UA) Urine Ketones Urine Blood Urine Nitrate Urine Bilirubin Urine Urobilinogen Ur Leukocyte Esterase Urine WBC (Auto) Urine RBC (Auto) Urine WBC Clumps (Auto) Ur Squamous Epith Cells Ur Renal Epithelial Cell Urine Bacteria 08/08/16 08/08/16 08/08/16 15:54 21:24 21:44 POC Glucose (mg/dL) 290 H 189 H Lactic Acid Total Creatine Kinase CK-MB (Mass) Troponin I, Quant Urine Color Yellow Urine Clarity Turbid Urine pH 8.0 Ur Specific [place] 1.012 Urine Protein 2+ H Urine Glucose (UA) 3+ H Urine Ketones Negative Urine Blood 3+ H Urine Nitrate Negative Urine Bilirubin Negative Urine Urobilinogen Normal Ur Leukocyte Esterase 3+ H Urine WBC (Auto) 295 H Urine RBC (Auto) 124 H Urine WBC Clumps (Auto) Few H Ur Squamous Epith Cells 37 H Ur Renal Epithelial Cell 1 Urine Bacteria Mod H 08/08/16 21:44 POC Glucose (mg/dL) Lactic Acid Total Creatine Kinase 39 CK-MB (Mass) < 0.22 Troponin I, Quant 0.0570 Urine Color Urine Clarity Urine pH Ur Specific [place] Urine Protein Urine Glucose (UA) Urine Ketones Urine Blood Urine Nitrate Urine Bilirubin Urine Urobilinogen Ur Leukocyte Esterase Urine WBC (Auto) Urine RBC (Auto) Urine WBC Clumps (Auto) Ur Squamous Epith Cells Ur Renal Epithelial Cell Urine Bacteria - Imaging and Cardiology CT scan - abdomen Status: Image reviewed by me, Report reviewed by me Assessment & Plan - Assessment and Plan (Free Text) Assessment: 41F w. sepsis 2/2 permacath vs. fecal impaction -will need new dialysis access -will likely need disimpaction -continue w. current medical management -further recs per Dr. Castaneda -will d/w attending Priti PGY2
[2016-08-09 12:11] LABS: BASO % 0.2 % (0.0-2.0); LYMPH # 0.7 K/uL (1.0-4.3); LYMPH % 2.6 % (20.0-40.0); MONO # 1.1 K/uL (0.0-0.8)
[2016-08-09 12:15] LABS: CHLORIDE 100 mmol/L (98-107); POTASSIUM 3.8 mmol/L (3.6-5.2); SODIUM 142 mmol/L (132-148)
[2016-08-09 12:17] LABS: AST/SGOT 38 U/L (14-36); BILIRUBIN,TOTAL 1.1 mg/dL (0.2-1.3); CARBON DIOXIDE 24 mmol/L (22-30); CHOLESTEROL 87 mg/dL (0-199); GFR AFRICAN-AMERICAN 13; TOTAL PROTEIN 6.2 g/dL (6.3-8.3)
[2016-08-09 12:18] LABS: ALKALINE PHOSPHATASE 138 U/L (38-126); ALT/SGPT 31 U/L (9-52); BLOOD UREA NITROGEN 45 mg/dL (7-17); CALCIUM 8.5 mg/dl (8.6-10.4); GLUCOSE,RANDOM 110 mg/dL (65-105); MAGNESIUM 2.4 mg/dL (1.6-2.3); PHOSPHOROUS 9.1 mg/dL (2.5-4.5)
[2016-08-09 12:25] LABS: EOS % 0.1 % (0.0-4.0); HEMATOCRIT 36.3 % (34.0-47.0); MEAN CELL VOLUME 100.7 fL (81.0-99.0); MEAN CORPUSCULAR HEMOGLOBIN 31.5 pg (27.0-31.0); MEAN CORPUSCULAR HGB CONC 31.3 g/dL (33.0-37.0); MEAN PLATELET VOLUME 9.7 fL (7.2-11.7); MONO % 3.7 % (0.0-10.0); PLATELET COUNT 191 K/uL (130-400); RED CELL DISTRIBUTION WIDTH 16.5 % (11.5-14.5); WHITE BLOOD COUNT 28.4 K/uL (4.8-10.8)
[2016-08-09] MEDS: Vancomycin 1 gm/NS 200 ml 1 GM/200 ML BAG IVPB SCH (12:38)
[2016-08-09 12:49] LABS: THYROID STIMULATING HORMONE 0.51 mIU/L (0.46-4.68)
[2016-08-09 12:55] LABS: NEUTROPHIL 89 % (50-75); NUCLEATED RED BLOOD CELL 1 % (0-0); TOTAL CELLS COUNTED 100
[2016-08-09] MEDS ORDERED: HEPARIN-NS 5,000 UNITS/500 ML 5,000 UNIT/500 ML BAG IV ONE (12:56)
[2016-08-09] MEDS ORDERED: Lidocaine 1% Inj (20ml) ONE (12:57)
[2016-08-09] MEDS ORDERED: Rocuronium 10 mg/ml (5 ml) ONE (13:16)
[2016-08-09] MEDS ORDERED: Propofol 10 mg/ml Inj (20 ML) ONE (13:18)
--- NOTE | 2016-08-09 13:27 | CP.PCM.PN ---
<Zaida Mercedes - Last Filed: 08/09/16 13:28> Subjective - Date & Time of Evaluation Date of Evaluation: 08/09/16 Time of Evaluation: 07:15 - Subjective Subjective: Patient seen and examined at bedside this morning. She is now able to speak and is oriented to person and place but not to time. She knew her birthday and the city she grew up in. She stated she was in pain but cold not say where. Earlier she said she did not have any pain. She denies fever/chill, chest pain, SOB, or palpitations. She is weak in her extremities from old CVAs. Patient has no other complaints. Per past EMR notes the patient seems to be at baseline mental status compared to yesterday as she was not responsive. Objective - Vital Signs/Intake and Output Vital Signs (last 24 hours): Temp Pulse Resp BP Pulse Ox 99.0 F 89 20 144/56 L 100 08/09/16 08:12 08/09/16 08:12 08/09/16 08:12 08/09/16 08:12 08/09/16 08:12 Intake and Output: 08/09/16 08/09/16 06:59 18:59 Intake Total 1000 Output Total 475 Balance 525 - Medications Medications: Current Medications Aspirin (Ecotrin) 81 mg PO DAILY [facility] Last Admin: 08/09/16 11:36 Dose: Not Given Clopidogrel Bisulfate (Plavix) 75 mg PO DAILY [facility] Last Admin: 08/09/16 09:26 Dose: 75 mg Heparin Sodium (Porcine) (Heparin) 5,000 units SC Q8H [facility] Last Admin: 08/09/16 09:30 Dose: 5,000 units Sodium Chloride (Sodium Chloride 0.9%) 1,000 mls @ 80 mls/hr IV .[id number] [facility] Last Admin: 08/09/16 02:30 Dose: 80 mls/hr Cefepime HCl 1 gm/ Dextrose 50 mls @ 100 mls/hr IVPB Q12H [facility] Last Admin: 08/09/16 12:34 Dose: 100 mls/hr Vancomycin/Sodium Chloride (Vancocin) 1 gm in 200 mls @ 133 mls/hr IVPB DAILY [facility] Stop: 08/13/16 13:31 Last Admin: 08/09/16 12:38 Dose: 133 mls/hr Lactulose (Enulose) 20 gm PO TID [facility] Last Admin: 08/09/16 11:36 Dose: Not Given - Labs Labs: 08/09/16 11:52 08/09/16 11:52 - Constitutional Appears: Non-toxic, No Acute Distress, Chronically Ill - Head Exam Head Exam: ATRAUMATIC, NORMAL INSPECTION - Eye Exam Eye Exam: EOMI - ENT Exam ENT Exam: Mucous Membranes Dry - Respiratory Exam Respiratory Exam: Clear to Ausculation Bilateral, NORMAL BREATHING PATTERN. absent: Respiratory Distress - Cardiovascular Exam Cardiovascular Exam: REGULAR RHYTHM, +S1, +S2 - GI/Abdominal Exam GI & Abdominal Exam: Soft, Tenderness, Normal Bowel Sounds. absent: Distended, Firm, Guarding - Extremities Exam Extremities Exam: Normal Inspection, Pedal Edema - Back Exam Back Exam: NORMAL INSPECTION Additional comments: sacral ulcer - Neurological Exam Neurological Exam: Alert, Awake. absent: Oriented x3 Neuro motor strength exam: Left Upper Extremity: 2/1, Right Upper Extremity: 3, Left Lower Extremity: 3, Right Lower Extremity: 3 - Psychiatric Exam Psychiatric exam: Normal Affect, Normal Mood - Skin Skin Exam: Dry, Intact, Normal Color, Warm Assessment and Plan - Assessment and Plan (Free Text) Assessment: 51F w. pmh of CVA, DM, HTN, seizure disorder, ESRD ON HD (M,W,F) via L IJ permacath presents from [facility] for evaluation of generalized weakness, fever. Plan: Sepsis (code sepsis) Mental status improved. patient now able to communicate. with altered mental status on admission Leukocytosis 28.4 from 30.1 with left shit and 6 bands Blood culture + gram positive cocci - f/u sensitivity VBG (ph 7.29, p02 33, pC02 37, pHCo3 17.5) VBG lactate 2, repeat lactate 1.7 ID consulted, Dr. Martinez - help appreciated ICU eval , Dr. Ansari, no need for ICU admission Urine culture negative EKG - NSR tachycardia, LVH no acute changes Trop negative x 3 Chest X ray - mild right hilar prominence, no infiltrates Head CT - multiple regios of encephalomalacia involving the right frontal lobe, right occipital lobe, and right cerebellar hemisphere. Moderate diffuse generalized atrophy. Enlargement of ventricular system. No acute findings. Similar to previous. (please see full report) Chest/Abd/[place] CT - left sided dialysis catheter extends into right ventricle. Should be repositioned. N tube in stomach. Severe retained colonic fecal material with evidence of impaction involving the rectosigmoid colon. f/u am labs ESRD on dialysis MWF, got dialysis yesterday Dr. Mi consulted, help appreciated Chest/Abd/[place] CT - left sided dialysis catheter extends into right ventricle. Surg consulted, Dr. Castaneda - help appreciated --> for OR today for femoral cath placement Constipation with impaction Chest/Abd/Pevlis CT - left sided dialysis catheter extends into right ventricle. Should be repositioned. N tube in stomach. Severe retained colonic fecal material with evidence of impaction involving the rectosigmoid colon. Mag Oxide PO given through NG tube Fleat enema given Patient had BM Lactulose added For OR today for disimpaction with Dr. Castaneda CVA hx of CVA ASA 81 mg PO daily Plavix 75 mg PO daily Seizures Oxcarbazepine 300mg PO BID - hold f/u serum level seizure/aspiration precautions HLD Trig 154, Chol 87, LDL <30, HDL 14 HTN controlled - normotensive monitor BP Prophylactic Measures NPO - NG tube placed on low suction hold anticoagulation until CT results Nichols in place - monitor In/Outs <Humberto Garcia H - Last Filed: 08/09/16 14:49> Objective - Vital Signs/Intake and Output Vital Signs (last 24 hours): Temp Pulse Resp BP Pulse Ox 99.0 F 89 20 144/56 L 100 08/09/16 08:12 08/09/16 08:12 08/09/16 08:12 08/09/16 08:12 08/09/16 08:12 Intake and Output: 08/09/16 08/09/16 06:59 18:59 Intake Total 1000 Output Total 475 Balance 525 - Medications Medications: Current Medications Aspirin (Ecotrin) 81 mg PO DAILY [facility] Last Admin: 08/09/16 11:36 Dose: Not Given Clopidogrel Bisulfate (Plavix) 75 mg PO DAILY [facility] Last Admin: 08/09/16 09:26 Dose: 75 mg Heparin Sodium (Porcine) (Heparin) 5,000 units SC Q8H [facility] Last Admin: 08/09/16 09:30 Dose: 5,000 units Sodium Chloride (Sodium Chloride 0.9%) 1,000 mls @ 80 mls/hr IV .[id number] [facility] Last Admin: 08/09/16 02:30 Dose: 80 mls/hr Cefepime HCl 1 gm/ Dextrose 50 mls @ 100 mls/hr IVPB Q12H [facility] Last Admin: 08/09/16 12:34 Dose: 100 mls/hr Vancomycin/Sodium Chloride (Vancocin) 1 gm in 200 mls @ 133 mls/hr IVPB DAILY [facility] Stop: 08/13/16 13:31 Last Admin: 08/09/16 12:38 Dose: 133 mls/hr Lactulose (Enulose) 20 gm PO TID [facility] Last Admin: 08/09/16 11:36 Dose: Not Given - Labs Labs: 08/09/16 11:52 08/09/16 11:52 Attending/Attestation - Attestation I have personally seen and examined this patient.: Yes I have fully participated in the care of the patient.: Yes I have reviewed all pertinent clinical information, including history, physical exam and plan: Yes Notes (Text): 08/09/16 14:46 Medical attending: Patient was seen and examined by me, agrees the above note by chief medical director. Today the patient was awake and alert, she knew she was in the hospital but she did not know which hospital she knew the name of her as well as daughter. She is able to tell us her birthday as well as her childhood home. However she's not completely following all commands. As documented before she's had extensive history of CVAs particularly on the right side of her brain. Last night she had hemodialysis done and she was started on IV biotics as well. According to the nurse she had a large bowel movement earlier this morning. The patient remains nothing by mouth, there is about 250 mL of dark purulent like material in the wall suctioning device There is a preliminary blood culture that is positive for gram-positive whether or not this is a contaminant or true infection remains to be seen at this time regardless we do have her on vancomycin and cefepime. We'll continue to try to reach out to the family members again. Per review of further notes it appears that the patient may be back at her baseline mental status. So it might be that she is septic from a line infection, or she had sepsis from a UTI, or she was simply uremic from needing dialysis, or a combination of the above Thank you very much, Humberto Garcia
[2016-08-09] MEDS ORDERED: Sodium Chloride 0.9% 500 ML IV ONE (14:00)
[2016-08-09] MEDS ORDERED: Neostigmine Methylsulfate 3mg/3ml Syringe IV ONE (14:38)
--- NOTE | 2016-08-09 15:24 | PCM.SURG1 ---
Surgeon's Initial Post Op Note - Surgeon's Notes Surgeon: Leonel Inspector Plating: Johana Melgoza Pre-Operative Diagnosis: infected left IJ central line, fecal impaction Operative Findings: central line catheter Post-Operative Diagnosis: fecal impaction, infected central line left IJ Operation Performed: Right IJ permacath insertion, fecal disimpaction Specimen/Specimens Removed: stool Estimated Blood Loss: EBL {In ML}: 5 Date of Surgery/Procedure: 08/09/16 Time of Surgery/Procedure: 13:00
--- NOTE | 2016-08-09 15:50 | RAD ---
PROCEDURE: Intraoperative Fluoroscopy. HISTORY: INFECTED LEFT DIALYSIS CATH FINDINGS: Fluoroscopic assistance was provided for RIGHT CENTRAL VENOUS CATHETER PLACEMENT. Please refer to the operative report from
--- NOTE | 2016-08-09 15:55 | OP ---
PROCEDURE DATE: 08/09/2016 PREOPERATIVE DIAGNOSIS: Gram-positive bacteremia, indwelling catheter. PROCEDURES CARRIED OUT: 1. Placement of PermCath right jugular vein with C-arm fluoroscopy and ultrasound-guided puncture, m icropuncture technique. 2. Removal of left jugular PermCath. 3. Manual disimpaction. SURGEON: Prince Castaneda Jr., MD FIRE WARDEN: , resident ANESTHESIOLOGIST: Mr. The patient is an older woman with multiple medical problems, indwelling catheter left jugular vein. Gram-positive cocci in blood. Suspected to have a catheter-based infection. OPERATIVE FINDINGS: Old catheter was removed. After it was removed, pressure was applied to the sit e. We then, using ultrasound guidance, identified that the right jugular vein was occluded. Using u ltrasound guidance, we then punctured using a micropuncture technique superior portion of the right s ubclavian vein. We then advanced the guidewire centrally. A sheath dilator was passed over this and the usual maneuvers, we deployed a cuffed catheter originating on the right chest wall and terminati ng at the superior vena cava and right atrial junction. This was all prepped, stabilized, finished a nd completed. We then reprepped and draped and disimpacted approximately 5 pounds of stool from the rectum. In addition, it was noted there was a fair amount of vaginal bleeding. The cause for this c ould not be elucidated as at the time we did it, there was so much stool in the rectum, this obscured our entry into the vagina. OPERATION CARRIED OUT: 1. Placement of catheter, right jugular vein with ultrasound and C-arm. 2. Removal of left-sided catheter. 3. Disimpaction. Prince Castaneda Jr., MD cc: 56 TT: 08/09/2016 15:54:27 en
--- NOTE | 2016-08-09 15:57 | RAD ---
HISTORY: s/p right IJ central line COMPARISON: Chest x-ray performed 08/08/26 TECHNIQUE: Chest, one view. FINDINGS: Endotracheal tube terminates approximately 4.9 cm above the kristan. Nasogastric tube extends expected location of the stomach. Right IJ approach dialysis catheter likely terminates within the right atrium. LUNGS: No focal consolidation. Please note that chest x-ray has limited sensitivity for the detection of pulmonary masses. PLEURA: No significant pleural effusion identified. No definite pneumothorax . CARDIOVASCULAR: Heart size appears within normal limits OSSEOUS STRUCTURES: Osseous demineralization. Degenerative changes. VISUALIZED UPPER ABDOMEN: Right upper quadrant surgical clips. Nonspecific bowel gas pattern. OTHER FINDINGS: None. IMPRESSION: Endotracheal tube terminates approximately 4.9 cm above the kristan. Nasogastric tube extends expected location of the stomach. Right IJ approach dialysis catheter likely terminates within the right atrium.
--- NOTE | 2016-08-09 17:25 | CP.PCM.PN ---
Subjective - Date & Time of Evaluation Date of Evaluation: 08/09/16 Time of Evaluation: 09:00 - Subjective Subjective: more awake confused lethargic nad lines changed iv rx in progress Objective - Vital Signs/Intake and Output Vital Signs (last 24 hours): Temp Pulse Resp BP Pulse Ox 98.7 F 88 18 102/66 100 08/09/16 16:53 08/09/16 16:53 08/09/16 16:53 08/09/16 16:53 08/09/16 16:53 Intake and Output: 08/09/16 08/09/16 06:59 18:59 Intake Total 1000 Output Total 475 25 Balance 525 -25 - Medications Medications: Current Medications Aspirin (Ecotrin) 81 mg PO DAILY [facility] Last Admin: 08/09/16 11:36 Dose: Not Given Clopidogrel Bisulfate (Plavix) 75 mg PO DAILY [facility] Last Admin: 08/09/16 09:26 Dose: 75 mg Heparin Sodium (Porcine) (Heparin) 5,000 units SC Q8H [facility] Last Admin: 08/09/16 09:30 Dose: 5,000 units Sodium Chloride (Sodium Chloride 0.9%) 1,000 mls @ 80 mls/hr IV .[id number] [facility] Last Admin: 08/09/16 02:30 Dose: 80 mls/hr Cefepime HCl 1 gm/ Dextrose 50 mls @ 100 mls/hr IVPB Q12H [facility] Last Admin: 08/09/16 12:34 Dose: 100 mls/hr Vancomycin/Sodium Chloride (Vancocin) 1 gm in 200 mls @ 133 mls/hr IVPB DAILY [facility] Stop: 08/13/16 13:31 Last Admin: 08/09/16 12:38 Dose: 133 mls/hr Lactulose (Enulose) 20 gm PO TID [facility] Last Admin: 08/09/16 11:36 Dose: Not Given - Labs Labs: 08/09/16 11:52 08/09/16 11:52 - Constitutional Appears: Toxic, Chronically Ill - Head Exam Head Exam: NORMOCEPHALIC - Eye Exam Eye Exam: PERRL. absent: Scleral icterus - ENT Exam ENT Exam: Mucous Membranes Dry, Normal External Ear Exam - Neck Exam Neck Exam: absent: Lymphadenopathy - Respiratory Exam Respiratory Exam: Decreased Breath Sounds, Rhonchi - Cardiovascular Exam Cardiovascular Exam: REGULAR RHYTHM, +S1, +S2 - GI/Abdominal Exam GI & Abdominal Exam: Distended, Soft. absent: Tenderness - Rectal Exam Rectal Exam: Deferred - Exam Exam: NORMAL INSPECTION - Extremities Exam Extremities Exam: absent: Pedal Edema - Back Exam Back Exam: absent: CVA tenderness (L), CVA tenderness (R) - Neurological Exam Neurological Exam: Alert, Altered, Awake - Psychiatric Exam Psychiatric exam: Depressed - Skin Skin Exam: Dry Assessment and Plan (1) Abdominal pain Status: Acute (2) Acute renal failure syndrome Status: Acute (3) Anemia Status: Acute (4) History of CHF (congestive heart failure) Status: Acute (5) Hypercalcemia associated with chronic dialysis Status: Acute (6) Leukocytosis Status: Acute (7) Uncontrolled diabetes mellitus with complications Status: Acute (8) ESRD (end stage renal disease) on dialysis Status: Chronic (9) HTN (hypertension) Status: Chronic (10) History of CVA (cerebrovascular accident) Status: Chronic - Assessment and Plan (Free Text) Assessment: bacteremia sepsis leukocytosis cont v antibiotics /uti
--- NOTE | 2016-08-10 07:33 | CP.PCM.PN ---
Subjective - Date & Time of Evaluation Date of Evaluation: 08/10/16 Time of Evaluation: 07:30 - Subjective Subjective: Surgery: Dr. Castaneda Pt seen and examined. Resting comfortably in bed. Pt is more alert and coherent today. Pt states that her abd pain is improved compared to yesterday. She denies N/V. She states she had BM. Objective - Vital Signs/Intake and Output Vital Signs (last 24 hours): Temp Pulse Resp BP Pulse Ox 98.3 F 67 20 117/73 98 08/10/16 04:25 08/10/16 04:25 08/10/16 04:25 08/10/16 04:25 08/10/16 04:25 Intake and Output: 08/10/16 08/10/16 06:59 18:59 Intake Total 320 Output Total 0 Balance 320 - Medications Medications: Current Medications Aspirin (Ecotrin) 81 mg PO DAILY [facility] Last Admin: 08/09/16 11:36 Dose: Not Given Clopidogrel Bisulfate (Plavix) 75 mg PO DAILY [facility] Last Admin: 08/09/16 09:26 Dose: 75 mg Heparin Sodium (Porcine) (Heparin) 5,000 units SC Q8H [facility] Last Admin: 08/10/16 00:40 Dose: 5,000 units Sodium Chloride (Sodium Chloride 0.9%) 1,000 mls @ 80 mls/hr IV .[id number] [facility] Last Admin: 08/09/16 02:30 Dose: 80 mls/hr Cefepime HCl 1 gm/ Dextrose 50 mls @ 100 mls/hr IVPB Q12H [facility] Last Admin: 08/10/16 00:36 Dose: 100 mls/hr Vancomycin/Sodium Chloride (Vancocin) 1 gm in 200 mls @ 133 mls/hr IVPB DAILY [facility] Stop: 08/13/16 13:31 Last Admin: 08/09/16 12:38 Dose: 133 mls/hr Lactulose (Enulose) 20 gm PO TID [facility] Last Admin: 08/09/16 17:48 Dose: 20 gm - Labs Labs: 08/09/16 11:52 08/09/16 11:52 - Constitutional Appears: Non-toxic, No Acute Distress, Chronically Ill - Head Exam Head Exam: ATRAUMATIC, NORMOCEPHALIC - Eye Exam Eye Exam: EOMI - ENT Exam ENT Exam: Mucous Membranes Moist - Neck Exam Neck Exam: Full ROM - Respiratory Exam Respiratory Exam: NORMAL BREATHING PATTERN. absent: Accessory Muscle Use, Respiratory Distress - GI/Abdominal Exam GI & Abdominal Exam: Soft, Tenderness (mild). absent: Distended, Firm, Guarding , Rigid, Mass, Rebound - Extremities Exam Extremities Exam: absent: Calf Tenderness, Pedal Edema - Neurological Exam Neurological Exam: Alert, Awake Assessment and Plan - Assessment and Plan (Free Text) Assessment: 51F w. ESRD and sepsis 2/2 bacteremia / UTI / fecal impaction, s/p L IJ permacath removal and placement of R IJ permacath, along w. fecal disimpaction, POD#1 -Ok to use R IJ permacath for dialysis -F/U AM labs -will clamp NGT, will consider removal later today -c/w lactulose, will add colace, monitor bowel fxn -c/w abx -d/w attending Priti PGY2
--- NOTE | 2016-08-10 07:41 | CP.PCM.PN ---
<Susie Byrne - Last Filed: 08/10/16 21:00> Subjective - Date & Time of Evaluation Date of Evaluation: 08/10/16 Time of Evaluation: 09:30 - Subjective Subjective: PGY1 Medicine note for Dr. Garcia Patient seen and examined at bedside. As per [facility] patient baseline is AO x 1. Patient this AM was AO x 0- believed she was [place] [facility]. Patent is alert and able to answer some ROS- she reported feeling better but was still having abdominal pain. Patient had her NGT in place and clamped when I saw her. She is due for HD today. Complete ROS unobtainable/unreliable. Objective - Vital Signs/Intake and Output Vital Signs (last 24 hours): Temp Pulse Resp BP Pulse Ox 98.3 F 67 20 117/73 98 08/10/16 04:25 08/10/16 04:25 08/10/16 04:25 08/10/16 04:25 08/10/16 04:25 Intake and Output: 08/10/16 08/10/16 06:59 18:59 Intake Total 320 Output Total 0 Balance 320 - Medications Medications: Current Medications Aspirin (Ecotrin) 81 mg PO DAILY [facility] Last Admin: 08/09/16 11:36 Dose: Not Given Clopidogrel Bisulfate (Plavix) 75 mg PO DAILY [facility] Last Admin: 08/09/16 09:26 Dose: 75 mg Docusate Sodium (Colace) 100 mg PO TID [facility] Heparin Sodium (Porcine) (Heparin) 5,000 units SC Q8H [facility] Last Admin: 08/10/16 00:40 Dose: 5,000 units Sodium Chloride (Sodium Chloride 0.9%) 1,000 mls @ 80 mls/hr IV .[id number] [facility] Last Admin: 08/09/16 02:30 Dose: 80 mls/hr Cefepime HCl 1 gm/ Dextrose 50 mls @ 100 mls/hr IVPB Q12H [facility] Last Admin: 08/10/16 00:36 Dose: 100 mls/hr Vancomycin/Sodium Chloride (Vancocin) 1 gm in 200 mls @ 133 mls/hr IVPB DAILY [facility] Stop: 08/13/16 13:31 Last Admin: 08/09/16 12:38 Dose: 133 mls/hr Lactulose (Enulose) 20 gm PO TID [facility] Last Admin: 08/09/16 17:48 Dose: 20 gm - Labs Labs: 08/09/16 11:52 08/09/16 11:52 - Constitutional Appears: Non-toxic, No Acute Distress, Chronically Ill - Head Exam Head Exam: ATRAUMATIC, NORMAL INSPECTION, NORMOCEPHALIC - Eye Exam Eye Exam: Normal appearance. absent: Conjunctival injection, Scleral icterus - ENT Exam ENT Exam: Mucous Membranes Dry - Neck Exam Neck Exam: Normal Inspection - Respiratory Exam Respiratory Exam: Clear to Ausculation Bilateral, NORMAL BREATHING PATTERN. absent: Accessory Muscle Use, Rales, Rhonchi, Wheezes, Respiratory Distress - Cardiovascular Exam Cardiovascular Exam: REGULAR RHYTHM, +S1, +S2 - GI/Abdominal Exam GI & Abdominal Exam: Soft, Tenderness (mild), Normal Bowel Sounds. absent: Distended - Extremities Exam Extremities Exam: absent: Pedal Edema - Neurological Exam Neurological Exam: Alert, Awake. absent: Oriented x3 - Psychiatric Exam Psychiatric exam: Flat Affect - Skin Skin Exam: Dry, Intact, Normal Color, Warm Assessment and Plan - Assessment and Plan (Free Text) Assessment: 51 year old female PMHx CVA, DM, HTN, ESRD ON HD (M,W,F) seizure disorder BIBA from long-term for fever, chills, and generalized weakness Plan: Sepsis (code sepsis) Mental status improved. patient now able to communicate Blood culture + gram positive cocci - f/u sensitivity VBG (ph 7.29, p02 33, pC02 37, pHCo3 17.5) VBG lactate 2, repeat lactate 1.7 Urine culture negative EKG - NSR tachycardia, LVH no acute changes Trop negative x 3 Chest X ray - mild right hilar prominence, no infiltrates Head CT - multiple regios of encephalomalacia involving the right frontal lobe, right occipital lobe, and right cerebellar hemisphere. Moderate diffuse generalized atrophy. Enlargement of ventricular system. No acute findings. Similar to previous. (please see full report) Chest/Abd/Pevlis CT - left sided dialysis catheter extends into right ventricle. Should be repositioned. N tube in stomach. Severe retained colonic fecal material with evidence of impaction involving the rectosigmoid colon. Cefepime 1gm IVPB Q12 Vancomycin 1gm IVPB Qdaily NS @ 80cc/hr ID consulted, Dr. Martinez - help appreciated ESRD on dialysis MWF, got dialysis yesterday Dr. Mi consulted, help appreciated Chest/Abd/Pevlis CT - left sided dialysis catheter extends into right ventricle R IJ permacath placed by Dr. Castaneda 08/10 - okay to use as per surgery Constipation s/p disimpaction Chest/Abd/Pevlis CT - left sided dialysis catheter extends into right ventricle. Should be repositioned. N tube in stomach. Severe retained colonic fecal material with evidence of impaction involving the rectosigmoid colon. Colace 100mg po tid Fleat enema given Patient had BM Lactulose added Surgery: Dr. Castaneda CVA hx of CVA ASA 81 mg PO daily Plavix 75 mg PO daily Seizures Oxcarbazepine 300mg PO BID - hold f/u serum level seizure/aspiration precautions HLD Trig 154, Chol 87, LDL <30, HDL 14 HTN controlled - normotensive monitor BP Prophylactic Measures NGT removed by surgery Nichols in place - monitor In/Outs SCD c/i <Humberto Garcia H - Last Filed: 08/11/16 11:00> Objective - Vital Signs/Intake and Output Vital Signs (last 24 hours): Temp Pulse Resp BP Pulse Ox 98.9 F 75 18 130/74 98 08/11/16 09:52 08/11/16 09:52 08/11/16 09:52 08/11/16 09:52 08/11/16 09:52 Intake and Output: 08/11/16 08/11/16 06:59 18:59 Intake Total 960 Output Total 50 Balance 910 - Medications Medications: Current Medications Aspirin (Ecotrin) 81 mg PO DAILY [facility] Last Admin: 08/10/16 12:55 Dose: 81 mg Clopidogrel Bisulfate (Plavix) 75 mg PO DAILY [facility] Last Admin: 08/10/16 12:55 Dose: 75 mg Docusate Sodium (Colace) 100 mg PO TID [facility] Last Admin: 08/10/16 17:41 Dose: Not Given Heparin Sodium (Porcine) (Heparin) 5,000 units SC Q8H [facility] Last Admin: 08/10/16 18:12 Dose: Not Given Sodium Chloride (Sodium Chloride 0.9%) 1,000 mls @ 80 mls/hr IV .[id number] [facility] Last Admin: 08/09/16 02:30 Dose: 80 mls/hr Cefepime HCl 1 gm/ Dextrose 50 mls @ 100 mls/hr IVPB Q12H [facility] Last Admin: 08/10/16 15:03 Dose: 100 mls/hr Vancomycin/Sodium Chloride (Vancocin) 1 gm in 200 mls @ 133 mls/hr IVPB DAILY [facility] Stop: 08/13/16 13:31 Last Admin: 08/10/16 12:56 Dose: 133 mls/hr Dextrose/Sodium Chloride (Dextrose 5%/0.9% Ns 1000 Ml) 1,000 mls @ 80 mls/hr IV .[id number] [facility] Lactulose (Enulose) 20 gm PO TID [facility] Last Admin: 08/10/16 17:41 Dose: Not Given - Labs Labs: 08/11/16 07:11 08/11/16 07:11 Attending/Attestation - Attestation I have personally seen and examined this patient.: Yes I have fully participated in the care of the patient.: Yes I have reviewed all pertinent clinical information, including history, physical exam and plan: Yes Notes (Text): 08/11/16 10:53 Medical Attending: Patient was seen and examined by me. Agree with the above note by the resident. The patient underwent change of her dialysis access as well as disimpaction of bowel. Today was awake and alert - however AAOx1. This does seem to be her baseline mental status as per clarification with the [facility]. The patient on exam answers some questions but not all. As mentioned before has a lot of weakness. Muscle strength is about 1/5 bilaterally in upper extremities. Currently continued with IV abx at this time the cultures show only 1 bottle that is a preliminary gram positive growth. Other one is negative. On cefepime at this time. thank you Humberto Garcia
[2016-08-10] MEDS: Vancomycin 1 gm/NS 200 ml 1 GM/200 ML BAG IVPB SCH (12:56)
--- NOTE | 2016-08-10 20:05 | CARD ---
APPROVED REPORT EKG Measurement Heart [id number] <Conclusion> Normal sinus rhythm Left axis deviation Abnormal ECG
[2016-08-10] MEDS ORDERED: Dextrose 5%/0.9% NS 1,000 ML IV SCH (23:30)
[2016-08-11 07:30] LABS: BASO # 0.1 K/uL (0.0-0.2); BASO % 0.4 % (0.0-2.0); EOS # 0.1 K/uL (0.0-0.7); EOS % 0.5 % (0.0-4.0); HEMATOCRIT 32.9 % (34.0-47.0); LYMPH # 0.8 K/uL (1.0-4.3); LYMPH % 5.3 % (20.0-40.0); MEAN CELL VOLUME 100.1 fL (81.0-99.0); MEAN CORPUSCULAR HEMOGLOBIN 31.6 pg (27.0-31.0); MEAN CORPUSCULAR HGB CONC 31.6 g/dL (33.0-37.0); MEAN PLATELET VOLUME 10.6 fL (7.2-11.7); MONO # 0.8 K/uL (0.0-0.8); MONO % 5.6 % (0.0-10.0); PLATELET COUNT 165 K/uL (130-400); RED CELL DISTRIBUTION WIDTH 16.4 % (11.5-14.5); WHITE BLOOD COUNT 14.5 K/uL (4.8-10.8)
[2016-08-11 07:59] LABS: POTASSIUM 3.3 mmol/L (3.6-5.2)
[2016-08-11 08:02] LABS: ALB/GLOB RATIO 0.9 (1.0-2.1); BILIRUBIN,TOTAL 0.9 mg/dL (0.2-1.3); CALCIUM 8.4 mg/dl (8.6-10.4); TOTAL PROTEIN 5.9 g/dL (6.3-8.3)
[2016-08-11 08:03] LABS: MAGNESIUM 2.2 mg/dL (1.6-2.3)
[2016-08-11 09:17] LABS: NEUTROPHIL 83 % (50-75); TOTAL CELLS COUNTED 100
[2016-08-11 09:20] LABS: LARGE PLATELETS PRESENT
--- NOTE | 2016-08-11 11:13 | CP.PCM.PN ---
Subjective - Date & Time of Evaluation Date of Evaluation: 08/11/16 Time of Evaluation: 09:00 - Subjective Subjective: Patient was seen and examined by me. She was more awake it seemed. She was answering more questions it seemed. Following more commands such as sticking out her tounge for example. However limited ability with the upper extremities which maybe a baseline. As before she remains AAO x 1 Now has NGT out. She is S/P change of the HD cathter. Her WBC has now decreased to 14. On IV vancomycin and IV cefepime. Objective - Vital Signs/Intake and Output Vital Signs (last 24 hours): Temp Pulse Resp BP Pulse Ox 98.9 F 75 18 130/74 98 08/11/16 09:52 08/11/16 09:52 08/11/16 09:52 08/11/16 09:52 08/11/16 09:52 Intake and Output: 08/11/16 08/11/16 06:59 18:59 Intake Total 960 Output Total 50 Balance 910 - Medications Medications: Current Medications Aspirin (Ecotrin) 81 mg PO DAILY [facility] Last Admin: 08/10/16 12:55 Dose: 81 mg Clopidogrel Bisulfate (Plavix) 75 mg PO DAILY [facility] Last Admin: 08/10/16 12:55 Dose: 75 mg Docusate Sodium (Colace) 100 mg PO TID [facility] Last Admin: 08/10/16 17:41 Dose: Not Given Heparin Sodium (Porcine) (Heparin) 5,000 units SC Q8H [facility] Last Admin: 08/10/16 18:12 Dose: Not Given Sodium Chloride (Sodium Chloride 0.9%) 1,000 mls @ 80 mls/hr IV .[id number] [facility] Last Admin: 08/09/16 02:30 Dose: 80 mls/hr Cefepime HCl 1 gm/ Dextrose 50 mls @ 100 mls/hr IVPB Q12H [facility] Last Admin: 08/10/16 15:03 Dose: 100 mls/hr Vancomycin/Sodium Chloride (Vancocin) 1 gm in 200 mls @ 133 mls/hr IVPB DAILY [facility] Stop: 08/13/16 13:31 Last Admin: 08/10/16 12:56 Dose: 133 mls/hr Dextrose/Sodium Chloride (Dextrose 5%/0.9% Ns 1000 Ml) 1,000 mls @ 80 mls/hr IV .[id number] [facility] Lactulose (Enulose) 20 gm PO TID [facility] Last Admin: 08/10/16 17:41 Dose: Not Given - Labs Labs: 08/11/16 07:11 08/11/16 07:11 - Constitutional Appears: No Acute Distress, Unkempt, Older Than Stated Age, Confused, Chronically Ill, Other - Head Exam Head Exam: NORMAL INSPECTION - Eye Exam Eye Exam: EOMI - ENT Exam ENT Exam: Mucous Membranes Moist - Respiratory Exam Respiratory Exam: Clear to Ausculation Bilateral, NORMAL BREATHING PATTERN - Cardiovascular Exam Cardiovascular Exam: REGULAR RHYTHM - GI/Abdominal Exam GI & Abdominal Exam: Soft, Normal Bowel Sounds - Neurological Exam Neurological Exam: Alert, Altered, Awake. absent: CN II-XII Intact, Normal Gait , Oriented x3 Neuro motor strength exam: Left Upper Extremity: 2/1, Right Upper Extremity: 2/1 - Psychiatric Exam Psychiatric exam: Depressed, Flat Affect - Skin Skin Exam: Normal Color, Warm Assessment and Plan - Assessment and Plan (Free Text) Assessment: 51 year old female PMHx CVA, DM, HTN, ESRD ON HD (M,W,F) seizure disorder BIBA from skilled nursing for fever, chills, and generalized weakness Plan: Sepsis (code sepsis) 08/11: WBC now decreased to 14, down from 21. The only positive culture as of now is one bottle that is a gram positive. On Vancomycin and Cefepime at this time. Mental status improved. patient now able to communicate Blood culture + gram positive cocci - f/u sensitivity VBG (ph 7.29, p02 33, pC02 37, pHCo3 17.5) VBG lactate 2, repeat lactate 1.7 Urine culture negative EKG - NSR tachycardia, LVH no acute changes Trop negative x 3 Chest X ray - mild right hilar prominence, no infiltrates Head CT - multiple regios of encephalomalacia involving the right frontal lobe, right occipital lobe, and right cerebellar hemisphere. Moderate diffuse generalized atrophy. Enlargement of ventricular system. No acute findings. Similar to previous. (please see full report) Chest/Abd/Pevlis CT - left sided dialysis catheter extends into right ventricle. Should be repositioned. N tube in stomach. Severe retained colonic fecal material with evidence of impaction involving the rectosigmoid colon. Cefepime 1gm IVPB Q12 Vancomycin 1gm IVPB Qdaily NS @ 80cc/hr ID consulted, Dr. Martinez - help appreciated ESRD 08/11: She had a change in the HD cathter on 08/10 on dialysis MWF, got dialysis yesterday Dr. Mi consulted, help appreciated Chest/Abd/Pevlis CT - left sided dialysis catheter extends into right ventricle R IJ permacath placed by Dr. Castaneda 08/10 - okay to use as per surgery Constipation s/p disimpaction Chest/Abd/Pevlis CT - left sided dialysis catheter extends into right ventricle. Should be repositioned. N tube in stomach. Severe retained colonic fecal material with evidence of impaction involving the rectosigmoid colon. Colace 100mg po tid Fleat enema given Patient had BM Lactulose added Surgery: Dr. Castaneda History of CVA with extensive right brain damage 08/11: Per review of notes it appears her baseline mental status is AAO x 1. Answering very very simple questions. Patient will need another swallow eval. NGT is now out. hx of CVA ASA 81 mg PO daily Plavix 75 mg PO daily Seizures Oxcarbazepine 300mg PO BID - hold f/u serum level seizure/aspiration precautions HLD Trig 154, Chol 87, LDL <30, HDL 14 HTN controlled - normotensive monitor BP Prophylactic Measures NGT removed by surgery Nichols in place - monitor In/Outs SCD c/i
--- NOTE | 2016-08-11 11:31 | CP.PCM.PN ---
Subjective - Date & Time of Evaluation Date of Evaluation: 08/11/16 Time of Evaluation: 11:29 - Subjective Subjective: Surgery: Dr. Castaneda Pt seen and examined. Resting comfortably in bed. Abd pain resolved. Having BMs. Received dialysis yesterday w. new permacath. Objective - Vital Signs/Intake and Output Vital Signs (last 24 hours): Temp Pulse Resp BP Pulse Ox 98.9 F 75 18 130/74 98 08/11/16 09:52 08/11/16 09:52 08/11/16 09:52 08/11/16 09:52 08/11/16 09:52 Intake and Output: 08/11/16 08/11/16 06:59 18:59 Intake Total 960 Output Total 50 Balance 910 - Medications Medications: Current Medications Aspirin (Ecotrin) 81 mg PO DAILY [facility] Last Admin: 08/10/16 12:55 Dose: 81 mg Clopidogrel Bisulfate (Plavix) 75 mg PO DAILY [facility] Last Admin: 08/10/16 12:55 Dose: 75 mg Docusate Sodium (Colace) 100 mg PO TID [facility] Last Admin: 08/10/16 17:41 Dose: Not Given Heparin Sodium (Porcine) (Heparin) 5,000 units SC Q8H [facility] Last Admin: 08/10/16 18:12 Dose: Not Given Sodium Chloride (Sodium Chloride 0.9%) 1,000 mls @ 80 mls/hr IV .[id number] [facility] Last Admin: 08/09/16 02:30 Dose: 80 mls/hr Cefepime HCl 1 gm/ Dextrose 50 mls @ 100 mls/hr IVPB Q12H [facility] Last Admin: 08/10/16 15:03 Dose: 100 mls/hr Vancomycin/Sodium Chloride (Vancocin) 1 gm in 200 mls @ 133 mls/hr IVPB DAILY [facility] Stop: 08/13/16 13:31 Last Admin: 08/10/16 12:56 Dose: 133 mls/hr Dextrose/Sodium Chloride (Dextrose 5%/0.9% Ns 1000 Ml) 1,000 mls @ 80 mls/hr IV .[id number] [facility] Lactulose (Enulose) 20 gm PO TID [facility] Last Admin: 08/10/16 17:41 Dose: Not Given - Labs Labs: 08/11/16 07:11 08/11/16 07:11 - Constitutional Appears: Non-toxic, No Acute Distress - Head Exam Head Exam: ATRAUMATIC, NORMOCEPHALIC - Eye Exam Eye Exam: EOMI - ENT Exam ENT Exam: Mucous Membranes Moist - Neck Exam Neck Exam: Full ROM - Respiratory Exam Respiratory Exam: NORMAL BREATHING PATTERN. absent: Accessory Muscle Use, Respiratory Distress - GI/Abdominal Exam GI & Abdominal Exam: Soft. absent: Distended, Firm, Guarding, Rigid, Tenderness , Rebound - Extremities Exam Extremities Exam: absent: Calf Tenderness, Pedal Edema - Neurological Exam Neurological Exam: Alert, Awake Assessment and Plan - Assessment and Plan (Free Text) Assessment: 51F w. ESRD and sepsis 2/2 bacteremia / UTI / fecal impaction, s/p L IJ permacath removal and placement of R IJ permacath, along w. fecal disimpaction, POD#2 -c/w lactulose, and colace, monitor bowel fxn -c/w abx -start on PO diet once pt passes swallow eval -no further plans for surgical intervention at this time -d/w attending Consueloitis PGY2
[2016-08-11] MEDS: Vancomycin 1 gm/NS 200 ml 1 GM/200 ML BAG IVPB SCH (11:37)
--- NOTE | 2016-08-11 18:28 | CP.PCM.PN ---
Subjective - Date & Time of Evaluation Date of Evaluation: 08/11/16 Time of Evaluation: 15:00 - Subjective Subjective: Follow up Nephrology Consultation Note Assessment: End stage renal disease on hemodialysis (MWF) via permacath with [facility] Bacteremia s/p permacath change Anemia, severe Hyperphosphatemia ? worsened due to fleet enema, Secondary hyperparathyroidism, HTN Fecal Impaction Hypokalemia Plan: No acute need for dialysis today. Will plan for dialysis saturday. Continue with Nephrovite 1 tab/day. PRBC as needed for anemia. added RAJWINDER as Epogen 4000 unit with HD, last Hb 10.4 resume phos binders Renagel 800 mg TID with meals once orally accepting last phos level 6.0 BP control with meds as ordered. Patient not on RAAS shad as BP already controlled. may add it if needed Glycemic control, Dialysis consistent diet IVF lowered to 50 ml/hr due to her ESRD status. Further work up/management as per primary team Dose meds/antibiotics (if needed) for ESRD status. Please avoid fleets enema/ magnesium based laxatives. Thanks for allowing me to participate in care of your patient. Will follow patient with you. Please call if any Qs Dr Kg Storey Office: [phone] Subjective: Noted events overnight. Patients not much communicative Physical Examination: General Appearance: Comfortable, in no acute respiratory distress, co- operative. Vitals reviewed and noted as below Lungs: Normal respiratory rate/effort. Breath sounds bilateral equal and clear Heart: Normal rate. s1s2 normal. No rub or gallop. Extremities: no edema. Neurological: Patient is alert, awake but not much communicative Skin: Warm and dry. Normal turgor. No rash. Palpitation: Normal elasticity for age Abdomen: Abdomen is soft. Bowel sounds +. There is no abdominal tenderness, no guarding/rigidity or organomegaly : kidney or bladder not palpable Access: permacath Labs/imaging reviewed. Past medical history, past surgical history, family history, social history, allergy reviewed Objective - Vital Signs/Intake and Output Vital Signs (last 24 hours): Temp Pulse Resp BP Pulse Ox 98.9 F 75 18 130/74 98 08/11/16 09:52 08/11/16 09:52 08/11/16 09:52 08/11/16 09:52 08/11/16 09:52 Intake and Output: 08/11/16 08/11/16 06:59 18:59 Intake Total 960 Output Total 50 Balance 910 - Medications Medications: Current Medications Aspirin (Ecotrin) 81 mg PO DAILY [facility] Last Admin: 08/11/16 11:33 Dose: Not Given Clopidogrel Bisulfate (Plavix) 75 mg PO DAILY [facility] Last Admin: 08/10/16 12:55 Dose: 75 mg Docusate Sodium (Colace) 100 mg PO TID [facility] Last Admin: 08/11/16 14:40 Dose: Not Given Epoetin Nemesio (Procrit) 4,000 unit IV MWF [facility] Heparin Sodium (Porcine) (Heparin) 5,000 units SC Q8H [facility] Last Admin: 08/10/16 18:12 Dose: Not Given Cefepime HCl 1 gm/ Dextrose 50 mls @ 100 mls/hr IVPB Q12H [facility] Last Admin: 08/11/16 11:37 Dose: 100 mls/hr Vancomycin/Sodium Chloride (Vancocin) 1 gm in 200 mls @ 133 mls/hr IVPB DAILY [facility] Stop: 08/13/16 13:31 Last Admin: 08/11/16 11:37 Dose: 133 mls/hr Dextrose/Sodium Chloride (Dextrose 5%/0.9% Ns 1000 Ml) 1,000 mls @ 50 mls/hr IV .Q20H [facility] Lactulose (Enulose) 20 gm PO TID [facility] Last Admin: 08/11/16 14:40 Dose: Not Given Vitamin B Complex/Vit C/Folic Acid (Nephro-Yu) 1 tab PO DAILY [facility] - Labs Labs: 08/11/16 07:11 08/11/16 07:11
[2016-08-11] MEDS: Dextrose 5%/0.9% NS 1,000 ML IV SCH (18:55)
[2016-08-12 08:12] LABS: BASO % 0.3 % (0.0-2.0); EOS # 0.1 K/uL (0.0-0.7); EOS % 1.2 % (0.0-4.0); HEMATOCRIT 34.3 % (34.0-47.0); LYMPH # 0.8 K/uL (1.0-4.3); LYMPH % 7.1 % (20.0-40.0); MEAN CELL VOLUME 100.2 fL (81.0-99.0); MEAN CORPUSCULAR HEMOGLOBIN 31.4 pg (27.0-31.0); MEAN CORPUSCULAR HGB CONC 31.3 g/dL (33.0-37.0); MEAN PLATELET VOLUME 10.5 fL (7.2-11.7); MONO # 0.7 K/uL (0.0-0.8); MONO % 6.4 % (0.0-10.0); PLATELET COUNT 150 K/uL (130-400); RED CELL DISTRIBUTION WIDTH 16.5 % (11.5-14.5); WHITE BLOOD COUNT 11.7 K/uL (4.8-10.8)
[2016-08-12 08:27] LABS: CHLORIDE 103 mmol/L (98-107)
[2016-08-12 08:28] LABS: POTASSIUM 3.1 mmol/L (3.6-5.2); SODIUM 142 mmol/L (132-148)
[2016-08-12 08:29] LABS: AST/SGOT 57 U/L (14-36); BILIRUBIN,TOTAL 0.9 mg/dL (0.2-1.3); CARBON DIOXIDE 23 mmol/L (22-30); GFR AFRICAN-AMERICAN 11; TOTAL PROTEIN 5.7 g/dL (6.3-8.3)
[2016-08-12 08:30] LABS: ALB/GLOB RATIO 0.9 (1.0-2.1); ALKALINE PHOSPHATASE 126 U/L (38-126); ALT/SGPT 38 U/L (9-52); BLOOD UREA NITROGEN 41 mg/dL (7-17); CALCIUM 8.3 mg/dl (8.6-10.4); GLUCOSE,RANDOM 100 mg/dL (65-105); IRON 27 ug/dL (37-170); MAGNESIUM 2.2 mg/dL (1.6-2.3); PHOSPHOROUS 6.5 mg/dL (2.5-4.5)
[2016-08-12] MEDS ORDERED: Potassium Chloride 20 mEq ER Tab PO ONE (08:30)
--- NOTE | 2016-08-12 08:38 | CP.PCM.PN ---
Subjective - Date & Time of Evaluation Date of Evaluation: 08/12/16 Time of Evaluation: 07:10 - Subjective Subjective: Medicine Note- Hospitalist Service Patient was seen and examined at bedside. Patient reports no acute complaints at this time. She is oriented to self, not to time and place. No events overnight per nursing. Objective - Vital Signs/Intake and Output Vital Signs (last 24 hours): Temp Pulse Resp BP Pulse Ox 97.5 F L 61 20 165/84 H 99 08/12/16 08:26 08/12/16 08:26 08/12/16 08:26 08/12/16 08:26 08/12/16 08:26 Intake and Output: 08/12/16 08/12/16 06:59 18:59 Intake Total 800 Output Total 1 Balance 799 - Medications Medications: Current Medications Aspirin (Ecotrin) 81 mg PO DAILY [facility] Last Admin: 08/11/16 11:33 Dose: Not Given Clopidogrel Bisulfate (Plavix) 75 mg PO DAILY [facility] Last Admin: 08/10/16 12:55 Dose: 75 mg Docusate Sodium (Colace) 100 mg PO TID [facility] Last Admin: 08/11/16 18:00 Dose: Not Given Epoetin Nemesio (Procrit) 4,000 unit IV MWF [facility] Heparin Sodium (Porcine) (Heparin) 5,000 units SC Q8H [facility] Last Admin: 08/10/16 18:12 Dose: Not Given Cefepime HCl 1 gm/ Dextrose 50 mls @ 100 mls/hr IVPB Q12H [facility] Last Admin: 08/12/16 00:15 Dose: 100 mls/hr Vancomycin/Sodium Chloride (Vancocin) 1 gm in 200 mls @ 133 mls/hr IVPB DAILY [facility] Stop: 08/13/16 13:31 Last Admin: 08/11/16 11:37 Dose: 133 mls/hr Dextrose/Sodium Chloride (Dextrose 5%/0.9% Ns 1000 Ml) 1,000 mls @ 50 mls/hr IV .Q20H [facility] Last Admin: 08/11/16 18:55 Dose: 50 mls/hr Lactulose (Enulose) 20 gm PO TID [facility] Last Admin: 08/11/16 18:00 Dose: Not Given Potassium Chloride (K-Dur 20 Meq Er Tab) 40 meq PO ONCE ONE Stop: 08/12/16 08:31 Vitamin B Complex/Vit C/Folic Acid (Nephro-Yu) 1 tab PO DAILY [facility] - Labs Labs: 08/12/16 07:56 08/12/16 07:56 - Constitutional Appears: Non-toxic, No Acute Distress - Head Exam Head Exam: ATRAUMATIC, NORMAL INSPECTION, NORMOCEPHALIC - Eye Exam Pupil Exam: NORMAL ACCOMODATION - ENT Exam ENT Exam: Mucous Membranes Moist - Respiratory Exam Respiratory Exam: Clear to Ausculation Bilateral, NORMAL BREATHING PATTERN. absent: Prolonged Expiratory Phase, Rales, Rhonchi, Wheezes - Cardiovascular Exam Cardiovascular Exam: REGULAR RHYTHM, Murmur - GI/Abdominal Exam GI & Abdominal Exam: Soft, Normal Bowel Sounds. absent: Tenderness, Diminished Bowel Sounds, Hyperactive Bowel Sounds, Hypoactive Bowel Sounds, Pulsatile Mass - Extremities Exam Extremities Exam: Normal Capillary Refill - Neurological Exam Neurological Exam: Alert, Awake. absent: Oriented x3 - Psychiatric Exam Psychiatric exam: Normal Affect, Normal Mood - Skin Skin Exam: Dry, Intact, Normal Color, Warm Assessment and Plan - Assessment and Plan (Free Text) Assessment: Sepsis (code sepsis) 08/12 WBC decreased to 11.7, left shift. Blood culture shows coag neg staph in one bottle, second bottle shows no growth after 3 days 08/11: WBC now decreased to 14, down from 21. The only positive culture as of now is one bottle that is a gram positive. On Vancomycin and Cefepime at this time. Mental status improved. patient now able to communicate Blood culture + gram positive cocci - f/u sensitivity VBG (ph 7.29, p02 33, pC02 37, pHCo3 17.5) VBG lactate 2, repeat lactate 1.7 Urine culture negative EKG - NSR tachycardia, LVH no acute changes Trop negative x 3 Chest X ray - mild right hilar prominence, no infiltrates Head CT - multiple regios of encephalomalacia involving the right frontal lobe, right occipital lobe, and right cerebellar hemisphere. Moderate diffuse generalized atrophy. Enlargement of ventricular system. No acute findings. Similar to previous. (please see full report) Chest/Abd/Pevlis CT - left sided dialysis catheter extends into right ventricle. Should be repositioned. N tube in stomach. Severe retained colonic fecal material with evidence of impaction involving the rectosigmoid colon. Cefepime 1gm IVPB Q12 Vancomycin 1gm IVPB Qdaily NS @ 80cc/hr ID consulted, Dr. Martinez - help appreciated ESRD D5 NS @ 50cc/hr Procrit 4,000U IV MWF Nephro-Yu 1 tab PO Daily on dialysis MWF, got dialysis yesterday Dr. Mi consulted, help appreciated Chest/Abd/Pevlis CT - left sided dialysis catheter extends into right ventricle R IJ permacath placed by Dr. Castaneda 08/09 - okay to use as per surgery Constipation s/p disimpaction Chest/Abd/Pevlis CT - left sided dialysis catheter extends into right ventricle. Should be repositioned. N tube in stomach. Severe retained colonic fecal material with evidence of impaction involving the rectosigmoid colon. Colace 100mg po tid Fleat enema given Patient had BM Lactulose added Surgery: Dr. Castaneda History of CVA with extensive right brain damage 08/12: Swallow eval pending 08/11: Per review of notes it appears her baseline mental status is AAO x 1. Answering very very simple questions. Patient will need another swallow eval. NGT is now out. hx of CVA ASA 81 mg PO daily Plavix 75 mg PO daily Seizures Oxcarbazepine 300mg PO BID - hold 10-Hydroxycarbazepine- 29.5 seizure/aspiration precautions HLD Trig 154, Chol 87, LDL <30, HDL 14 HTN controlled - normotensive monitor BP Prophylactic Measures NGT removed by surgery Nichols in place - monitor In/Outs SCD c/i
[2016-08-12 09:26] LABS: FOLATE > 20.0 ng/mL
--- NOTE | 2016-08-12 09:54 | CP.PCM.PN ---
Subjective - Date & Time of Evaluation Date of Evaluation: 08/12/16 Time of Evaluation: 09:00 - Subjective Subjective: Again the patient was awake, alert, and oriented x 1 only. Pleasant affect. Answering very simple commands. As mentioned before she has a lot of upper extremity weakness. Left side 1/5 and right is 3/5. She needs to have the call doyle placed in her right hand since has no function of the left. This appears to be her baseline. The WBC decreased again to 11. We will recheck blood cultures. The only positive is one bottle from 08/08/16 Objective - Vital Signs/Intake and Output Vital Signs (last 24 hours): Temp Pulse Resp BP Pulse Ox 97.5 F L 61 20 165/84 H 99 08/12/16 08:26 08/12/16 08:26 08/12/16 08:26 08/12/16 08:26 08/12/16 08:26 Intake and Output: 08/12/16 08/12/16 06:59 18:59 Intake Total 800 Output Total 1 Balance 799 - Medications Medications: Current Medications Aspirin (Ecotrin) 81 mg PO DAILY [facility] Last Admin: 08/11/16 11:33 Dose: Not Given Clopidogrel Bisulfate (Plavix) 75 mg PO DAILY [facility] Last Admin: 08/10/16 12:55 Dose: 75 mg Docusate Sodium (Colace) 100 mg PO TID [facility] Last Admin: 08/11/16 18:00 Dose: Not Given Epoetin Nemesio (Procrit) 4,000 unit IV F [facility] Heparin Sodium (Porcine) (Heparin) 5,000 units SC Q8H [facility] Last Admin: 08/10/16 18:12 Dose: Not Given Cefepime HCl 1 gm/ Dextrose 50 mls @ 100 mls/hr IVPB Q12H [facility] Last Admin: 08/12/16 00:15 Dose: 100 mls/hr Vancomycin/Sodium Chloride (Vancocin) 1 gm in 200 mls @ 133 mls/hr IVPB DAILY [facility] Stop: 08/13/16 13:31 Last Admin: 08/11/16 11:37 Dose: 133 mls/hr Dextrose/Sodium Chloride (Dextrose 5%/0.9% Ns 1000 Ml) 1,000 mls @ 50 mls/hr IV .Q20H [facility] Last Admin: 06/03/17 18:55 Dose: 50 mls/hr Lactulose (Enulose) 20 gm PO TID [facility] Last Admin: 08/11/16 18:00 Dose: Not Given Vitamin B Complex/Vit C/Folic Acid (Nephro-Yu) 1 tab PO DAILY [facility] - Labs Labs: 08/12/16 07:56 08/12/16 07:56 - Constitutional Appears: Non-toxic, No Acute Distress, Unkempt, Older Than Stated Age, Confused , Chronically Ill - Eye Exam Eye Exam: Normal appearance - ENT Exam ENT Exam: Mucous Membranes Moist - Respiratory Exam Respiratory Exam: Clear to Ausculation Bilateral, NORMAL BREATHING PATTERN - Cardiovascular Exam Cardiovascular Exam: REGULAR RHYTHM - Neurological Exam Neurological Exam: Abnormal Gait, Alert, Awake. absent: Altered, CN II-XII Intact, Normal Gait, Oriented x3, Reflexes Normal Neuro motor strength exam: Left Upper Extremity: 2/1, Right Upper Extremity: 3 - Psychiatric Exam Psychiatric exam: Depressed, Flat Affect - Skin Skin Exam: Normal Color, Warm Assessment and Plan - Assessment and Plan (Free Text) Assessment: Assessment: 51 year old female PMHx CVA, DM, HTN, ESRD ON HD (M,W,F) seizure disorder BIBA from assisted for fever, chills, and generalized weakness Plan: Sepsis (code sepsis) 08/12: WBC decreased further to 11. Will repeat blood cultures, sputum, etc Continue abx. As mentioned before she had HD cathter change 08/11: WBC now decreased to 14, down from 21. The only positive culture as of now is one bottle that is a gram positive. On Vancomycin and Cefepime at this time. Blood culture + gram positive cocci - f/u sensitivity VBG (ph 7.29, p02 33, pC02 37, pHCo3 17.5) VBG lactate 2, repeat lactate 1.7 Urine culture negative EKG - NSR tachycardia, LVH no acute changes Trop negative x 3 Chest X ray - mild right hilar prominence, no infiltrates Head CT - multiple regios of encephalomalacia involving the right frontal lobe, right occipital lobe, and right cerebellar hemisphere. Moderate diffuse generalized atrophy. Enlargement of ventricular system. No acute findings. Similar to previous. (please see full report) Chest/Abd/Pevlis CT - left sided dialysis catheter extends into right ventricle. Should be repositioned. N tube in stomach. Severe retained colonic fecal material with evidence of impaction involving the rectosigmoid colon. Cefepime 1gm IVPB Q12 Vancomycin 1gm IVPB Qdaily NS @ 80cc/hr ID consulted, Dr. Martinez - help appreciated ESRD 08/11: She had a change in the HD cathter on 08/10 on dialysis MWF, got dialysis yesterday Dr. Mi consulted, help appreciated Chest/Abd/Pevlis CT - left sided dialysis catheter extends into right ventricle R IJ permacath placed by Dr. Castaneda 08/10 - okay to use as per surgery Constipation s/p disimpaction Chest/Abd/Pevlis CT - left sided dialysis catheter extends into right ventricle. Should be repositioned. N tube in stomach. Severe retained colonic fecal material with evidence of impaction involving the rectosigmoid colon. Colace 100mg po tid Fleat enema given Patient had BM Lactulose added Surgery: Dr. Castaneda History of CVA with extensive right brain damage 08/12: Patient appears to be at her baseline 08/11: Per review of notes it appears her baseline mental status is AAO x 1. Answering very very simple questions. Patient will need another swallow eval. NGT is now out. hx of CVA ASA 81 mg PO daily Plavix 75 mg PO daily Seizures 08/12: Because of her mental status we have been holding her Oxcarbazepine 300mg PO BID - hold f/u serum level seizure/aspiration precautions HLD Trig 154, Chol 87, LDL <30, HDL 14 HTN controlled - normotensive monitor BP Prophylactic Measures NGT removed by surgery Nichols in place - monitor In/Outs SCD c/i
[2016-08-12 10:02] LABS: EOSINOPHIL 3 % (0-4); NEUTROPHIL 81 % (50-75); TOTAL CELLS COUNTED 100
[2016-08-12 10:04] LABS: LARGE PLATELETS PRESENT
[2016-08-12] MEDS: Multivitamin Vitamin B Complex (Nephro-Vite) Tab PO SCH (10:26)
[2016-08-12] MEDS: Vancomycin 1 gm/NS 200 ml 1 GM/200 ML BAG IVPB SCH (10:27)
[2016-08-12] MEDS: Dextrose 5%/0.9% NS 1,000 ML IV SCH (14:28)
--- NOTE | 2016-08-12 15:25 | CP.PCM.PN ---
Subjective - Date & Time of Evaluation Date of Evaluation: 08/12/16 Time of Evaluation: 15:24 - Subjective Subjective: Follow up Nephrology Consultation Note Assessment: End stage renal disease on hemodialysis (MWF) via permacath with [facility] Bacteremia s/p permacath change Anemia, severe Hyperphosphatemia ? worsened due to fleet enema, Secondary hyperparathyroidism, HTN Fecal Impaction Hypokalemia Plan: No acute need for dialysis today. Will plan for dialysis saturday. Continue with Nephrovite 1 tab/day. PRBC as needed for anemia. added RAJWINDER as Epogen 4000 unit with HD, last Hb 10.7. TSAT 23% ferritn 4570 resume phos binders Revelal 800 mg TID with meals once orally accepting last phos level 6.5 BP control with meds as ordered. Patient not on RAAS shad as BP already controlled. may add it if needed. for add prn hydralazine Glycemic control, Dialysis consistent diet IVF lowered to 50 ml/hr due to her ESRD status. Supplemented KDUR Further work up/management as per primary team Dose meds/antibiotics for ESRD status. Please avoid fleets enema/magnesium based laxatives. dose vanco by level Thanks for allowing me to participate in care of your patient. Will follow patient with you. Please call if any Qs Dr Kg Storey Office: [phone] Subjective: Noted events overnight. Patients not much communicative Physical Examination: General Appearance: Comfortable, in no acute respiratory distress, co- operative. Vitals reviewed and noted as below Lungs: Normal respiratory rate/effort. Breath sounds bilateral equal and clear Heart: Normal rate. s1s2 normal. No rub or gallop. Extremities: no edema. Neurological: Patient is alert, awake but not much communicative Skin: Warm and dry. Normal turgor. No rash. Palpitation: Normal elasticity for age Abdomen: Abdomen is soft. Bowel sounds +. There is no abdominal tenderness, no guarding/rigidity or organomegaly : kidney or bladder not palpable Access: permacath Labs/imaging reviewed. Past medical history, past surgical history, family history, social history, allergy reviewed Objective - Vital Signs/Intake and Output Vital Signs (last 24 hours): Temp Pulse Resp BP Pulse Ox 97.5 F L 81 20 165/84 H 99 08/12/16 08:26 06/04/17 08:30 08/12/16 08:26 08/12/16 08:26 08/12/16 08:26 Intake and Output: 08/12/16 08/12/16 06:59 18:59 Intake Total 800 Output Total 1 Balance 799 - Medications Medications: Current Medications Aspirin (Ecotrin) 81 mg PO DAILY [facility] Last Admin: 08/12/16 10:26 Dose: 81 mg Clopidogrel Bisulfate (Plavix) 75 mg PO DAILY [facility] Last Admin: 08/10/16 12:55 Dose: 75 mg Docusate Sodium (Colace) 100 mg PO TID [facility] Last Admin: 08/12/16 14:27 Dose: Not Given Epoetin Nem[facility] ([facility] Heparin Sodium (Porcine) (Heparin) 5,000 units SC Q8H [facility] Last Admin: 08/10/16 18:12 Dose: Not Given Hydralazine HCl (Apresoline) 25 mg PO QID PRN PRN Reason: Other Cefepime HCl 1 gm/ Dextrose 50 mls @ 100 mls/hr IVPB Q12H [facility] Last Admin: 08/12/16 12:40 Dose: 100 mls/hr Vancomycin/Sodium Chloride (Vancocin) 1 gm in 200 mls @ 133 mls/hr IVPB DAILY [facility] Stop: 08/13/16 13:31 Last Admin: 08/12/16 10:27 Dose: 133 mls/hr Dextrose/Sodium Chloride (Dextrose 5%/0.9% Ns 1000 Ml) 1,000 mls @ 50 mls/hr IV .Q20H [facility] Last Admin: 08/12/16 14:28 Dose: 50 mls/hr Lactulose (Enulose) 20 gm PO TID [facility] Last Admin: 08/12/16 14:29 Dose: Not Given Sevelamer Carbonate (Renvela) 800 mg PO TIDCC [facility] Vitamin B Complex/Vit C/Folic Acid (Nephro-Yu) 1 tab PO DAILY [facility] Last Admin: 08/12/16 10:26 Dose: 1 tab - Labs Labs: 08/12/16 07:56 08/12/16 07:56
--- NOTE | 2016-08-12 16:42 | CP.PCM.PN ---
Subjective - Date & Time of Evaluation Date of Evaluation: 08/12/16 Time of Evaluation: 08:00 - Subjective Subjective: awake alert responsive no fever or chills rx in progress Objective - Vital Signs/Intake and Output Vital Signs (last 24 hours): Temp Pulse Resp BP Pulse Ox 97.9 F 65 20 175/77 H 99 08/12/16 15:57 08/12/16 16:35 08/12/16 15:57 08/12/16 15:57 08/12/16 15:57 Intake and Output: 08/12/16 08/12/16 06:59 18:59 Intake Total 800 Output Total 1 Balance 799 - Medications Medications: Current Medications Aspirin (Ecotrin) 81 mg PO DAILY [facility] Last Admin: 08/12/16 10:26 Dose: 81 mg Clopidogrel Bisulfate (Plavix) 75 mg PO DAILY [facility] Last Admin: 08/10/16 12:55 Dose: 75 mg Docusate Sodium (Colace) 100 mg PO TID [facility] Last Admin: 08/12/16 14:27 Dose: Not Given Epoetin Nemesio (Procrit) 4,000 unit IV MWF [facility] Heparin Sodium (Porcine) (Heparin) 5,000 units SC Q8H [facility] Last Admin: 08/10/16 18:12 Dose: Not Given Hydralazine HCl (Apresoline) 25 mg PO QID PRN PRN Reason: SBP >170 OR DBP >110 Cefepime HCl 1 gm/ Dextrose 50 mls @ 100 mls/hr IVPB Q12H [facility] Last Admin: 08/12/16 12:40 Dose: 100 mls/hr Vancomycin/Sodium Chloride (Vancocin) 1 gm in 200 mls @ 133 mls/hr IVPB DAILY [facility] Stop: 08/13/16 13:31 Last Admin: 08/12/16 10:27 Dose: 133 mls/hr Dextrose/Sodium Chloride (Dextrose 5%/0.9% Ns 1000 Ml) 1,000 mls @ 50 mls/hr IV .Q20H [facility] Last Admin: 08/12/16 14:28 Dose: 50 mls/hr Lactulose (Enulose) 20 gm PO TID [facility] Last Admin: 08/12/16 14:29 Dose: Not Given Sevelamer Carbonate (Renvela) 800 mg PO TIDCC [facility] Vitamin B Complex/Vit C/Folic Acid (Nephro-Yu) 1 tab PO DAILY [facility] Last Admin: 08/12/16 10:26 Dose: 1 tab - Labs Labs: 08/12/16 07:56 08/12/16 07:56 - Constitutional Appears: Non-toxic, Chronically Ill - Head Exam Head Exam: NORMOCEPHALIC - Eye Exam Eye Exam: PERRL. absent: Scleral icterus - ENT Exam ENT Exam: Mucous Membranes Dry - Neck Exam Neck Exam: absent: Lymphadenopathy - Respiratory Exam Respiratory Exam: Decreased Breath Sounds, Rhonchi - Cardiovascular Exam Cardiovascular Exam: REGULAR RHYTHM, +S1, +S2 - GI/Abdominal Exam GI & Abdominal Exam: Distended, Soft. absent: Tenderness - Rectal Exam Rectal Exam: Deferred - Exam Exam: NORMAL INSPECTION - Back Exam Back Exam: absent: CVA tenderness (L), CVA tenderness (R) - Neurological Exam Neurological Exam: Alert, Awake, Oriented x3 Assessment and Plan (1) Abdominal pain Status: Acute (2) Acute renal failure syndrome Status: Acute (3) Anemia Status: Acute (4) History of CHF (congestive heart failure) Status: Acute (5) Hypercalcemia associated with chronic dialysis Status: Acute (6) Leukocytosis Status: Acute (7) Uncontrolled diabetes mellitus with complications Status: Acute (8) ESRD (end stage renal disease) on dialysis Status: Chronic (9) HTN (hypertension) Status: Chronic (10) History of CVA (cerebrovascular accident) Status: Chronic
[2016-08-13 07:58] LABS: BASO # 0.1 K/uL (0.0-0.2)
[2016-08-13 08:10] LABS: POTASSIUM 3.5 mmol/L (3.6-5.2)
[2016-08-13 08:12] LABS: BILIRUBIN,TOTAL 0.9 mg/dL (0.2-1.3)
[2016-08-13 08:13] LABS: ALB/GLOB RATIO 0.8 (1.0-2.1); TOTAL PROTEIN 5.4 g/dL (6.3-8.3)
[2016-08-13 08:14] LABS: CALCIUM 7.9 mg/dl (8.6-10.4); PHOSPHOROUS 6.3 mg/dL (2.5-4.5)
[2016-08-13 08:18] LABS: BASO % 1.1 % (0.0-2.0); EOS # 0.2 K/uL (0.0-0.7); EOS % 2.2 % (0.0-4.0); HEMATOCRIT 33.9 % (34.0-47.0); LYMPH # 0.9 K/uL (1.0-4.3); LYMPH % 8.3 % (20.0-40.0); MEAN CELL VOLUME 99.8 fL (81.0-99.0); MEAN CORPUSCULAR HEMOGLOBIN 31.5 pg (27.0-31.0); MEAN CORPUSCULAR HGB CONC 31.6 g/dL (33.0-37.0); MEAN PLATELET VOLUME 11.1 fL (7.2-11.7); MONO # 0.8 K/uL (0.0-0.8); MONO % 7.6 % (0.0-10.0); NRBC % 0.3 % (0.0-2.0); PLATELET COUNT 156 K/uL (130-400); RED CELL DISTRIBUTION WIDTH 16.6 % (11.5-14.5); WHITE BLOOD COUNT 11.1 K/uL (4.8-10.8)
[2016-08-13] MEDS: Dextrose 5%/0.9% NS 1,000 ML IV SCH ×2 (08:54→14:13)
[2016-08-13 09:00] LABS: EOSINOPHIL 2 % (0-4); NEUTROPHIL 79 % (50-75); TOTAL CELLS COUNTED 100
--- NOTE | 2016-08-13 09:13 | VASCLAB ---
PROCEDURE: Right Upper Extremity Venous Duplex Exam HISTORY: swelling PRIORS: None. TECHNIQUE: Right upper extremity, internal jugular, subclavian, axillary, brachial, ulnar, radial, basilic and upper cephalic veins were evaluated. Flow was assessed with color Doppler, compressibility, assessment of phasic flow and augmentation response. Report prepared by ANT Bolton, RVT FINDINGS: RIGHT: 1. Internal Jugular: 1.1. Compressibility - Fully compressible: Thrombus - None : Flow - Phasic: Augmentation -Normal: Reflux - None. 2. Subclavian: 2.1. Compressibility - Fully compressible: Thrombus - None : Flow - Phasic: Augmentation -Normal: Reflux - None. 3. Axillary: 3.1. Compressibility - Fully compressible: Thrombus - None : Flow - Phasic: Augmentation -Normal: Reflux - None. 4. Brachial: 4.1. Compressibility - Fully compressible: Thrombus - None: Flow - Phasic: Augmentation -Normal: Reflux - None. 5. Ulnar: 5.1. Compressibility - Fully compressible: Thrombus - None: Flow - Phasic: Augmentation -Normal: Reflux - None. 6. Radial: 6.1. Compressibility - Fully compressible: Thrombus - None: Flow - Phasic: Augmentation - Normal: Reflux - None. 7. Cephalic: 7.1. Compressibility - Fully compressible: Thrombus - None: Flow - Phasic: Augmentation -Normal: Reflux - None. 8. Basilic: 8.1. Compressibility - Fully compressible: Thrombus - None: Flow - Phasic: Augmentation -Normal: Reflux - None. OTHER FINDINGS: Right: None. IMPRESSION: Right: No evidence of vein thrombosis of the right upper extremity with excellent venous flow. Normal valve function noted of the right side. Normal venous flow noted in the left internal jugular and left subclavian veins.
[2016-08-13] MEDS: Multivitamin Vitamin B Complex (Nephro-Vite) Tab PO SCH (10:00)
[2016-08-13] MEDS: EPOETIN ALFA 4,000 UNIT/ML ML Dialysis IV SCH (10:44)
--- NOTE | 2016-08-13 11:22 | CP.PCM.PN ---
Subjective - Date & Time of Evaluation Date of Evaluation: 08/13/16 Time of Evaluation: 10:45 - Subjective Subjective: Seen on dialysis. Appears comfortable Objective - Vital Signs/Intake and Output Vital Signs (last 24 hours): Temp Pulse Resp BP Pulse Ox 97.7 F 57 L 16 105/63 98 08/13/16 08:40 08/13/16 08:40 08/13/16 08:40 08/13/16 10:40 08/13/16 08:40 Intake and Output: 08/13/16 08/13/16 06:59 18:59 Intake Total 400 Balance 400 - Medications Medications: Current Medications Aspirin (Ecotrin) 81 mg PO DAILY [facility] Last Admin: 08/13/16 10:00 Dose: Not Given Clopidogrel Bisulfate (Plavix) 75 mg PO DAILY [facility] Last Admin: 08/10/16 12:55 Dose: 75 mg Docusate Sodium (Colace) 100 mg PO TID [facility] Last Admin: 08/13/16 10:00 Dose: Not Given Epoetin Nemesio (Procrit) 4,000 unit IV [facility] Last Admin: 08/13/16 10:44 Dose: 4,000 unit Heparin Sodium (Porcine) (Heparin) 5,000 units SC Q8H [facility] Last Admin: 08/10/16 18:12 Dose: Not Given Hydralazine HCl (Apresoline) 25 mg PO QID PRN PRN Reason: SBP >170 OR DBP >110 Cefepime HCl 1 gm/ Dextrose 50 mls @ 100 mls/hr IVPB Q12H [facility] Last Admin: 08/12/16 23:58 Dose: 100 mls/hr Dextrose/Sodium Chloride (Dextrose 5%/0.9% Ns 1000 Ml) 1,000 mls @ 50 mls/hr IV .Q20H [facility] Last Admin: 08/13/16 08:54 Dose: Not Given Vancomycin HCl (Vancocin 750mg/D5w 150 Ml) 150 mls @ 150 mls/hr IVPB [facility] Stop: 08/18/16 09:01 Lactulose (Enulose) 20 gm PO TID [facility] Last Admin: 08/13/16 10:00 Dose: Not Given Sevelamer Carbonate (Renvela) 800 mg PO TIDCC [facility] Last Admin: 08/13/16 08:54 Dose: Not Given Vitamin B Complex/Vit C/Folic Acid (Nephro-Yu) 1 tab PO DAILY [facility] Last Admin: 08/13/16 10:00 Dose: Not Given - Labs Labs: 08/13/16 07:51 08/13/16 07:51 - Respiratory Exam Additional comments: ungs clear - Cardiovascular Exam Cardiovascular Exam: REGULAR RHYTHM - Extremities Exam Additional comments: No edema Assessment and Plan - Assessment and Plan (Free Text) Assessment: ESRD Staph bacteremia. Leukocytosis is resolving Dialysis catheter was changed. On vanco Plan: Continue HD per schedule ABx per ID
[2016-08-13] MEDS: Vancomycin 750mg/D5W 150 ml 150 ML IVPB SCH (12:19)
--- NOTE | 2016-08-13 15:47 | CP.PCM.PN ---
<Zaida Mercedes - Last Filed: 08/13/16 15:44> Subjective - Date & Time of Evaluation Date of Evaluation: 08/13/16 Time of Evaluation: 07:50 - Subjective Subjective: Patient was seen and examined at bedside this morning. She denied headaches, fever/chills, chest pain, shortness of breath or abdominal pain. She is still NPO receiving IV fluids. She has one IV line in her foot. Per documentation she seems to be at her bailing mental status. She has a lot of residual weakness per old CVAs. She needs max assistance. Objective - Vital Signs/Intake and Output Vital Signs (last 24 hours): Temp Pulse Resp BP Pulse Ox 97.5 F L 75 16 99/65 L 100 08/13/16 11:40 08/13/16 15:30 08/13/16 11:40 08/13/16 11:40 08/13/16 11:40 Intake and Output: 08/13/16 08/13/16 06:59 18:59 Intake Total 400 400 Balance 400 400 - Medications Medications: Current Medications Aspirin (Ecotrin) 81 mg PO DAILY [facility] Last Admin: 08/13/16 10:00 Dose: Not Given Clopidogrel Bisulfate (Plavix) 75 mg PO DAILY [facility] Last Admin: 08/10/16 12:55 Dose: 75 mg Docusate Sodium (Colace) 100 mg PO TID [facility] Last Admin: 08/13/16 13:07 Dose: Not Given Epoetin Nemesio (Procrit) 4,000 unit IV [facility] Last Admin: 08/13/16 10:44 Dose: 4,000 unit Heparin Sodium (Porcine) (Heparin) 3,700 units IVP [facility] Heparin Sodium (Porcine) (Heparin) 5,000 units SC Q12 [facility] Hydralazine HCl (Apresoline) 25 mg PO QID PRN PRN Reason: SBP >170 OR DBP >110 Cefepime HCl 1 gm/ Dextrose 50 mls @ 100 mls/hr IVPB Q12H [facility] Last Admin: 08/13/16 12:05 Dose: Not Given Dextrose/Sodium Chloride (Dextrose 5%/0.9% Ns 1000 Ml) 1,000 mls @ 50 mls/hr IV .Q20H [facility] Last Admin: 08/13/16 14:13 Dose: 50 mls/hr Vancomycin HCl (Vancocin 750mg/D5w 150 Ml) 150 mls @ 150 mls/hr IVPB MWF [facility] Stop: 08/18/16 09:01 Last Admin: 08/13/16 12:19 Dose: 150 mls/hr Sevelamer Carbonate (Renvela) 800 mg PO TIDCC [facility] Last Admin: 08/13/16 12:04 Dose: Not Given Vitamin B Complex/Vit C/Folic Acid (Nephro-Yu) 1 tab PO DAILY [facility] Last Admin: 08/13/16 10:00 Dose: Not Given - Labs Labs: 08/13/16 07:51 08/13/16 07:51 - Constitutional Appears: Non-toxic, No Acute Distress, Chronically Ill - Head Exam Head Exam: ATRAUMATIC, NORMAL INSPECTION - Eye Exam Eye Exam: EOMI, Normal appearance - Respiratory Exam Respiratory Exam: Clear to Ausculation Bilateral, NORMAL BREATHING PATTERN. absent: Respiratory Distress - Cardiovascular Exam Cardiovascular Exam: REGULAR RHYTHM, +S1, +S2 - GI/Abdominal Exam GI & Abdominal Exam: Soft, Normal Bowel Sounds. absent: Distended, Firm, Guarding, Tenderness - Back Exam Back Exam: NORMAL INSPECTION Additional comments: stage 3 sacral ulcer. stable - Neurological Exam Neurological Exam: Alert, Awake. absent: Oriented x3 Neuro motor strength exam: Left Upper Extremity: 3, Right Upper Extremity: 3, Left Lower Extremity: 3, Right Lower Extremity: 3 - Psychiatric Exam Psychiatric exam: Anxious, Normal Affect, Normal Mood - Skin Skin Exam: Normal Color, Warm Assessment and Plan - Assessment and Plan (Free Text) Assessment: Assessment: 51 year old female PMHx CVA, DM, HTN, ESRD ON HD (M,W,F) seizure disorder BIBA from senior living for fever, chills, and generalized weakness Plan: Sepsis (code sepsis) WBC decreased further to 11.1, afebrile Will repeat blood cultures, sputum, etc Continue abx. As mentioned before she had HD cathter change Blood culture + gram positive cocci - f/u sensitivity Cefepime 1gm IVPB Q12 (started 08/09) Vancomycin 750 mg IVPB MWF VBG (ph 7.29, p02 33, pC02 37, pHCo3 17.5) VBG lactate 2, repeat lactate 1.7 Urine culture negative EKG - NSR tachycardia, LVH no acute changes Trop negative x 3 Chest X ray - mild right hilar prominence, no infiltrates Head CT - multiple regios of encephalomalacia involving the right frontal lobe, right occipital lobe, and right cerebellar hemisphere. Moderate diffuse generalized atrophy. Enlargement of ventricular system. No acute findings. Similar to previous. (please see full report) Chest/Abd/Pevlis CT - left sided dialysis catheter extends into right ventricle. Should be repositioned. N tube in stomach. Severe retained colonic fecal material with evidence of impaction involving the rectosigmoid colon. NS @ 75cc/hr ID consulted, Dr. Martinez - help appreciated ESRD 08/11: She had a change in the HD cathter on 08/10 on dialysis MWF, got dialysis today Dr. Mi consulted, help appreciated Chest/Abd/Pevlis CT - left sided dialysis catheter extends into right ventricle R IJ permacath placed by Dr. Castaneda 08/10 - okay to use as per surgery Constipation s/p disimpaction Chest/Abd/Pevlis CT - left sided dialysis catheter extends into right ventricle. Should be repositioned. N tube in stomach. Severe retained colonic fecal material with evidence of impaction involving the rectosigmoid colon. Colace 100mg po tid Fleat enema given Patient had BM Lactulose added Surgery: Dr. Castaneda History of CVA with extensive right brain damage Patient appears to be at her baseline mental status 08/11: Per review of notes it appears her baseline mental status is AAO x 1. Answering very very simple questions. Patient will need another swallow eval. NGT is now out. hx of CVA ASA 81 mg PO daily Plavix 75 mg PO daily Seizures Oxcarbazepine 300mg PO BID f/u serum level seizure/aspiration precautions HLD Trig 154, Chol 87, LDL <30, HDL 14 HTN controlled - normotensive monitor BP Prophylactic Measures NGT removed by surgery Nichols in place - monitor In/Outs SCD c/i PT/OT Will get bedside swallow eval and consider adding diet. Still NPO. <Dorie Murphy V - Last Filed: 08/15/16 08:47> Objective - Vital Signs/Intake and Output Vital Signs (last 24 hours): Temp Pulse Resp BP Pulse Ox 99.1 F 66 20 115/57 L 98 08/15/16 07:35 08/15/16 07:35 08/15/16 07:35 08/15/16 07:35 08/15/16 07:35 Intake and Output: 08/15/16 08/15/16 06:59 18:59 Intake Total 550 Balance 550 - Medications Medications: Current Medications Aspirin (Ecotrin) 81 mg PO DAILY [facility] Last Admin: 08/14/16 09:07 Dose: 81 mg Clopidogrel Bisulfate (Plavix) 75 mg PO DAILY [facility] Last Admin: 08/10/16 12:55 Dose: 75 mg Docusate Sodium (Colace) 100 mg PO TID [facility] Last Admin: 08/14/16 18:05 Dose: 100 mg Epoetin Nemesio (Procrit) 4,000 unit IV [facility] Last Admin: 08/13/16 10:44 Dose: 4,000 unit Heparin Sodium (Porcine) (Heparin) 3,700 units IVP [facility] Hydralazine HCl (Apresoline) 25 mg PO QID PRN PRN Reason: SBP >170 OR DBP >110 Cefepime HCl 1 gm/ Dextrose 50 mls @ 100 mls/hr IVPB Q12H [facility] Last Admin: 08/15/16 00:20 Dose: 100 mls/hr Vancomycin HCl (Vancocin 750mg/D5w 150 Ml) 150 mls @ 150 mls/hr IVPB [facility] Stop: 08/18/16 09:01 Last Admin: 08/13/16 12:19 Dose: 150 mls/hr Oxcarbazepine (Trileptal) 300 mg PO BID [facility] Last Admin: 08/14/16 12:39 Dose: 300 mg Sevelamer Carbonate (Renvela) 800 mg PO TIDCC [facility] Last Admin: 08/15/16 08:00 Dose: 800 mg Vitamin B Complex/Vit C/Folic Acid (Nephro-Yu) 1 tab PO DAILY [facility] Last Admin: 08/14/16 09:07 Dose: 1 tab - Labs Labs: 08/15/16 07:06 08/15/16 07:06 Attending/Attestation - Attestation I have personally seen and examined this patient.: Yes I have fully participated in the care of the patient.: Yes I have reviewed all pertinent clinical information, including history, physical exam and plan: Yes Notes (Text): This is a late computer entry 08/13/16. Patient seen, examined, and case discussed with day-time resident. Patient seen during her dialysis session, alert, awake, oriented X1, answers basic simple yes and no type questions. Appears to be improving based from admission. White count improving. Patient is currently on IV abx note bacteremia and possible suspicion from prior infected HD catheter. Patient is currently NPO at the time, and started on per recommendations by swallow evaluation in the late evening. Patient has a prior history of extensive CVA noted in CT head on admission. Infectious disease on case->help appreciated Assessment/Plan 1) Sepsis (code sepsis) * Infectious disease (Dr. Conroy)-->help appreciated * General surgery (Dr. Castaneda)-->help appreciated * D51/2NS 50cc/hr * Criteria: WBC: 30.1, Tmax: 102.1F; per sepsis protocol: VBG lactate 2, repeat lactate 1.7 * Blood culture (08/08/16): coag negative Staph Aureus (1/2 bottles) * Blood culture (08/13/16): pending * Urine culture (08/08/16): negative * Abx: Cefepime 1gm IVPB Q12 (started 08/09/16) and Vancomycin 750 mg IVPB MWF * Chest X ray (08/08/16) - mild right hilar prominence, no infiltrates * Chest xray (08/09/16): endotracheal tube terminates approximately 4/9cm above the kristan. Nasogastric tube extends expected location of the stomach. Right IJ approach dialysis catheter likely terminates within the right atrium * Head CT (08/08/16) - multiple regions of encephalomalacia involving the right frontal lobe, right occipital lobe, and right cerebellar hemisphere. Moderate diffuse generalized atrophy. Enlargement of ventricular system. Age indeterminate nondisplaced right naal bone fracture No acute findings. Similar to previous. (please see full report) * Chest/Abd/Pelvis CT (08/08/16) - left sided dialysis catheter extends into right ventricle. Should be repositioned. N tube in stomach. Severe retained colonic fecal material with evidence of impaction involving the rectosigmoid colon. Nasogastric tube extends to the stomach. Mild bibasilar atelectasis. Cholecystecomy. Bilateral atrophic kidneys. Numerous bilateral renal calcifications sveeral of which appear vascular. No obstructing calculi. Mild B/ L Adrenal glad hypertrophy. Atrophic pancreas. Numerous punctuate splenic calcifications. severe retain colonic femal materail w evidence of ipaction involving the rectosigmoid colon * HD catheter exchanged on 08/10/16 2. ESRD * Nephrology (Dr. Mi)-->help appreciated * Vascular surgery (Dr. Castaneda)-->help appreciated * Chest/Abd/Pelvis CT (08/08/16) - left sided dialysis catheter extends into right ventricle. Should be repositioned. N tube in stomach. Severe retained colonic fecal material with evidence of impaction involving the rectosigmoid colon. Nasogastric tube extends to the stomach. Mild bibasilar atelectasis. Cholecystecomy. Bilateral atrophic kidneys. Numerous bilateral renal calcifications sveeral of which appear vascular. No obstructing calculi. Mild B/ L Adrenal glad hypertrophy. Atrophic pancreas. Numerous punctuate splenic calcifications. severe retain colonic femal materail w evidence of ipaction involving the rectosigmoid colon * Dialysis M/W/F * R IJ permacath placed by Dr. Castaneda 08/10 - okay to use as per surgery * Renevla 800mg PO TIDCC * Procrit 4000 IV MWF 3. Constipation * Chest/Abd/Pelvis CT (08/08/16) - left sided dialysis catheter extends into right ventricle. Should be repositioned. N tube in stomach. Severe retained colonic fecal material with evidence of impaction involving the rectosigmoid colon. Nasogastric tube extends to the stomach. Mild bibasilar atelectasis. Cholecystecomy. Bilateral atrophic kidneys. Numerous bilateral renal calcifications sveeral of which appear vascular. No obstructing calculi. Mild B/ L Adrenal glad hypertrophy. Atrophic pancreas. Numerous punctuate splenic calcifications. severe retain colonic femal materail w evidence of ipaction involving the rectosigmoid colon * s/p disimpaction 4. History of CVA * Patient appears to be at her baseline mental status * Head CT (08/08/16) - multiple regions of encephalomalacia involving the right frontal lobe, right occipital lobe, and right cerebellar hemisphere. Moderate diffuse generalized atrophy. Enlargement of ventricular system. Age indeterminate nondisplaced right naal bone fracture No acute findings. Similar to previous. (please see full report) * ASA 81 mg PO daily * Plavix 75 mg PO daily 5. History of Seizures * held Oxcarbazepine 300mg PO BID * seizure/aspiration precautions 6. Hyperlipidemia * Trig 154, Chol 87, LDL <30, HDL 14 7. Hypertension * Monitor vitals signs * ESRD (M/W/F) * On gentle IV hydration until patient's feeding status is determine 8. Prophylactic Measures * NGT removed by surgery * Nichols in place - monitor In/Outs * SCD c/i * PT/OT
[2016-08-13] MEDS ORDERED: Dextrose 5%/0.9% NS 1,000 ML IV SCH (15:52)
[2016-08-14] MEDS: Multivitamin Vitamin B Complex (Nephro-Vite) Tab PO SCH (09:07)
--- NOTE | 2016-08-14 11:14 | CP.PCM.PN ---
<DarenZaida - Last Filed: 08/14/16 14:49> Subjective - Date & Time of Evaluation Date of Evaluation: 08/14/16 Time of Evaluation: 07:30 - Subjective Subjective: Patient was seen and examined at bedside this morning. She denied headaches, fever/chills, chest pain, shortness of breath or abdominal pain. Pt passed swallow study, so she is no longer NPO. She has one IV line in her foot. Per documentation she seems to be at her baseline mental status. She has a lot of residual weakness per old CVAs. She needs max assistance. Objective - Vital Signs/Intake and Output Vital Signs (last 24 hours): Temp Pulse Resp BP Pulse Ox 98.1 F 74 18 111/74 98 08/14/16 00:41 08/14/16 00:41 08/14/16 00:41 08/14/16 00:41 08/14/16 00:41 Intake and Output: 08/14/16 08/14/16 06:59 18:59 Intake Total 600 Balance 600 - Medications Medications: Current Medications Aspirin (Ecotrin) 81 mg PO DAILY [facility] Last Admin: 08/14/16 09:07 Dose: 81 mg Clopidogrel Bisulfate (Plavix) 75 mg PO DAILY [facility] Last Admin: 08/10/16 12:55 Dose: 75 mg Docusate Sodium (Colace) 100 mg PO TID [facility] Last Admin: 08/14/16 09:07 Dose: 100 mg Epoetin Nemesio (Procrit) 4,000 unit IV [facility] Last Admin: 08/13/16 10:44 Dose: 4,000 unit Heparin Sodium (Porcine) (Heparin) 3,700 units IVP [facility] [place] Hydralazine HCl (Apresoline) 25 mg PO QID PRN PRN Reason: SBP >170 OR DBP >110 Cefepime HCl 1 gm/ Dextrose 50 mls @ 100 mls/hr IVPB Q12H [facility] Last Admin: 08/14/16 00:30 Dose: 100 mls/hr Vancomycin HCl (Vancocin 750mg/D5w 150 Ml) 150 mls @ 150 mls/hr IVPB [facility] Stop: 08/18/16 09:01 Last Admin: 08/13/16 12:19 Dose: 150 mls/hr Oxcarbazepine (Trileptal) 300 mg PO BID [facility] Last Admin: 08/13/16 19:45 Dose: 300 mg Sevelamer Carbonate (Renvela) 800 mg PO TIDCC [facility] Last Admin: 08/14/16 08:39 Dose: 800 mg Vitamin B Complex/Vit C/Folic Acid (Nephro-Yu) 1 tab PO DAILY [facility] Last Admin: 08/14/16 09:07 Dose: 1 tab - Labs Labs: 08/13/16 07:51 08/13/16 07:51 - Constitutional Appears: Non-toxic, No Acute Distress - Head Exam Head Exam: ATRAUMATIC, NORMOCEPHALIC - Eye Exam Eye Exam: EOMI, Normal appearance. absent: Scleral icterus - ENT Exam ENT Exam: Mucous Membranes Moist - Respiratory Exam Respiratory Exam: Clear to Ausculation Bilateral, NORMAL BREATHING PATTERN. absent: Respiratory Distress Additional comments: poor respiratory effort - Cardiovascular Exam Cardiovascular Exam: REGULAR RHYTHM, +S1, +S2. absent: JVD - GI/Abdominal Exam GI & Abdominal Exam: Soft, Normal Bowel Sounds. absent: Distended, Firm, Tenderness Assessment and Plan - Assessment and Plan (Free Text) Assessment: Assessment: 51 year old female PMHx CVA, DM, HTN, ESRD ON HD (M,W,F) seizure disorder BIBA from senior living for fever, chills, and generalized weakness Plan: Sepsis (code sepsis) WBC decreased to 8 normalized, afebrile Will repeat blood cultures, sputum, etc Continue abx. As mentioned before she had HD catheter change Blood culture + gram positive cocci in one bottle on admission Cefepime 1gm IVPB Q12 (started 08/09) Vancomycin 750 mg IVPB MW - Will check with ID to see how long to continue therapy VBG (ph 7.29, p02 33, pC02 37, pHCo3 17.5) VBG lactate 2, repeat lactate 1.7 Urine culture negative EKG - NSR tachycardia, LVH no acute changes Trop negative x 3 Chest X ray - mild right hilar prominence, no infiltrates Head CT - multiple regios of encephalomalacia involving the right frontal lobe, right occipital lobe, and right cerebellar hemisphere. Moderate diffuse generalized atrophy. Enlargement of ventricular system. No acute findings. Similar to previous. (please see full report) Chest/Abd/Pevlis CT - left sided dialysis catheter extends into right ventricle. Should be repositioned. N tube in stomach. Severe retained colonic fecal material with evidence of impaction involving the rectosigmoid colon. NS @ 75cc/hr ID consulted, Dr. Martinez - help appreciated ESRD 08/11: She had a change in the HD catheter on 08/10 on dialysis MWF, got dialysis today Dr. Mi consulted, help appreciated Chest/Abd/Pevlis CT - left sided dialysis catheter extends into right ventricle R IJ permacath placed by Dr. Castaneda 08/10 - okay to use as per surgery Constipation s/p disimpaction Chest/Abd/Pelvis CT - left sided dialysis catheter extends into right ventricle. Should be repositioned. N tube in stomach. Severe retained colonic fecal material with evidence of impaction involving the rectosigmoid colon. Colace 100mg po tid Fleat enema given Patient had BM Lactulose added Surgery: Dr. Castaneda History of CVA with extensive right brain damage Patient appears to be at her baseline mental status 08/11: Per review of notes it appears her baseline mental status is AAO x 1. Answering very very simple questions. Patient will need another swallow eval. NGT is now out. hx of CVA ASA 81 mg PO daily Plavix 75 mg PO daily on hold Seizures Oxcarbazepine 300mg PO BID - on hold due to mental status f/u serum level seizure/aspiration precautions Vaginal Bleeding OB consulted, Dr. Fajardo - help appreciated f/u FSH level f/u transvaginal US HLD Trig 154, Chol 87, LDL <30, HDL 14 HTN controlled - normotensive monitor BP Prophylactic Measures NGT removed by surgery Nichols in place - monitor In/Outs SCD c/i PT/OT Pureed/Honey nectar thick liquid <Dorie Murphy V - Last Filed: 08/15/16 09:04> Objective - Vital Signs/Intake and Output Vital Signs (last 24 hours): Temp Pulse Resp BP Pulse Ox 99.1 F 66 20 115/57 L 98 08/15/16 07:35 08/15/16 07:35 08/15/16 07:35 08/15/16 07:35 08/15/16 07:35 Intake and Output: 08/15/16 08/15/16 06:59 18:59 Intake Total 550 Balance 550 - Medications Medications: Current Medications Aspirin (Ecotrin) 81 mg PO DAILY [facility] Last Admin: 08/14/16 09:07 Dose: 81 mg Clopidogrel Bisulfate (Plavix) 75 mg PO DAILY [facility] Last Admin: 08/10/16 12:55 Dose: 75 mg Docusate Sodium (Colace) 100 mg PO TID [facility] Last Admin: 08/14/16 18:05 Dose: 100 mg Epoetin Nemesio (Procrit) 4,000 unit IV [facility] [place] Last Admin: 08/13/16 10:44 Dose: 4,000 unit Heparin Sodium (Porcine) (Heparin) 3,700 units IVP [facility] [place] Hydralazine HCl (Apresoline) 25 mg PO QID PRN PRN Reason: SBP >170 OR DBP >110 Cefepime HCl 1 gm/ Dextrose 50 mls @ 100 mls/hr IVPB Q12H [facility] Last Admin: 08/15/16 00:20 Dose: 100 mls/hr Vancomycin HCl (Vancocin 750mg/D5w 150 Ml) 150 mls @ 150 mls/hr IVPB [facility] [place] Stop: 08/18/16 09:01 Last Admin: 08/13/16 12:19 Dose: 150 mls/hr Oxcarbazepine (Trileptal) 300 mg PO BID [facility] Last Admin: 08/14/16 12:39 Dose: 300 mg Sevelamer Carbonate (Renvela) 800 mg PO TIDCC [facility] Last Admin: 08/15/16 08:00 Dose: 800 mg Vitamin B Complex/Vit C/Folic Acid (Nephro-Yu) 1 tab PO DAILY [facility] Last Admin: 08/14/16 09:07 Dose: 1 tab - Labs Labs: 08/15/16 07:06 08/15/16 07:06 Attending/Attestation - Attestation I have personally seen and examined this patient.: Yes I have fully participated in the care of the patient.: Yes I have reviewed all pertinent clinical information, including history, physical exam and plan: Yes Notes (Text): This is a late computer entry for 08/14/16. Patient seen, examined and case discussed with day-time resident. Patient seen this afternoon, little flat, compared to yesterday. Patient noted to have vaginal bleeding with clots. Patient cannot comment if this is her normal period or post-menopausal given baseline mental status. Consult OB-[employer]TER CLERK for further evaluation. Patient's repeat blood culture (08/13/16): showing no growth; will coordinate with infectious disease to determine antibiotics for discharge and if patient warrants a PICC line for discharge planning. White count is improving. Assessment/Plan 1) Sepsis (code sepsis) * Infectious disease (Dr. Conroy)-->help appreciated * General surgery (Dr. Castaneda)-->help appreciated * Criteria: WBC: 30.1, Tmax: 102.1F; per sepsis protocol: VBG lactate 2, repeat lactate 1.7 * Blood culture (08/08/16): coag negative Staph Aureus (1/2 bottles) * Blood culture (08/13/16): no growth after 24 hours * Urine culture (08/08/16): negative * Abx: Cefepime 1gm IVPB Q12 (started 08/09/16) and Vancomycin 750 mg IVPB MWF * Chest X ray (08/08/16) - mild right hilar prominence, no infiltrates * Chest xray (08/09/16): endotracheal tube terminates approximately 4/9cm above the kristan. Nasogastric tube extends expected location of the stomach. Right IJ approach dialysis catheter likely terminates within the right atrium * Head CT (08/08/16) - multiple regions of encephalomalacia involving the right frontal lobe, right occipital lobe, and right cerebellar hemisphere. Moderate diffuse generalized atrophy. Enlargement of ventricular system. Age indeterminate nondisplaced right naal bone fracture No acute findings. Similar to previous. (please see full report) * Chest/Abd/Pelvis CT (08/08/16) - left sided dialysis catheter extends into right ventricle. Should be repositioned. N tube in stomach. Severe retained colonic fecal material with evidence of impaction involving the rectosigmoid colon. Nasogastric tube extends to the stomach. Mild bibasilar atelectasis. Cholecystecomy. Bilateral atrophic kidneys. Numerous bilateral renal calcifications sveeral of which appear vascular. No obstructing calculi. Mild B/ L Adrenal glad hypertrophy. Atrophic pancreas. Numerous punctuate splenic calcifications. severe retain colonic femal materail w evidence of ipaction involving the rectosigmoid colon * HD catheter exchanged on 08/10/16 2. ESRD * Nephrology (Dr. Mi)-->help appreciated * Vascular surgery (Dr. Castaneda)-->help appreciated * Chest/Abd/Pelvis CT (08/08/16) - left sided dialysis catheter extends into right ventricle. Should be repositioned. N tube in stomach. Severe retained colonic fecal material with evidence of impaction involving the rectosigmoid colon. Nasogastric tube extends to the stomach. Mild bibasilar atelectasis. Cholecystecomy. Bilateral atrophic kidneys. Numerous bilateral renal calcifications sveeral of which appear vascular. No obstructing calculi. Mild B/ L Adrenal glad hypertrophy. Atrophic pancreas. Numerous punctuate splenic calcifications. severe retain colonic femal materail w evidence of ipaction involving the rectosigmoid colon * Dialysis M/W/F * R IJ permacath placed by Dr. Castaneda 08/10 - okay to use as per surgery * Renevla 800mg PO TIDCC * Procrit 4000 IV MWF 3. Constipation * Chest/Abd/Pelvis CT (08/08/16) - left sided dialysis catheter extends into right ventricle. Should be repositioned. N tube in stomach. Severe retained colonic fecal material with evidence of impaction involving the rectosigmoid colon. Nasogastric tube extends to the stomach. Mild bibasilar atelectasis. Cholecystecomy. Bilateral atrophic kidneys. Numerous bilateral renal calcifications sveeral of which appear vascular. No obstructing calculi. Mild B/ L Adrenal glad hypertrophy. Atrophic pancreas. Numerous punctuate splenic calcifications. severe retain colonic femal materail w evidence of ipaction involving the rectosigmoid colon * s/p disimpaction 4. History of CVA * Patient appears to be at her baseline mental status * Head CT (08/08/16) - multiple regions of encephalomalacia involving the right frontal lobe, right occipital lobe, and right cerebellar hemisphere. Moderate diffuse generalized atrophy. Enlargement of ventricular system. Age indeterminate nondisplaced right naal bone fracture No acute findings. Similar to previous. (please see full report) * ASA 81 mg PO daily * Plavix 75 mg PO daily 5. History of Seizures * held Oxcarbazepine 300mg PO BID * seizure/aspiration precautions 6. Hyperlipidemia * Trig 154, Chol 87, LDL <30, HDL 14 7. Hypertension * Monitor vitals signs * ESRD (M/W/F) * Off IV fluids * 8. Vaginal bleeding * Consult OB-[employer]TER CLERK (Dr. Fajardo) help appreciated * Ordered for pelvic/transvaginal US * FSH 9. Prophylactic Measures * Nichols in place - monitor In/Outs * SCD c/i * PT/OT * Heparin with dialysis
--- NOTE | 2016-08-14 11:34 | CP.PCM.PN ---
Subjective - Date & Time of Evaluation Date of Evaluation: 08/14/16 Time of Evaluation: 07:00 - Subjective Subjective: ESRD Staph bacteremia. Leukocytosis is resolving Dialysis catheter was changed. On vanco awake alert bedbound nad Objective - Vital Signs/Intake and Output Vital Signs (last 24 hours): Temp Pulse Resp BP Pulse Ox 98.1 F 74 18 111/74 98 08/14/16 00:41 08/14/16 00:41 08/14/16 00:41 08/14/16 00:41 08/14/16 00:41 Intake and Output: 08/14/16 08/14/16 06:59 18:59 Intake Total 600 Balance 600 - Medications Medications: Current Medications Aspirin (Ecotrin) 81 mg PO DAILY [facility] Last Admin: 08/14/16 09:07 Dose: 81 mg Clopidogrel Bisulfate (Plavix) 75 mg PO DAILY [facility] Last Admin: 08/10/16 12:55 Dose: 75 mg Docusate Sodium (Colace) 100 mg PO TID [facility] Last Admin: 08/14/16 09:07 Dose: 100 mg Epoetin Nemesio (Procrit) 4,000 unit IV MWF [facility] Last Admin: 08/13/16 10:44 Dose: 4,000 unit Heparin Sodium (Porcine) (Heparin) 3,700 units IVP [facility] [place] Hydralazine HCl (Apresoline) 25 mg PO QID PRN PRN Reason: SBP >170 OR DBP >110 Cefepime HCl 1 gm/ Dextrose 50 mls @ 100 mls/hr IVPB Q12H [facility] Last Admin: 08/14/16 00:30 Dose: 100 mls/hr Vancomycin HCl (Vancocin 750mg/D5w 150 Ml) 150 mls @ 150 mls/hr IVPB MWF [facility] Stop: 08/18/16 09:01 Last Admin: 08/13/16 12:19 Dose: 150 mls/hr Oxcarbazepine (Trileptal) 300 mg PO BID [facility] Last Admin: 08/13/16 19:45 Dose: 300 mg Sevelamer Carbonate (Renvela) 800 mg PO TIDCC [facility] Last Admin: 08/14/16 08:39 Dose: 800 mg Vitamin B Complex/Vit C/Folic Acid (Nephro-Yu) 1 tab PO DAILY [facility] Last Admin: 08/14/16 09:07 Dose: 1 tab - Labs Labs: 08/13/16 07:51 08/13/16 07:51 - Constitutional Appears: Non-toxic, Chronically Ill - Head Exam Head Exam: NORMOCEPHALIC - Eye Exam Eye Exam: PERRL. absent: Scleral icterus - ENT Exam ENT Exam: Mucous Membranes Dry, Normal External Ear Exam - Neck Exam Neck Exam: absent: Lymphadenopathy - Respiratory Exam Respiratory Exam: Decreased Breath Sounds, Rhonchi - Cardiovascular Exam Cardiovascular Exam: REGULAR RHYTHM, +S1, +S2 - GI/Abdominal Exam GI & Abdominal Exam: Distended, Soft. absent: Tenderness - Rectal Exam Rectal Exam: Deferred - Exam Exam: NORMAL INSPECTION - Extremities Exam Extremities Exam: absent: Pedal Edema - Back Exam Back Exam: absent: CVA tenderness (L), CVA tenderness (R) - Neurological Exam Neurological Exam: Alert, Awake, Oriented x3 - Skin Skin Exam: Dry Assessment and Plan (1) Abdominal pain Status: Acute (2) Acute renal failure syndrome Status: Acute (3) Anemia Status: Acute (4) History of CHF (congestive heart failure) Status: Acute (5) Hypercalcemia associated with chronic dialysis Status: Acute (6) Leukocytosis Status: Acute (7) Uncontrolled diabetes mellitus with complications Status: Acute (8) ESRD (end stage renal disease) on dialysis Status: Chronic (9) HTN (hypertension) Status: Chronic (10) History of CVA (cerebrovascular accident) Status: Chronic
[2016-08-14 12:19] LABS: LYMPH # 0.9 K/uL (1.0-4.3)
[2016-08-14 12:25] LABS: BASO # 0.1 K/uL (0.0-0.2); BASO % 0.7 % (0.0-2.0); EOS # 0.1 K/uL (0.0-0.7); EOS % 1.3 % (0.0-4.0); HEMATOCRIT 35.5 % (34.0-47.0); LYMPH % 11.1 % (20.0-40.0); MEAN CELL VOLUME 100.1 fL (81.0-99.0); MEAN CORPUSCULAR HEMOGLOBIN 31.6 pg (27.0-31.0); MEAN CORPUSCULAR HGB CONC 31.5 g/dL (33.0-37.0); MEAN PLATELET VOLUME 11.5 fL (7.2-11.7); MONO # 0.7 K/uL (0.0-0.8); MONO % 9.2 % (0.0-10.0); RED CELL DISTRIBUTION WIDTH 16.3 % (11.5-14.5)
[2016-08-14 12:52] LABS: POTASSIUM 3.1 mmol/L (3.6-5.2)
[2016-08-14 12:55] LABS: ALB/GLOB RATIO 0.9 (1.0-2.1); BILIRUBIN,TOTAL 0.9 mg/dL (0.2-1.3); CALCIUM 8.4 mg/dl (8.6-10.4); PHOSPHOROUS 4.7 mg/dL (2.5-4.5); TOTAL PROTEIN 5.7 g/dL (6.3-8.3)
[2016-08-14 12:56] LABS: MAGNESIUM 1.9 mg/dL (1.6-2.3)
--- NOTE | 2016-08-14 13:14 | CP.PCM.PN ---
Subjective - Date & Time of Evaluation Date of Evaluation: 08/14/16 Time of Evaluation: 11:20 - Subjective Subjective: Appears comfortable in bed Objective - Vital Signs/Intake and Output Vital Signs (last 24 hours): Temp Pulse Resp BP Pulse Ox 97 F L 67 20 160/80 H 99 08/14/16 08:30 08/14/16 08:30 08/14/16 08:30 08/14/16 08:30 08/14/16 08:30 Intake and Output: 08/14/16 08/14/16 06:59 18:59 Intake Total 600 Balance 600 - Medications Medications: Current Medications Aspirin (Ecotrin) 81 mg PO DAILY [facility] Last Admin: 08/14/16 09:07 Dose: 81 mg Clopidogrel Bisulfate (Plavix) 75 mg PO DAILY [facility] Last Admin: 08/10/16 12:55 Dose: 75 mg Docusate Sodium (Colace) 100 mg PO TID [facility] Last Admin: 08/14/16 13:04 Dose: 100 mg Epoetin Nemesio (Procrit) 4,000 unit IV [facility] [place] Last Admin: 08/13/16 10:44 Dose: 4,000 unit Heparin Sodium (Porcine) (Heparin) 3,700 units IVP [facility] [place] Hydralazine HCl (Apresoline) 25 mg PO QID PRN PRN Reason: SBP >170 OR DBP >110 Cefepime HCl 1 gm/ Dextrose 50 mls @ 100 mls/hr IVPB Q12H [facility] Last Admin: 08/14/16 12:10 Dose: 100 mls/hr Vancomycin HCl (Vancocin 750mg/D5w 150 Ml) 150 mls @ 150 mls/hr IVPB [facility] [place] Stop: 08/18/16 09:01 Last Admin: 08/13/16 12:19 Dose: 150 mls/hr Oxcarbazepine (Trileptal) 300 mg PO BID [facility] Last Admin: 08/14/16 12:39 Dose: 300 mg Sevelamer Carbonate (Renvela) 800 mg PO TIDCC [facility] Last Admin: 08/14/16 12:39 Dose: 800 mg Vitamin B Complex/Vit C/Folic Acid (Nephro-Yu) 1 tab PO DAILY [facility] Last Admin: 08/14/16 09:07 Dose: 1 tab - Labs Labs: 08/14/16 12:15 08/14/16 12:15 - Respiratory Exam Additional comments: Lungs clear - Cardiovascular Exam Cardiovascular Exam: REGULAR RHYTHM - Extremities Exam Additional comments: No edema Assessment and Plan - Assessment and Plan (Free Text) Assessment: ESRD Staph bacteremia. Abx per ID Leukocytosis resolved & dialysis catheter was changed Dementia Plan: Stable on dialysis Continue HD, MWF
--- NOTE | 2016-08-14 20:03 | CP.PCM.CON ---
History of Present Illness - History of Present Illness History of Present Illness: Reason for consult-vaginal bleeding HPI 51 y/o female admitted with sepsis.Patient noticed to have episode of vaginal bleeding today. 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 Past Patient History - Infectious Disease Hx of Infectious Diseases: None - Tetanus Immunizations Tetanus Immunization: Unknown - Past Medical History & Family History Past Medical History?: Yes - Past Social History Smoking Status: Former Smoker - CARDIAC Hx Congestive Heart Failure: Yes Hx Hypercholesterolemia: Yes Hx Hypertension: Yes - PULMONARY Hx Pneumonia: Yes - NEUROLOGICAL HX Cerebrovascular Accident: Yes - HEENT Hx HEENT Problems: Yes (poor vision, blurred right eye) - RENAL Hx Chronic Kidney Disease: Yes Hx Dialysis: Yes Hx Renal Failure: Yes - ENDOCRINE/METABOLIC Hx Diabetes Mellitus Type 2: Yes Hx Hypothyroidism: No - HEMATOLOGICAL/ONCOLOGICAL Hx Anemia: Yes - INTEGUMENTARY Hx Dermatological Problems: No - MUSCULOSKELETAL/RHEUMATOLOGICAL Hx Arthritis: No - GASTROINTESTINAL Hx Gall Bladder Disease: No - GENITOURINARY/GYNECOLOGICAL Hx Sexually Transmitted Disorders: No - PSYCHIATRIC Hx Anxiety: Yes Hx Depression: Yes Hx Substance Use: No - SURGICAL HISTORY Hx Cholecystectomy: Yes (04/02/13) - ANESTHESIA Hx Anesthesia: Yes Hx Anesthesia Reactions: No Hx Malignant Hyperthermia: No Meds Allergies/Adverse Reactions: Allergies Allergy/AdvReac Type Severity Reaction Status Date / Time No Known Allergies Allergy Verified 06/18/16 16:03 - Medications Medications: Current Medications Aspirin (Ecotrin) 81 mg PO DAILY [facility] Last Admin: 08/14/16 09:07 Dose: 81 mg Clopidogrel Bisulfate (Plavix) 75 mg PO DAILY [facility] Last Admin: 08/10/16 12:55 Dose: 75 mg Docusate Sodium (Colace) 100 mg PO TID [facility] Last Admin: 08/14/16 18:05 Dose: 100 mg Epoetin Nemesio (Procrit) 4,000 unit IV MWF [facility] Last Admin: 08/13/16 10:44 Dose: 4,000 unit Heparin Sodium (Porcine) (Heparin) 3,700 units IVP MWF [facility] Hydralazine HCl (Apresoline) 25 mg PO QID PRN PRN Reason: SBP >170 OR DBP >110 Cefepime HCl 1 gm/ Dextrose 50 mls @ 100 mls/hr IVPB Q12H [facility] Last Admin: 08/14/16 12:10 Dose: 100 mls/hr Vancomycin HCl (Vancocin 750mg/D5w 150 Ml) 150 mls @ 150 mls/hr IVPB [facility] Stop: 08/18/16 09:01 Last Admin: 08/13/16 12:19 Dose: 150 mls/hr Oxcarbazepine (Trileptal) 300 mg PO BID [facility] Last Admin: 08/14/16 12:39 Dose: 300 mg Sevelamer Carbonate (Renvela) 800 mg PO TIDCC [facility] Last Admin: 08/14/16 18:05 Dose: 800 mg Vitamin B Complex/Vit C/Folic Acid (Nephro-Yu) 1 tab PO DAILY [facility] Last Admin: 08/14/16 09:07 Dose: 1 tab Physical Exam - Head Exam Head Exam: ATRAUMATIC - Respiratory Exam Respiratory Exam: Clear to Auscultation Bilateral - Cardiovascular Exam Cardiovascular Exam: REGULAR RHYTHM - GI/Abdominal Exam GI & Abdominal Exam: Soft. absent: Firm - Exam Additional comments: VULVA -No lesions; blood stuck to pubic hair; no growth or lesiosn seen vagina-dark blood seen in vagina in scant amount; no active bleeding seen from cervix uterus and adnexa -unable to palpate secondary to patient discomfort - Skin Skin Exam: Normal Color Results - Vital Signs Recent Vital Signs: Last Vital Signs Temp 98.7 F 08/14/16 16:00 Pulse 64 08/14/16 16:00 Resp 18 08/14/16 16:00 BP 166/71 H 08/14/16 16:00 Pulse Ox 97 08/14/16 16:00 - Labs Result Diagrams: 08/14/16 12:15 08/14/16 12:15 Labs: Laboratory Results - last 24 hr 08/13/16 08/14/16 08/14/16 22:35 00:09 06:36 WBC RBC Hgb Hct MCV MCH MCHC RDW Plt Count MPV Neut % (Auto) Lymph % (Auto) [place] % (Auto) Eos % (Auto) Baso % (Auto) Neut # Lymph # [place] # Eos # Baso # Sodium Potassium Chloride Carbon Dioxide Anion Gap BUN Creatinine Est GFR ( Amer) Est GFR (Non-Af Amer) POC Glucose (mg/dL) 183 H 202 H 212 H Random Glucose Calcium Phosphorus Magnesium Total Bilirubin AST ALT Alkaline Phosphatase Total Protein Albumin Globulin Albumin/Globulin Ratio 08/14/16 08/14/16 08/14/16 11:42 12:15 12:15 WBC 8.0 RBC 3.55 L Hgb 11.2 Hct 35.5 MCV 100.1 H MCH 31.6 H MCHC 31.5 L RDW 16.3 H Plt Count 139 MPV 11.5 Neut % (Auto) 77.7 H Lymph % (Auto) 11.1 L [place] % (Auto) 9.2 Eos % (Auto) 1.3 Baso % (Auto) 0.7 Neut # 6.2 Lymph # 0.9 L [place] # 0.7 Eos # 0.1 Baso # 0.1 Sodium 139 Potassium 3.1 L Chloride 100 Carbon Dioxide 26 Anion Gap 16 BUN 28 H Creatinine 3.8 H Est GFR ( Amer) 15 Est GFR (Non-Af Amer) 13 POC Glucose (mg/dL) 211 H Random Glucose 181 H Calcium 8.4 L Phosphorus 4.7 H Magnesium 1.9 Total Bilirubin 0.9 AST 32 ALT 32 Alkaline Phosphatase 128 H Total Protein 5.7 L Albumin 2.7 L Globulin 3.1 Albumin/Globulin Ratio 0.9 L 08/14/16 16:59 WBC RBC Hgb Hct MCV MCH MCHC RDW Plt Count MPV Neut % (Auto) Lymph % (Auto) [place] % (Auto) Eos % (Auto) Baso % (Auto) Neut # Lymph # [place] # Eos # Baso # Sodium Potassium Chloride Carbon Dioxide Anion Gap BUN Creatinine Est GFR ( Amer) Est GFR (Non-Af Amer) POC Glucose (mg/dL) 177 H Random Glucose Calcium Phosphorus Magnesium Total Bilirubin AST ALT Alkaline Phosphatase Total Protein Albumin Globulin Albumin/Globulin Ratio Assessment & Plan (1) Abnormal vaginal bleeding Assessment and Plan: 51 y/o female with multiple diseases admitted with sepsis.Sepsis improved.patient on dialysis. Noted to have an episode of vaginal bleeding.Patient with no active bleeding at time of exam.Due to no active bleeding no acute intervention indicated at this point.She would still need workup for vaginal bleeding.Due to patients inability to answer questions at this point it needs to be determined if patient has premenopausal or postmenopausal bleeding. Check fsh level Check coags and platelet count Pelvic ultrasound monitor for any further episodes of bleeding continue management as per primary team Status: Acute
[2016-08-14] MEDS ORDERED: Potassium Chloride 20 mEq/15 ml LIQ UD PO ONE (23:41)
[2016-08-15 07:18] LABS: BASO # 0.1 K/uL (0.0-0.2); EOS # 0.2 K/uL (0.0-0.7); EOS % 3.1 % (0.0-4.0); HEMATOCRIT 32.2 % (34.0-47.0); LYMPH # 1.4 K/uL (1.0-4.3); MEAN CELL VOLUME 99.6 fL (81.0-99.0); MEAN CORPUSCULAR HEMOGLOBIN 31.6 pg (27.0-31.0); MEAN CORPUSCULAR HGB CONC 31.7 g/dL (33.0-37.0); MEAN PLATELET VOLUME 10.7 fL (7.2-11.7); MONO # 0.7 K/uL (0.0-0.8); WHITE BLOOD COUNT 6.8 K/uL (4.8-10.8)
[2016-08-15 07:33] LABS: POTASSIUM 3.7 mmol/L (3.6-5.2)
[2016-08-15 07:35] LABS: ALB/GLOB RATIO 0.7 (1.0-2.1); BILIRUBIN,TOTAL 0.7 mg/dL (0.2-1.3); TOTAL PROTEIN 5.5 g/dL (6.3-8.3)
[2016-08-15 07:36] LABS: CALCIUM 8.6 mg/dl (8.6-10.4); PHOSPHOROUS 5.5 mg/dL (2.5-4.5)
[2016-08-15 08:14] LABS: FSH 12.2 mIU/mL
--- NOTE | 2016-08-15 10:00 | US ---
HISTORY: vaginal bleeding COMPARISON: None available. TECHNIQUE: Transabdominal FINDINGS: UTERUS: Measures 11.5 x 4.1 x 5.6 cm. No uterine mass. ENDOMETRIUM: Measures 5 mm in diameter. Trace endometrial fluid. CERVIX: Heterogeneous endocervical soft tissues likely representing blood clot, particularly in light of the history of current vaginal bleeding. Cannot rule out underlying cervical mass. Further evaluation is advised. RIGHT OVARY: Measures 2.7 x 1.4 x 3.6 cm. No solid mass. Normal flow. 1.5 cm cyst, likely physiologic. LEFT OVARY: Measures 2.8 x 1.7 x 2.3 cm. No solid mass. Normal flow. FREE FLUID: No significant free fluid noted. OTHER FINDINGS: Diffuse thickening of bladder wall. Bladder suboptimally distended. Nevertheless, consider the possibility of cystitis and correlate with urinalysis. IMPRESSION: Heterogeneous endocervical echoes, likely blood products. Cannot rule out endocervical mass. Further evaluation suggested. Trace endometrial fluid. Diffusely thickened urinary bladder wall. Rule out cystitis.
[2016-08-15] MEDS: Multivitamin Vitamin B Complex (Nephro-Vite) Tab PO SCH (10:11)
[2016-08-15] MEDS: EPOETIN ALFA 4,000 UNIT/ML ML Dialysis IV SCH (11:55)
--- NOTE | 2016-08-15 13:16 | CP.PCM.PN ---
Subjective - Date & Time of Evaluation Date of Evaluation: 08/15/16 Time of Evaluation: 14:00 - Subjective Subjective: pt cannot undestand so results discussed with nurse. bleeding is possible period. sono hetrogenous tissue in the cervix poss clot fsh 12.2 Objective - Vital Signs/Intake and Output Vital Signs (last 24 hours): Temp Pulse Resp BP Pulse Ox 97.7 F 74 16 102/75 98 08/15/16 09:45 08/15/16 12:54 08/15/16 12:54 08/15/16 12:54 08/15/16 12:54 Intake and Output: 08/15/16 08/15/16 06:59 18:59 Intake Total 550 Balance 550 - Medications Medications: Current Medications Aspirin (Ecotrin) 81 mg PO DAILY [facility] Last Admin: 08/14/16 09:07 Dose: 81 mg Clopidogrel Bisulfate (Plavix) 75 mg PO DAILY [facility] Last Admin: 08/10/16 12:55 Dose: 75 mg Docusate Sodium (Colace) 100 mg PO TID [facility] Last Admin: 08/15/16 10:11 Dose: Not Given Epoetin Nemesio (Procrit) 4,000 unit IV [facility] Last Admin: 08/15/16 11:55 Dose: 4,000 unit Heparin Sodium (Porcine) (Heparin) 3,700 units IVP [facility] Last Admin: 08/15/16 11:55 Dose: 3,700 units Hydralazine HCl (Apresoline) 25 mg PO QID PRN PRN Reason: SBP >170 OR DBP >110 Cefepime HCl 1 gm/ Dextrose 50 mls @ 100 mls/hr IVPB Q12H [facility] Last Admin: 08/15/16 00:20 Dose: 100 mls/hr Vancomycin HCl (Vancocin 750mg/D5w 150 Ml) 150 mls @ 150 mls/[facility] Stop: 08/18/16 09:01 Last Admin: 08/13/16 12:19 Dose: 150 mls/hr Oxcarbazepine (Trileptal) 300 mg PO BID [facility] Last Admin: 08/14/16 12:39 Dose: 300 mg Sevelamer Carbonate (Renvela) 800 mg PO TIDCC [facility] Last Admin: 08/15/16 12:45 Dose: Not Given Vitamin B Complex/Vit C/Folic Acid (Nephro-Yu) 1 tab PO DAILY [facility] Last Admin: 08/15/16 10:11 Dose: Not Given - Labs Labs: 08/15/16 07:06 08/15/16 07:06 Assessment and Plan - Assessment and Plan (Free Text) Assessment: 51 yr with dm/htn/diabled/possible period Plan: plan no active issue on dc follow up with obgyn.. thank you
[2016-08-15] MEDS: Vancomycin 750mg/D5W 150 ml 150 ML IVPB SCH (13:54)
--- NOTE | 2016-08-15 15:26 | CP.PCM.DIS ---
Provider - Provider Date of Admission: 08/08/16 09:39 Attending physician: Dorie Murphy DO Consults: Dr. Marycarmen BENAVIDES Time Spent in preparation of Discharge (in minutes): 35 Diagnosis - Discharge Diagnosis (1) Sepsis Status: Acute Comment: Likely from dialysis line cathether. Continue Vanc IV for 7 more doses with dialysis Hospital Course - Lab Results Lab Results: Micro Results 08/13/16 11:50 Blood-During Dialysis Blood Culture - Preliminary NO GROWTH AFTER 24 HOURS Most Recent Lab Values WBC 6.8 K/uL (4.8-10.8) 08/15/16 07:06 RBC 3.24 Mil/uL (3.80-5.20) L 08/15/16 07:06 Hgb 10.2 g/dL (11.0-16.0) L 08/15/16 07:06 Hct 32.2 % (34.0-47.0) L 08/15/16 07:06 MCV 99.6 fL (81.0-99.0) H 08/15/16 07:06 MCH 31.6 pg (27.0-31.0) H 08/15/16 07:06 MCHC 31.7 g/dL (33.0-37.0) L 08/15/16 07:06 RDW 16.0 % (11.5-14.5) H 08/15/16 07:06 Plt Count 143 K/uL (130-400) 08/15/16 07:06 MPV 10.7 fL (7.2-11.7) 08/15/16 07:06 Neut % (Auto) 64.9 % (50.0-75.0) 08/15/16 07:06 Lymph % (Auto) 20.0 % (20.0-40.0) 08/15/16 07:06 Dolores % (Auto) 11.0 % (0.0-10.0) H 08/15/16 07:06 Eos % (Auto) 3.1 % (0.0-4.0) 08/15/16 07:06 Baso % (Auto) 1.0 % (0.0-2.0) 08/15/16 07:06 Neut # 4.4 K/uL (1.8-7.0) 08/15/16 07:06 Lymph # 1.4 K/uL (1.0-4.3) 08/15/16 07:06 Dolores # 0.7 K/uL (0.0-0.8) 08/15/16 07:06 Eos # 0.2 K/uL (0.0-0.7) 08/15/16 07:06 Baso # 0.1 K/uL (0.0-0.2) 08/15/16 07:06 Neutrophils % (Manual) 79 % (50-75) H 08/13/16 07:51 Band Neutrophils % 2 % (0-2) 08/12/16 07:56 Lymphocytes % (Manual) 12 % (20-40) L 08/13/16 07:51 Monocytes % (Manual) 7 % (0-10) 08/13/16 07:51 Eosinophils % (Manual) 2 % (0-4) 08/13/16 07:51 Nucleated RBC % 1 % (0-0) H 08/09/16 11:52 Platelet Estimate Normal (NORMAL) 08/13/16 07:51 Large Platelets Present 08/12/16 07:56 Polychromasia Slight 08/11/16 07:11 Hypochromasia (manual) Slight 08/13/16 07:51 Poikilocytosis (manual Slight 08/13/16 07:51 Anisocytosis (manual) Slight 08/13/16 07:51 Macrocytosis (manual) Moderate 08/12/16 07:56 Tear Drop Cells Slight 08/11/16 07:11 Ovalocytes Slight 08/12/16 07:56 [place] Cells Slight 08/09/16 11:52 pO2 33 mm/Hg (30-55) 08/08/16 08:07 VBG pH 7.29 (7.32-7.43) L 08/08/16 08:07 VBG pCO2 37 mmHg (40-60) L 08/08/16 08:07 VBG HCO3 17.5 mmol/L 08/08/16 08:07 VBG Total CO2 18.9 mmol/L (22-28) L 08/08/16 08:07 VBG O2 Sat (Calc) 57.4 % (40-65) 08/08/16 08:07 VBG Base Excess -8.1 mmol/L (0.0-2.0) L 08/08/16 08:07 VBG Potassium 4.9 mmol/L (3.6-5.2) 08/08/16 08:07 Sodium 142.0 mmol/l (132-148) 08/08/16 08:07 Chloride 111.0 mmol/L (98-107) H 08/08/16 08:07 Glucose 234 mg/dl (65-105) H 08/08/16 08:07 Lactate 2.0 mmol/L (0.7-2.1) 08/08/16 08:07 Sodium 140 mmol/L (132-148) 08/15/16 07:06 Potassium 3.7 mmol/L (3.6-5.2) 08/15/16 07:06 Chloride 104 mmol/L (98-107) 08/15/16 07:06 Carbon Dioxide 22 mmol/L (22-30) 08/15/16 07:06 Anion Gap 17 (10-20) 08/15/16 07:06 BUN 35 mg/dL (7-17) H 08/15/16 07:06 Creatinine 4.7 MG/DL (0.7-1.2) H 08/15/16 07:06 Est GFR ( Amer) 12 08/15/16 07:06 Est GFR (Non-Af Amer) 10 08/15/16 07:06 POC Glucose (mg/dL) 152 mg/dL (65-110) H 08/15/16 12:04 Random Glucose 142 mg/dL (65-105) H 08/15/16 07:06 Lactic Acid 1.7 mmol/L (0.7-2.1) 08/08/16 13:25 Calcium 8.6 mg/dl (8.6-10.4) 08/15/16 07:06 Phosphorus 5.5 mg/dL (2.5-4.5) H 08/15/16 07:06 Magnesium 2.0 mg/dL (1.6-2.3) 08/15/16 07:06 Iron 27 ug/dL (37-170) L 08/12/16 07:56 TIBC 119 ug/dL (250-450) L 08/12/16 07:56 % Saturation 23 (20-55) 08/12/16 07:56 Ferritin 4570.0 ng/mL 08/12/16 07:56 Total Bilirubin 0.7 mg/dL (0.2-1.3) 08/15/16 07:06 AST 20 U/L (14-36) 08/15/16 07:06 ALT 29 U/L (9-52) 08/15/16 07:06 Alkaline Phosphatase 109 U/L (38-126) 08/15/16 07:06 Total Creatine Kinase 39 U/L (30-135) 08/08/16 21:44 CK-MB (Mass) < 0.22 ng/mL (0.0-3.38) 08/08/16 21:44 Troponin I 0.0730 ng/mL (0.00-0.120) 08/08/16 08:04 Troponin I, Quant 0.0570 ng/mL (0.00-0.120) 08/08/16 21:44 NT-Pro-B Natriuret Pep 5230 pg/mL (0-900) H 08/08/16 08:04 Total Protein 5.5 g/dL (6.3-8.3) L 08/15/16 07:06 Albumin 2.2 g/dL (3.5-5.0) L 08/15/16 07:06 Globulin 3.3 gm/dL (2.2-3.9) 08/15/16 07:06 Albumin/Globulin Ratio 0.7 (1.0-2.1) L 08/15/16 07:06 Triglycerides 154 mg/dL (0-149) H D 08/09/16 11:52 Cholesterol 87 mg/dL (0-199) 08/09/16 11:52 LDL Cholesterol Direct < 30 mg/dL (0-129) 08/09/16 11:52 HDL Cholesterol 14 mg/dL (30-70) L 08/09/16 11:52 Vitamin B12 > 1000 pg/mL (239-931) H 08/12/16 07:56 Folate > 20.0 ng/mL 08/12/16 07:56 TSH 3rd Generation 0.51 mIU/L (0.46-4.68) 08/09/16 11:52 FSH 3rd Generation 12.2 mIU/mL 08/15/16 07:06 Venous Blood Potassium 4.9 mmol/L (3.6-5.2) 08/08/16 08:07 Urine Color Yellow (YELLOW) 08/08/16 21:44 Urine Clarity Turbid (Clear) 08/08/16 21:44 Urine pH 8.0 (5.0-8.0) 08/08/16 21:44 Ur Specific Stout 1.012 (1.003-1.030) 08/08/16 21:44 Urine Protein 2+ mg/dL (NEGATIVE) H 08/08/16 21:44 Urine Glucose (UA) 3+ mg/dL (Normal) H 08/08/16 21:44 Urine Ketones Negative mg/dL (NEGATIVE) 08/08/16 21:44 Urine Blood 3+ (NEGATIVE) H 08/08/16 21:44 Urine Nitrate Negative (NEGATIVE) 08/08/16 21:44 Urine Bilirubin Negative (NEGATIVE) 08/08/16 21:44 Urine Urobilinogen Normal mg/dL (0.2-1.0) 08/08/16 21:44 Ur Leukocyte Esterase 3+ Carrillo/uL (Negative) H 08/08/16 21:44 Urine WBC (Auto) 295 /hpf (0-5) H 08/08/16 21:44 Urine RBC (Auto) 124 /hpf (0-3) H 08/08/16 21:44 Urine WBC Clumps (Auto) Few /hpf (NONE) H 08/08/16 21:44 Ur Squamous Epith Cells 37 /hpf (0-5) H 08/08/16 21:44 Ur Renal Epithelial Cell 1 /hpf (0-3) 08/08/16 21:44 Urine Bacteria Mod (<OCC) H 08/08/16 21:44 10-Hydroxycarbazepine 29.5 mcg/mL (8.0-35.0) 08/08/16 08:33 Hep Bs Antigen Negative (NEGATIVE) 08/13/16 09:57 Hep Bs Antibody Negative (NEGATIVE) 08/13/16 09:57 Hep B Core IgM Ab Cancelled 08/13/16 09:57 - Hospital Course Hospital Course: All: NKDA PMD: Dr. Eldridge, Dr. Mi (nephro) PMH: depression, ESRD on HD (MWF), HTN, hyperlipidemia, DM II, old CVA, hx of seizures Meds: Asa, plavix, floraster, Repaglinide 0.5 mg AC, Oxcarbazepine 300mg PO BID , Gabapentin 100 mg PO TID, Duloxetine 60mg PO daily, Vit C 500 mg PO Daily PSH: cholecystectomy in 2013 Soc Hx: quit tobacco/etoh use in 2010 On admission: Patient [facility] from [facility] for evaluation of generalized weakness , fever. Patient has h/o CVA, DM, HTN, ESRD ON HD (M,W,F) seizure disorder. She is unable to provide history/info due to clinical condition, history is as per [place] form and EMS. Call placed to Alphonse and daughter but no response received. Baseline mental stsus unknown. Coded sepsis called in ED. NG tube placed. Patient given abx IV. During Hospital Stay: Patient was altered on presentaion. She fit SIRS criteria (Criteria: WBC: 30.1, Tmax: 102.1F; per sepsis protocol: VBG lactate 2, repeat lactate 1.7) with possible sepsis from dialysis line infection. UA and culture was negative. Blood culture (08/08/16): coag negative Staph Aureus (1/2 bottles) Repeat Blood culture (08/13/16): no growth after [address] Marycarmen BENAVIDES was consulted andCefepime 1gm IVPB Q12 (started 08/09/16) and Vancomycin 750 mg IVPB MWF were administed during her stay. Chest X ray (08/08/16) - mild right hilar prominence, no infiltrates. Chest xray (08/09/16): endotracheal tube terminates approximately 4/9cm above the kristan. Nasogastric tube extends expected location of the stomach. Right IJ approach dialysis catheter likely terminates within the right atrium. Head CT (08/08/16) - multiple regions of encephalomalacia involving the right frontal lobe, right occipital lobe, and right cerebellar hemisphere. Moderate diffuse generalized atrophy. Enlargement of ventricular system. Age indeterminate nondisplaced right naal bone fracture No acute findings. Similar to previous. (please see full report) HD catheter exchanged on 08/10/16 Patient is ESRD on dialysis, Nephrology (Dr. Mi) was consulted. She continued dialysis on her normal days: MWF. Chest/Abd/Pelvis CT (08/08/16) showed left sided dialysis catheter extends into right ventricle. Should be repositioned. N tube in stomach. Severe retained colonic fecal material with evidence of impaction involving the rectosigmoid colon. Nasogastric tube extends to the stomach. Mild bibasilar atelectasis. Cholecystecomy. Bilateral atrophic kidneys. Numerous bilateral renal calcifications several of which appear vascular. No obstructing calculi. Mild B/L Adrenal glad hypertrophy. Atrophic pancreas. Numerous punctuate splenic calcifications. severe retain colonic fecal material w evidence of impaction involving the rectosigmoid colon. R IJ permacath placed by Dr. Castaneda 08/10 - okay to use as per surgery. She was given Renevla 800mg PO TIDCC and Procrit 4000 IV MWF with dialysis Patient was constipation and had fecal impaction. Chest/Abd/Pelvis CT (08/08/16) showed Numerous punctuate splenic calcifications. severe retain colonic fecal material w evidence of impaction involving the rectosigmoid colon. She is s/p disimpaction by Dr. Castaneda. Patient has a history of CVAs. Patient appears to be at her baseline mental status but was altered on admission. Head CT (08/08/16) - multiple regions of encephalomalacia involving the right frontal lobe, right occipital lobe, and right cerebellar hemisphere. Moderate diffuse generalized atrophy. Enlargement of ventricular system. Age indeterminate nondisplaced right nasal bone fracture No acute findings. Similar to previous. (please see full report) Patient to continue ASA 81 mg PO daily and Plavix 75 mg PO daily. Patient has a history of seizures. Her home dose of Oxcarbazepine 300mg PO BID was held due to mental status. She was kept on Seizure and aspiration precautions. Patient was noted to have vaginal bleeding. Due to patient's mental status we were not able to verify is this is abnormal for her or just menstruation. OB was consulted. Ordered for pelvic US showed possible blood clots. FSH 12. Likely menstruation. No further intervention needed. Can follow up. Patient stable for discharge back to [facility]. Patient is to be seen by her primary care doctor at [facility]. Per [place], Dr. Conroy, she is to receive Vancomycin 750mg IV with dialysis on MWF for 7 mores doses starting (08/17). Patient is to be continued on her current medications which include: Aspirin 81 mg PO daily Plavix 75 mg PO daily Colace 100 mg PO BID Procrit MWF with dialysis Heparin 3700 U IVP MWF Hydralazine 25mg PO QID Vancomycin 750mg IVPB x 7 more doses Patient's Oxcarbazepine 300 mg PO BID is to be held due to patients mental status. She had a stage 2 sacral ulcer on her back. She is to be frequently turned and repositioned every 2 hours. She is to have Aloe [place] applied to the ulcer 3 times a day. Patient is to return to the emergency room if symptoms persist. Discharge Exam - Head Exam Head Exam: ATRAUMATIC - Eye Exam Eye Exam: EOMI, Normal appearance, PERRL Pupil Exam: NORMAL ACCOMODATION - ENT Exam ENT Exam: Mucous Membranes Dry - Respiratory Exam Respiratory Exam: NORMAL BREATHING PATTERN. absent: Accessory Muscle Use, Respiratory Distress - Cardiovascular Exam Cardiovascular Exam: REGULAR RHYTHM, +S1, +S2 - GI/Abdominal Exam GI & Abdominal Exam: Normal Bowel Sounds, Soft. absent: Distended, Firm, Guarding, Tenderness - Extremities Exam Extremities exam: normal inspection - Back Exam Back exam: NORMAL INSPECTION - Neurological Exam Neurological exam: Alert Additional comments: no oriented. bed bound - Psychiatric Exam Psychiatric exam: Flat Affect, Normal Affect, Normal Mood - Skin Skin Exam: Normal Color, Warm Additional comments: sacral ulcer stage 2 Discharge Plan - Discharge Medications Prescriptions: Petrolatum,White [Aloe [place]] 56 gm TP TID #1 oint...g. Vancomycin HCl in Dextrose 5 % [Vancomycin-D5w 1.5 Gram/250 ml] 1.5 gm IV MWF # 7 plast..bag - Follow Up Plan Condition: FAIR Disposition: HOME/ ROUTINE Additional Instructions: Patient stable for discharge back to [facility]. Patient is to be seen by her primary care doctor at [facility]. Per Dr. Marycarmen BENAVIDES, she is to receive Vancomycin 750mg IV with dialysis on MWF for 7 mores doses starting (08/17). Patient is to be continued on her current medications which include: Aspirin 81 mg PO daily Plavix 75 mg PO daily Colace 100 mg PO BID Procrit MWF with dialysis Heparin 3700 U IVP MWF Hydralazine 25mg PO QID Vancomycin 750mg IVPB x 7 more doses Patient's Oxcarbazepine 300 mg PO BID is to be held due to patients mental status. She had a stage 2 sacral ulcer on her back. She is to be frequently turned and repositioned every 2 hours. She is to have Aloe [place] applied to the ulcer 3 times a day. Patient is to return to the emergency room if symptoms persist. Referrals: Jc Conroy MD [Staff Provider] -
[2016-08-15 15:40] VITALS: BP 133/80; PULSE 73; RESP 20; TEMP 98.4; O2SAT 97
--- NOTE | 2016-08-15 15:44 | CP.PCM.PN ---
Subjective - Date & Time of Evaluation Date of Evaluation: 08/15/16 Time of Evaluation: 03:30 - Subjective Subjective: No acute distress noted Objective - Vital Signs/Intake and Output Vital Signs (last 24 hours): Temp Pulse Resp BP Pulse Ox 98.4 F 73 20 133/80 97 08/15/16 15:39 08/15/16 15:39 08/15/16 15:39 08/15/16 15:39 08/15/16 15:39 Intake and Output: 08/15/16 08/15/16 06:59 18:59 Intake Total 550 50 Balance 550 50 - Medications Medications: Current Medications Aspirin (Ecotrin) 81 mg PO DAILY [facility] Last Admin: 08/15/16 13:53 Dose: 81 mg Clopidogrel Bisulfate (Plavix) 75 mg PO DAILY [facility] Last Admin: 08/10/16 12:55 Dose: 75 mg Docusate Sodium (Colace) 100 mg PO TID [facility] Last Admin: 08/15/16 13:53 Dose: 100 mg Epoetin Nemesio (Procrit) 4,000 unit IV [facility] Last Admin: 08/15/16 11:55 Dose: 4,000 unit Heparin Sodium (Porcine) (Heparin) 3,700 units IVP [facility] Last Admin: 08/15/16 11:55 Dose: 3,700 units Hydralazine HCl (Apresoline) 25 mg PO QID PRN PRN Reason: SBP >170 OR DBP >110 Cefepime HCl 1 gm/ Dextrose 50 mls @ 100 mls/hr IVPB Q12H [facility] Last Admin: 08/15/16 13:53 Dose: 100 mls/hr Vancomycin HCl (Vancocin 750mg/D5w 150 Ml) 150 mls @ 150 mls/hr IVPB [facility] Stop: 08/18/16 09:01 Last Admin: 08/15/16 13:54 Dose: 150 mls/hr Oxcarbazepine (Trileptal) 300 mg PO BID [facility] Last Admin: 08/14/16 12:39 Dose: 300 mg Sevelamer Carbonate (Renvela) 800 mg PO TIDCC [facility] Last Admin: 08/15/16 12:45 Dose: Not Given Vitamin B Complex/Vit C/Folic Acid (Nephro-Yu) 1 tab PO DAILY [facility] Last Admin: 06/07/17 10:11 Dose: Not Given - Labs Labs: 08/15/16 07:06 08/15/16 07:06 - Respiratory Exam Additional comments: Lungs clear - Cardiovascular Exam Cardiovascular Exam: REGULAR RHYTHM - Extremities Exam Additional comments: No edema Assessment and Plan - Assessment and Plan (Free Text) Assessment: ESRD on HD Staph bacteremia, line infection Dialysis catheter was changed Vaginal bleed Plan: Dialysis was tolerated well today Cont HD, MWF Abx per ID
--- NOTE | 2016-08-16 01:23 | CARD ---
APPROVED REPORT EKG Measurement Heart [id number] <Conclusion> Sinus tachycardia Left axis deviation Abnormal ECG
--- NOTE | 2016-08-16 01:45 | CARD ---
APPROVED REPORT EKG Measurement Heart [id number] <Conclusion> Sinus tachycardia Left axis deviation Cannot rule out Anterior infarct, age undetermined Abnormal ECG
== END 2016-08-15 18:25 | DRG 543 ==
LOC: C.ER 06:52 → C.9E 09:39 → C.6T 11:13
PROVIDERS: ADMIT Hospitalist; ATTEND Hospitalist
PROC: 5A1D60Z (ICD-10-PCS; 2016-08-08)
PROC: 02HV33Z Insertion of Infusion Device into Superior Vena Cava, Percutaneous Approach (ICD-10-PCS; principal; 2016-08-09 12:45)
PROC: 0DCQ7ZZ Extirpation of Matter from Anus, Via Natural or Artificial Opening (ICD-10-PCS; 2016-08-09 12:45)
DX: T82.7XXA Infection and inflammatory reaction due to other cardiac and vascular devices, implants and grafts, initial encounter (principal); A41.9 Sepsis, unspecified organism; N18.6 End stage renal disease; I13.2 Hypertensive heart and chronic kidney disease with heart failure and with stage 5 chronic kidney disease, or end stage renal disease; N17.9 Acute kidney failure, unspecified; F03.90 Unspecified dementia, unspecified severity, without behavioral disturbance, psychotic disturbance, mood disturbance, and anxiety; S02.2XXA Fracture of nasal bones, initial encounter for closed fracture; J98.11 Atelectasis; E11.22 Type 2 diabetes mellitus with diabetic chronic kidney disease; E11.65 Type 2 diabetes mellitus with hyperglycemia; E87.6 Hypokalemia; I50.9 Heart failure, unspecified; K56.41 Fecal impaction; N39.0 Urinary tract infection, site not specified; D64.9 Anemia, unspecified; B95.8 Unspecified staphylococcus as the cause of diseases classified elsewhere; E78.00 Pure hypercholesterolemia, unspecified; G40.909 Epilepsy, unspecified, not intractable, without status epilepticus; H54.7 Unspecified visual loss; Z99.2 Dependence on renal dialysis; Z87.01 Personal history of pneumonia (recurrent); Z86.73 Personal history of transient ischemic attack (TIA), and cerebral infarction without residual deficits; G93.89 Other specified disorders of brain; Z87.891 Personal history of nicotine dependence; Z74.01 Bed confinement status; N25.81 Secondary hyperparathyroidism of renal origin